=== PATIENT | male | born 1945 | race Caucasian/White ===

== ENCOUNTER → 2019-03-26 09:19 | Outpatient (BNVA) | payer OTHER, SELFPAY | PROVIDERS: Family Provider Emergency Medicine Emergency Medical Services; PCP Emergency Medicine Emergency Medical Services; Visit Provider Internal Medicine Cardiovascular Disease | DX: I48.91 Unspecified atrial fibrillation (principal) | CPT/HCPCS: 85610 ==

== ENCOUNTER → 2019-04-23 08:06 | Outpatient (BNVA) | payer OTHER, SELFPAY | PROVIDERS: Family Provider Emergency Medicine Emergency Medical Services; PCP Emergency Medicine Emergency Medical Services; Visit Provider Internal Medicine Cardiovascular Disease | DX: I48.91 Unspecified atrial fibrillation (principal) | CPT/HCPCS: 85610 ==

== ENCOUNTER → 2019-05-07 14:13 | Outpatient (BNVA) | payer OTHER, SELFPAY | PROVIDERS: Family Provider Emergency Medicine Emergency Medical Services; PCP Emergency Medicine Emergency Medical Services; Visit Provider Internal Medicine Cardiovascular Disease | DX: I48.91 Unspecified atrial fibrillation (principal); I50.9 Heart failure, unspecified; T46.2X1A Poisoning by other antidysrhythmic drugs, accidental (unintentional), initial encounter; I25.5 Ischemic cardiomyopathy; Z72.0 Tobacco use; I47.1 Supraventricular tachycardia; Z86.711 Personal history of pulmonary embolism; Z86.718 Personal history of other venous thrombosis and embolism; N18.9 Chronic kidney disease, unspecified; Z79.01 Long term (current) use of anticoagulants; I25.10 Atherosclerotic heart disease of native coronary artery without angina pectoris; J44.9 Chronic obstructive pulmonary disease, unspecified; E11.9 Type 2 diabetes mellitus without complications; I10 Essential (primary) hypertension; I73.9 Peripheral vascular disease, unspecified; Z98.890 Other specified postprocedural states; Z95.1 Presence of aortocoronary bypass graft | CPT/HCPCS: 85610 ==

== ENCOUNTER 2019-09-26 13:36 | Outpatient (CLI) | payer OTHER, SELFPAY ==
--- NOTE | 2019-09-26 13:51 | MR_ITS ---
WS: [id number] MRI CERVICAL SPINE NONCONTRAST TECHNIQUE: Sagittal T1, T2 and STIR imaging. Axial T2, gradient, and fiesta imaging. CLINICAL INFORMATION: PAIN COMPARISON: None. FINDINGS: Straightening of the normal cervical lordosis. Mild spondylitic changes. Slight retrolisthesis C3 on C4. Cord signal is normal. C2-C3: Normal. C3-C4: Slight retrolisthesis. Disc osteophyte complex eccentric to the left with mild to moderate rishabh tral canal stenosis. Severe left and mild right bony foraminal narrowing. Mild facet arthropathy. C4-C5: Disc osteophyte complex eccentric to the left with severe left foraminal narrowing. Mild to mo derate central canal stenosis. Mild right foraminal narrowing. Mild facet arthropathy. C5-C6: Disc osteophyte complex with endplate ridging. Mild central canal stenosis. Mild bilateral bon y foraminal narrowing. Moderate facet arthropathy. C6-C7: Mild disc osteophytic ridging. Moderate left and mild right bony foraminal narrowing. Moderate facet arthropathy. Mild central canal stenosis. Small shallow right disc osteophyte protrusion. C7-T1: Osteophytic ridging with Mild bilateral bony foraminal narrowing. Spinal canal is patent. T1-T2: Normal. Visualized brain stem structures: Normal. Prevertebral soft tissues: Normal. MR/MR cervical spin wo con* [id number] IMPRESSION: 1. Straightening of the normal cervical lordosis with mild spondylitic changes . Slight retrolisthesis C3 on C4. Cord signal is normal. 2. Mild to moderate central canal stenosis C3-C4 and C4-C5 due to disc osteoph yte complexes with slight indentation on cervical cord. 3. Mild central canal stenosis C6-C7 with a shallow right pericentral disc ost eophyte complex. 4. Multilevel moderate to severe bony foraminal narrowing mainly due to facet arthropathy with uncovertebral joint hypertrophy worse at left C3-C4, left C4-C 5, left C6-C7. 5. Mild edema in the left C2-3 articulating facets likely due to degenerative change.
== END 2019-09-26 13:37 | disposition home or self-care (01) ==
LOC: RADWPI 13:39
PROVIDERS: Family Provider Emergency Medicine Emergency Medical Services; PCP Emergency Medicine Emergency Medical Services; Visit Provider Family Medicine
DX: M54.2 Cervicalgia (principal)
CPT/HCPCS: 72141

== ENCOUNTER → 2019-10-11 09:11 | Outpatient (BNVA) | payer OTHER, SELFPAY | PROVIDERS: Family Provider Emergency Medicine Emergency Medical Services; PCP Emergency Medicine Emergency Medical Services; Visit Provider Internal Medicine Cardiovascular Disease | DX: I48.91 Unspecified atrial fibrillation (principal); Z79.01 Long term (current) use of anticoagulants | CPT/HCPCS: 85610 ==

== ENCOUNTER → 2019-10-29 08:25 | Outpatient (BNVA) | payer OTHER, SELFPAY | PROVIDERS: Family Provider Emergency Medicine Emergency Medical Services; PCP Emergency Medicine Emergency Medical Services; Referring Provider Emergency Medicine Emergency Medical Services; Visit Provider Anesthesiology Pain Medicine | DX: M54.12 Radiculopathy, cervical region (principal); M47.812 Spondylosis without myelopathy or radiculopathy, cervical region; M48.02 Spinal stenosis, cervical region; F17.210 Nicotine dependence, cigarettes, uncomplicated; Z79.891 Long term (current) use of opiate analgesic | CPT/HCPCS: 99205 ==

== ENCOUNTER → 2019-11-07 09:25 | Outpatient (BNVA) | payer OTHER, SELFPAY | PROVIDERS: Family Provider Emergency Medicine Emergency Medical Services; PCP Emergency Medicine Emergency Medical Services; Visit Provider Internal Medicine | DX: I48.91 Unspecified atrial fibrillation (principal) | CPT/HCPCS: 85610 ==

== ENCOUNTER → 2019-11-15 08:59 | Outpatient (BNVA) | payer OTHER, SELFPAY | PROVIDERS: Family Provider Emergency Medicine Emergency Medical Services; PCP Emergency Medicine Emergency Medical Services; Visit Provider Internal Medicine | DX: I48.91 Unspecified atrial fibrillation (principal); Z79.01 Long term (current) use of anticoagulants | CPT/HCPCS: 85610 ==

== ENCOUNTER → 2019-11-26 09:52 | Outpatient (BNVA) | payer OTHER, SELFPAY | PROVIDERS: Family Provider Emergency Medicine Emergency Medical Services; PCP Emergency Medicine Emergency Medical Services; Visit Provider Anesthesiology Pain Medicine | DX: M54.12 Radiculopathy, cervical region (principal); M47.812 Spondylosis without myelopathy or radiculopathy, cervical region; M48.02 Spinal stenosis, cervical region; F17.210 Nicotine dependence, cigarettes, uncomplicated; Z79.891 Long term (current) use of opiate analgesic | CPT/HCPCS: 99213 ==

== ENCOUNTER → 2020-01-24 10:37 | Outpatient (BNVA) | payer OTHER, SELFPAY | PROVIDERS: Family Provider Emergency Medicine Emergency Medical Services; PCP Emergency Medicine Emergency Medical Services; Visit Provider Anesthesiology Pain Medicine | DX: M54.12 Radiculopathy, cervical region (principal); M47.812 Spondylosis without myelopathy or radiculopathy, cervical region; M48.02 Spinal stenosis, cervical region; M16.0 Bilateral primary osteoarthritis of hip; M19.90 Unspecified osteoarthritis, unspecified site; F17.210 Nicotine dependence, cigarettes, uncomplicated; Z79.891 Long term (current) use of opiate analgesic | CPT/HCPCS: 99213 ==

== ENCOUNTER → 2020-02-21 09:42 | Outpatient (BNVA) | payer OTHER, SELFPAY | PROVIDERS: Family Provider Emergency Medicine Emergency Medical Services; PCP Emergency Medicine Emergency Medical Services; Visit Provider Anesthesiology Pain Medicine | DX: M54.2 Cervicalgia (principal); M47.812 Spondylosis without myelopathy or radiculopathy, cervical region; M48.02 Spinal stenosis, cervical region; M54.12 Radiculopathy, cervical region; M16.0 Bilateral primary osteoarthritis of hip; M19.90 Unspecified osteoarthritis, unspecified site; F17.210 Nicotine dependence, cigarettes, uncomplicated | CPT/HCPCS: 99213 ==

== ENCOUNTER → 2020-06-12 08:49 | Outpatient (BNVA) | payer OTHER, SELFPAY | PROVIDERS: Family Provider Emergency Medicine Emergency Medical Services; PCP Emergency Medicine Emergency Medical Services; Visit Provider Anesthesiology Pain Medicine | DX: M48.02 Spinal stenosis, cervical region (principal); M54.12 Radiculopathy, cervical region; M47.812 Spondylosis without myelopathy or radiculopathy, cervical region; M16.0 Bilateral primary osteoarthritis of hip; M19.90 Unspecified osteoarthritis, unspecified site; F17.210 Nicotine dependence, cigarettes, uncomplicated; Z79.891 Long term (current) use of opiate analgesic | CPT/HCPCS: 99214 ==

== ENCOUNTER → 2020-06-27 12:34 | Outpatient (BNVA) | payer OTHER, SELFPAY | PROVIDERS: Family Provider Emergency Medicine Emergency Medical Services; PCP Emergency Medicine Emergency Medical Services; Visit Provider Anesthesiology Pain Medicine | DX: M17.0 Bilateral primary osteoarthritis of knee (principal); F17.210 Nicotine dependence, cigarettes, uncomplicated; Z79.891 Long term (current) use of opiate analgesic | CPT/HCPCS: 20610; 77002; J7325 ==

== ENCOUNTER → 2020-10-02 08:29 | Outpatient (BNVA) | payer OTHER, SELFPAY | PROVIDERS: Family Provider Emergency Medicine Emergency Medical Services; PCP Emergency Medicine Emergency Medical Services; Visit Provider Anesthesiology Pain Medicine | DX: G89.29 Other chronic pain (principal); M54.12 Radiculopathy, cervical region; M48.02 Spinal stenosis, cervical region; M47.812 Spondylosis without myelopathy or radiculopathy, cervical region; M16.0 Bilateral primary osteoarthritis of hip; M79.601 Pain in right arm; M79.602 Pain in left arm; F17.210 Nicotine dependence, cigarettes, uncomplicated; Z79.891 Long term (current) use of opiate analgesic | CPT/HCPCS: 99214 ==

== ENCOUNTER → 2020-12-04 08:28 | Outpatient (BNVA) | payer OTHER, SELFPAY | PROVIDERS: Family Provider Emergency Medicine Emergency Medical Services; PCP Emergency Medicine Emergency Medical Services; Visit Provider Anesthesiology Pain Medicine | DX: G89.29 Other chronic pain (principal); M48.02 Spinal stenosis, cervical region; M54.12 Radiculopathy, cervical region; M47.812 Spondylosis without myelopathy or radiculopathy, cervical region; M79.601 Pain in right arm; M79.602 Pain in left arm; M16.0 Bilateral primary osteoarthritis of hip; M19.90 Unspecified osteoarthritis, unspecified site; Z79.891 Long term (current) use of opiate analgesic | CPT/HCPCS: 99214 ==

== ENCOUNTER → 2021-02-26 09:42 | Outpatient (BNVA) | payer OTHER, SELFPAY | PROVIDERS: Family Provider Emergency Medicine Emergency Medical Services; PCP Emergency Medicine Emergency Medical Services; Visit Provider Anesthesiology Pain Medicine | DX: M54.12 Radiculopathy, cervical region (principal); M47.812 Spondylosis without myelopathy or radiculopathy, cervical region; M48.02 Spinal stenosis, cervical region; M19.90 Unspecified osteoarthritis, unspecified site; M25.562 Pain in left knee; M79.601 Pain in right arm; M79.602 Pain in left arm; Z79.891 Long term (current) use of opiate analgesic | CPT/HCPCS: 99214 ==

== ENCOUNTER → 2021-04-23 10:11 | Outpatient (BNVA) | payer OTHER, SELFPAY | PROVIDERS: Family Provider Emergency Medicine Emergency Medical Services; PCP Emergency Medicine Emergency Medical Services; Visit Provider Anesthesiology Pain Medicine | DX: M54.12 Radiculopathy, cervical region (principal); M47.812 Spondylosis without myelopathy or radiculopathy, cervical region; M48.02 Spinal stenosis, cervical region; M16.0 Bilateral primary osteoarthritis of hip; M19.90 Unspecified osteoarthritis, unspecified site; F17.210 Nicotine dependence, cigarettes, uncomplicated; Z79.891 Long term (current) use of opiate analgesic | CPT/HCPCS: 99214 ==

== ENCOUNTER → 2021-07-30 14:16 | Outpatient (BNVA) | payer OTHER, SELFPAY | PROVIDERS: Family Provider Emergency Medicine Emergency Medical Services; PCP Emergency Medicine Emergency Medical Services; Visit Provider Anesthesiology Pain Medicine | DX: M54.12 Radiculopathy, cervical region (principal); M48.02 Spinal stenosis, cervical region; M47.812 Spondylosis without myelopathy or radiculopathy, cervical region; M16.0 Bilateral primary osteoarthritis of hip; M79.601 Pain in right arm; M79.602 Pain in left arm; M19.90 Unspecified osteoarthritis, unspecified site; F17.210 Nicotine dependence, cigarettes, uncomplicated; Z79.891 Long term (current) use of opiate analgesic | CPT/HCPCS: 99214 ==

== ENCOUNTER → 2021-09-24 10:43 | Outpatient (BNVA) | payer OTHER, SELFPAY | PROVIDERS: Family Provider Emergency Medicine Emergency Medical Services; PCP Emergency Medicine Emergency Medical Services; Visit Provider Anesthesiology Pain Medicine | DX: M54.12 Radiculopathy, cervical region (principal); M47.812 Spondylosis without myelopathy or radiculopathy, cervical region; M48.02 Spinal stenosis, cervical region; M79.601 Pain in right arm; M79.602 Pain in left arm; M16.0 Bilateral primary osteoarthritis of hip; M17.0 Bilateral primary osteoarthritis of knee; K59.03 Drug induced constipation; T40.2X5A Adverse effect of other opioids, initial encounter; F17.210 Nicotine dependence, cigarettes, uncomplicated; Z79.891 Long term (current) use of opiate analgesic | CPT/HCPCS: 99214 ==

== ENCOUNTER → 2021-11-26 09:59 | Outpatient (BNVA) | payer OTHER, SELFPAY | PROVIDERS: Family Provider Emergency Medicine Emergency Medical Services; PCP Emergency Medicine Emergency Medical Services; Visit Provider Anesthesiology Pain Medicine | DX: M54.12 Radiculopathy, cervical region (principal); M47.812 Spondylosis without myelopathy or radiculopathy, cervical region; M16.0 Bilateral primary osteoarthritis of hip; M25.562 Pain in left knee; F17.210 Nicotine dependence, cigarettes, uncomplicated; M48.02 Spinal stenosis, cervical region | CPT/HCPCS: 99214 ==

== ENCOUNTER → 2022-01-14 11:36 | Outpatient (BNVA) | payer OTHER, SELFPAY | PROVIDERS: Family Provider Emergency Medicine Emergency Medical Services; PCP Emergency Medicine Emergency Medical Services; Visit Provider Internal Medicine Cardiovascular Disease | DX: I25.10 Atherosclerotic heart disease of native coronary artery without angina pectoris (principal); Z95.1 Presence of aortocoronary bypass graft; I13.0 Hypertensive heart and chronic kidney disease with heart failure and stage 1 through stage 4 chronic kidney disease, or unspecified chronic kidney disease; E11.22 Type 2 diabetes mellitus with diabetic chronic kidney disease; F17.210 Nicotine dependence, cigarettes, uncomplicated; N18.9 Chronic kidney disease, unspecified; I50.9 Heart failure, unspecified; Z79.84 Long term (current) use of oral hypoglycemic drugs; Z86.718 Personal history of other venous thrombosis and embolism; Z79.01 Long term (current) use of anticoagulants; I48.91 Unspecified atrial fibrillation; I42.9 Cardiomyopathy, unspecified; Z86.711 Personal history of pulmonary embolism | CPT/HCPCS: 99213; 99214 ==

== ENCOUNTER → 2022-01-19 09:29 | Outpatient (BNVA) | payer OTHER, SELFPAY | PROVIDERS: Family Provider Emergency Medicine Emergency Medical Services; PCP Emergency Medicine Emergency Medical Services; Visit Provider Anesthesiology Pain Medicine | DX: M54.12 Radiculopathy, cervical region (principal); M48.02 Spinal stenosis, cervical region; M47.812 Spondylosis without myelopathy or radiculopathy, cervical region; M16.0 Bilateral primary osteoarthritis of hip; M19.90 Unspecified osteoarthritis, unspecified site; M25.562 Pain in left knee; F17.210 Nicotine dependence, cigarettes, uncomplicated | CPT/HCPCS: 99214 ==

== ENCOUNTER → 2022-01-25 08:58 | Outpatient (BNVA) | payer OTHER, SELFPAY | PROVIDERS: Family Provider Emergency Medicine Emergency Medical Services; PCP Emergency Medicine Emergency Medical Services; Visit Provider Anesthesiology Pain Medicine | DX: M17.12 Unilateral primary osteoarthritis, left knee (principal); M47.812 Spondylosis without myelopathy or radiculopathy, cervical region; M54.12 Radiculopathy, cervical region; M48.02 Spinal stenosis, cervical region; M16.0 Bilateral primary osteoarthritis of hip; M79.601 Pain in right arm; M79.602 Pain in left arm; F17.210 Nicotine dependence, cigarettes, uncomplicated | CPT/HCPCS: 20610; 99212 ==

== ENCOUNTER → 2022-03-23 10:38 | Outpatient (BNVA) | payer OTHER, SELFPAY | PROVIDERS: Family Provider Emergency Medicine Emergency Medical Services; PCP Emergency Medicine Emergency Medical Services; Visit Provider Anesthesiology Pain Medicine | DX: M48.02 Spinal stenosis, cervical region (principal); M54.12 Radiculopathy, cervical region; M47.812 Spondylosis without myelopathy or radiculopathy, cervical region; M25.562 Pain in left knee; M16.0 Bilateral primary osteoarthritis of hip; M19.90 Unspecified osteoarthritis, unspecified site; M79.601 Pain in right arm; M79.602 Pain in left arm | CPT/HCPCS: 99214 ==

== ENCOUNTER → 2022-04-27 10:34 | Outpatient (BNVA) | payer OTHER, SELFPAY | PROVIDERS: Family Provider Emergency Medicine Emergency Medical Services; PCP Emergency Medicine Emergency Medical Services; Visit Provider Anesthesiology Pain Medicine | DX: G89.29 Other chronic pain (principal); M47.812 Spondylosis without myelopathy or radiculopathy, cervical region; M54.12 Radiculopathy, cervical region; M16.0 Bilateral primary osteoarthritis of hip; M48.02 Spinal stenosis, cervical region; M19.90 Unspecified osteoarthritis, unspecified site; M25.562 Pain in left knee | CPT/HCPCS: 20610; 99214 ==

== ENCOUNTER → 2022-06-22 10:46 | Outpatient (BNVA) | payer OTHER, SELFPAY | PROVIDERS: Family Provider Emergency Medicine Emergency Medical Services; PCP Emergency Medicine Emergency Medical Services; Visit Provider Anesthesiology Pain Medicine | DX: M25.562 Pain in left knee (principal); M54.12 Radiculopathy, cervical region; M47.812 Spondylosis without myelopathy or radiculopathy, cervical region; M48.02 Spinal stenosis, cervical region; M16.0 Bilateral primary osteoarthritis of hip; M19.90 Unspecified osteoarthritis, unspecified site | CPT/HCPCS: 99214 ==

== ENCOUNTER → 2022-07-02 10:46 | Outpatient (BNVA) | payer OTHER, SELFPAY | PROVIDERS: Family Provider Emergency Medicine Emergency Medical Services; PCP Emergency Medicine Emergency Medical Services; Visit Provider Internal Medicine Cardiovascular Disease | DX: I48.91 Unspecified atrial fibrillation (principal); G47.30 Sleep apnea, unspecified | CPT/HCPCS: 99215 ==

== ENCOUNTER 2022-07-29 10:09 | Outpatient (CLI) | payer OTHER, SELFPAY ==
--- NOTE | 2022-07-29 10:39 | CT_ITS ---
WS: [id number] CT NECK TECHNIQUE: Contrast-enhanced CT of the neck with coronal and sagittal reformatted images. CLINICAL INFORMATION: OTHER DZ OF SALIVARY GLANDS/LESIONS OF ORAL MUCOSA COMPARISON: None. DLP: 248.[address] scans at [facility] use at least one of these dose optimization techniques: automated e xposure control; mA and/or kV adjustment per patient size (includes targeted exams where dose is matc hed to clinical indication); or iterative reconstruction. FINDINGS:No evidence of supraglottic or glottic mass. Normal subglottic airway. Multiple bilateral pa rotid nodules largest in the LEFT measures 2.1 x 1.5 CM. Largest in the RIGHT measures 1.6 x 1.3 CM. Some of these demonstrate central low attenuation likely central necrosis. Correlation with history o f malignancy. No lymphadenopathy along the cervical chains. Recommend correlation with history of War thin tumor. A few of the nodules may represent intraparotid lymph nodes. Normal posterior nasopharynx. Normal parapharyngeal fat. Mastoid air cells well aerated. Paranasal si nuses are well aerated. Vascular calcification. Submandibular glands are normal. Parotid glands are n ormal. Advanced emphysematous changes in the lung apices. Noncalcified nodule RIGHT upper lobe posteriorly m easuring 10.1 mm. This was present in 2017 and appears slightly larger. This could be followed up wit h chest CT. Moderate to advanced spondylitic changes cervical spine. Prior postoperative changes cervical spine. CT/CT neck w con* [id number] IMPRESSION: 1. Bilateral solid parotid nodules with some central necrosis. Largest on the LEFT measures 2.1 x 1.5 CM and largest in the RIGHT measures 1.6 x 1.3 cm. 2. Correlation for history of Warthin tumor. Lymphoma and metastatic disease less likely considering lack of cervical chain lymphadenopathy 3. No evidence of supraglottic or glottic mass. 4. 10 mm nodule RIGHT upper lobe. Recommend follow-up chest CT.
[2022-07-29] MEDS: iohexol 350 mg/mL 500 mL Btl (per mL) IV (10:59)
[2022-07-29 11:44] LABS: Blood Urea Nitrogen 26 mg/dL (8-23)
== END 2022-07-29 10:10 | disposition home or self-care (01) ==
PROVIDERS: PCP Emergency Medicine Emergency Medical Services; Visit Provider Specialist
DX: K11.9 Disease of salivary gland, unspecified (principal); K13.70 Unspecified lesions of oral mucosa; R91.1 Solitary pulmonary nodule; Z86.018 Personal history of other benign neoplasm
CPT/HCPCS: 70491; 82565; 84520; Q9967

== ENCOUNTER → 2022-08-19 09:44 | Outpatient (BNVA) | payer OTHER, SELFPAY | PROVIDERS: PCP Emergency Medicine Emergency Medical Services; Visit Provider Anesthesiology Pain Medicine | DX: M48.02 Spinal stenosis, cervical region (principal); M47.812 Spondylosis without myelopathy or radiculopathy, cervical region; M54.12 Radiculopathy, cervical region; M16.0 Bilateral primary osteoarthritis of hip; M54.50 Low back pain, unspecified | CPT/HCPCS: 99214 ==

== ENCOUNTER → 2022-09-28 09:05 | Outpatient (BNVA) | payer OTHER, SELFPAY | PROVIDERS: PCP Emergency Medicine Emergency Medical Services; Visit Provider Nurse Practitioner Family | DX: L81.4 Other melanin hyperpigmentation (principal); D22.5 Melanocytic nevi of trunk; L85.3 Xerosis cutis; L57.8 Other skin changes due to chronic exposure to nonionizing radiation; I87.2 Venous insufficiency (chronic) (peripheral); L97.829 Non-pressure chronic ulcer of other part of left lower leg with unspecified severity; L57.0 Actinic keratosis; D69.2 Other nonthrombocytopenic purpura; Z85.828 Personal history of other malignant neoplasm of skin; Z72.0 Tobacco use | CPT/HCPCS: 17000; 17003; 99214 ==

== ENCOUNTER → 2022-10-21 10:36 | Outpatient (BNVA) | payer OTHER, SELFPAY | PROVIDERS: PCP Emergency Medicine Emergency Medical Services; Visit Provider Internal Medicine Cardiovascular Disease | DX: Z85.828 Personal history of other malignant neoplasm of skin (principal); M16.0 Bilateral primary osteoarthritis of hip; G47.30 Sleep apnea, unspecified; I25.5 Ischemic cardiomyopathy; Z72.0 Tobacco use; I47.1 Supraventricular tachycardia; Z86.711 Personal history of pulmonary embolism; I13.0 Hypertensive heart and chronic kidney disease with heart failure and stage 1 through stage 4 chronic kidney disease, or unspecified chronic kidney disease; E11.22 Type 2 diabetes mellitus with diabetic chronic kidney disease; N18.9 Chronic kidney disease, unspecified; I50.9 Heart failure, unspecified; Z86.718 Personal history of other venous thrombosis and embolism; I73.9 Peripheral vascular disease, unspecified; Z95.1 Presence of aortocoronary bypass graft; J44.9 Chronic obstructive pulmonary disease, unspecified; I25.10 Atherosclerotic heart disease of native coronary artery without angina pectoris; Z79.01 Long term (current) use of anticoagulants; Z98.890 Other specified postprocedural states; I48.91 Unspecified atrial fibrillation; Z87.898 Personal history of other specified conditions; Z79.4 Long term (current) use of insulin | CPT/HCPCS: 99214 ==

== ENCOUNTER → 2022-10-26 08:58 | Outpatient (BNVA) | payer OTHER, SELFPAY | PROVIDERS: PCP Emergency Medicine Emergency Medical Services; Visit Provider Nurse Practitioner Family | DX: L85.3 Xerosis cutis (principal); L57.8 Other skin changes due to chronic exposure to nonionizing radiation; Z85.828 Personal history of other malignant neoplasm of skin; I87.2 Venous insufficiency (chronic) (peripheral); D69.2 Other nonthrombocytopenic purpura; L57.0 Actinic keratosis; L97.829 Non-pressure chronic ulcer of other part of left lower leg with unspecified severity | CPT/HCPCS: 99214 ==

== ENCOUNTER → 2022-11-24 14:06 | Outpatient (BNVA) | payer OTHER, SELFPAY | PROVIDERS: PCP Emergency Medicine Emergency Medical Services; Referring Provider Emergency Medicine Emergency Medical Services; Visit Provider Internal Medicine | DX: E03.9 Hypothyroidism, unspecified; E78.2 Mixed hyperlipidemia; E11.40 Type 2 diabetes mellitus with diabetic neuropathy, unspecified; E11.59 Type 2 diabetes mellitus with other circulatory complications; Z95.1 Presence of aortocoronary bypass graft; I25.2 Old myocardial infarction; I50.9 Heart failure, unspecified; I73.9 Peripheral vascular disease, unspecified; Z79.84 Long term (current) use of oral hypoglycemic drugs; Z79.890 Hormone replacement therapy | CPT/HCPCS: 99204 ==

== ENCOUNTER → 2023-01-11 09:05 | Outpatient (BNVA) | payer OTHER, SELFPAY | PROVIDERS: PCP Emergency Medicine Emergency Medical Services; Visit Provider Podiatrist Foot & Ankle Surgery | DX: B35.1 Tinea unguium (principal); I73.9 Peripheral vascular disease, unspecified; G62.9 Polyneuropathy, unspecified; E11.42 Type 2 diabetes mellitus with diabetic polyneuropathy; Z79.4 Long term (current) use of insulin | CPT/HCPCS: 11721; 99203 ==

== ENCOUNTER → 2023-01-20 09:43 | Outpatient (BNVA) | payer OTHER, SELFPAY | PROVIDERS: PCP Emergency Medicine Emergency Medical Services; Visit Provider Internal Medicine | DX: E78.2 Mixed hyperlipidemia (principal); E11.9 Type 2 diabetes mellitus without complications; Z79.4 Long term (current) use of insulin; Z79.84 Long term (current) use of oral hypoglycemic drugs | CPT/HCPCS: 99214 ==

== ENCOUNTER → 2023-01-25 08:00 | Outpatient (BNVA) | payer OTHER, SELFPAY | PROVIDERS: PCP Emergency Medicine Emergency Medical Services; Visit Provider Podiatrist Foot & Ankle Surgery | DX: E11.621 Type 2 diabetes mellitus with foot ulcer (principal); I73.9 Peripheral vascular disease, unspecified; G62.9 Polyneuropathy, unspecified; L97.529 Non-pressure chronic ulcer of other part of left foot with unspecified severity; L97.519 Non-pressure chronic ulcer of other part of right foot with unspecified severity; E11.42 Type 2 diabetes mellitus with diabetic polyneuropathy | CPT/HCPCS: 99213 ==

== ENCOUNTER → 2023-01-31 12:58 | Outpatient (BNVA) | payer OTHER, SELFPAY | PROVIDERS: PCP Emergency Medicine Emergency Medical Services; Visit Provider Nurse Practitioner Family | DX: I25.5 Ischemic cardiomyopathy (principal); F17.210 Nicotine dependence, cigarettes, uncomplicated; I13.0 Hypertensive heart and chronic kidney disease with heart failure and stage 1 through stage 4 chronic kidney disease, or unspecified chronic kidney disease; N18.9 Chronic kidney disease, unspecified; I50.9 Heart failure, unspecified | CPT/HCPCS: 99213 ==

== ENCOUNTER → 2023-02-01 08:28 | Outpatient (BNVA) | payer OTHER, SELFPAY | PROVIDERS: PCP Emergency Medicine Emergency Medical Services; Visit Provider Podiatrist Foot & Ankle Surgery | DX: I73.9 Peripheral vascular disease, unspecified; E11.621 Type 2 diabetes mellitus with foot ulcer; L97.511 Non-pressure chronic ulcer of other part of right foot limited to breakdown of skin; G62.9 Polyneuropathy, unspecified; D48.5 Neoplasm of uncertain behavior of skin; L57.0 Actinic keratosis; L57.8 Other skin changes due to chronic exposure to nonionizing radiation; E11.42 Type 2 diabetes mellitus with diabetic polyneuropathy; L81.4 Other melanin hyperpigmentation; D18.01 Hemangioma of skin and subcutaneous tissue; L82.1 Other seborrheic keratosis; Z79.4 Long term (current) use of insulin; Z08 Encounter for follow-up examination after completed treatment for malignant neoplasm; Z85.828 Personal history of other malignant neoplasm of skin | CPT/HCPCS: 17000; 69100; 99213; 99214 ==

== ENCOUNTER → 2023-02-17 09:20 | Outpatient (BNVA) | payer OTHER, SELFPAY | PROVIDERS: PCP Emergency Medicine Emergency Medical Services; Visit Provider Anesthesiology Pain Medicine | DX: M25.569 Pain in unspecified knee; M47.812 Spondylosis without myelopathy or radiculopathy, cervical region; M54.12 Radiculopathy, cervical region; M16.0 Bilateral primary osteoarthritis of hip; M48.02 Spinal stenosis, cervical region; M17.12 Unilateral primary osteoarthritis, left knee; M54.9 Dorsalgia, unspecified; E11.52 Type 2 diabetes mellitus with diabetic peripheral angiopathy with gangrene; E11.621 Type 2 diabetes mellitus with foot ulcer; L97.511 Non-pressure chronic ulcer of other part of right foot limited to breakdown of skin | CPT/HCPCS: 97597; 99213; 99214 ==

== ENCOUNTER → 2023-03-02 14:15 | Outpatient (BNVA) | payer OTHER, SELFPAY | PROVIDERS: PCP Emergency Medicine Emergency Medical Services; Visit Provider Podiatrist Foot & Ankle Surgery | DX: Z51.89 Encounter for other specified aftercare (principal); I73.9 Peripheral vascular disease, unspecified; G62.9 Polyneuropathy, unspecified; E11.42 Type 2 diabetes mellitus with diabetic polyneuropathy; Z79.4 Long term (current) use of insulin | CPT/HCPCS: 99213 ==

== ENCOUNTER → 2023-03-10 14:00 | Outpatient (BNVA) | payer OTHER, SELFPAY | PROVIDERS: PCP Emergency Medicine Emergency Medical Services; Visit Provider Podiatrist Foot & Ankle Surgery | DX: Z51.89 Encounter for other specified aftercare (principal); I73.9 Peripheral vascular disease, unspecified; G62.9 Polyneuropathy, unspecified; E11.42 Type 2 diabetes mellitus with diabetic polyneuropathy; Z79.4 Long term (current) use of insulin | CPT/HCPCS: 99213 ==

== ENCOUNTER → 2023-03-24 10:42 | Outpatient (BNVA) | payer OTHER, SELFPAY | PROVIDERS: PCP Emergency Medicine Emergency Medical Services; Visit Provider Podiatrist Foot & Ankle Surgery | DX: Z51.89 Encounter for other specified aftercare (principal); I73.9 Peripheral vascular disease, unspecified; G62.9 Polyneuropathy, unspecified; E11.69 Type 2 diabetes mellitus with other specified complication; E11.42 Type 2 diabetes mellitus with diabetic polyneuropathy; Z79.4 Long term (current) use of insulin | CPT/HCPCS: 99213 ==

== ENCOUNTER → 2023-04-07 08:37 | Outpatient (BNVA) | payer OTHER, SELFPAY | PROVIDERS: PCP Emergency Medicine Emergency Medical Services; Visit Provider Anesthesiology Pain Medicine | DX: M54.9 Dorsalgia, unspecified; M47.812 Spondylosis without myelopathy or radiculopathy, cervical region; M54.12 Radiculopathy, cervical region; M16.0 Bilateral primary osteoarthritis of hip; M48.02 Spinal stenosis, cervical region; I73.9 Peripheral vascular disease, unspecified; E11.42 Type 2 diabetes mellitus with diabetic polyneuropathy; G62.9 Polyneuropathy, unspecified; R23.8 Other skin changes; Z79.4 Long term (current) use of insulin | CPT/HCPCS: 99213; 99214 ==

== ENCOUNTER → 2023-04-14 08:24 | Outpatient (BNVA) | payer OTHER, SELFPAY | PROVIDERS: PCP Emergency Medicine Emergency Medical Services; Visit Provider Podiatrist Foot & Ankle Surgery | DX: Z51.89 Encounter for other specified aftercare (principal); I73.9 Peripheral vascular disease, unspecified; G62.9 Polyneuropathy, unspecified; R23.8 Other skin changes; E11.42 Type 2 diabetes mellitus with diabetic polyneuropathy; Z79.4 Long term (current) use of insulin | CPT/HCPCS: 99213 ==

== ENCOUNTER → 2023-04-19 09:31 | Outpatient (BNVA) | payer OTHER, SELFPAY | PROVIDERS: PCP Emergency Medicine Emergency Medical Services; Visit Provider Anesthesiology Pain Medicine | DX: M54.9 Dorsalgia, unspecified; M47.812 Spondylosis without myelopathy or radiculopathy, cervical region; M54.12 Radiculopathy, cervical region; M48.02 Spinal stenosis, cervical region; M16.0 Bilateral primary osteoarthritis of hip | CPT/HCPCS: 20610; 99214; J1030; J3490 ==

== ENCOUNTER → 2023-04-28 10:32 | Outpatient (BNVA) | payer OTHER, SELFPAY | PROVIDERS: PCP Emergency Medicine Emergency Medical Services; Visit Provider Internal Medicine Cardiovascular Disease | DX: I48.91 Unspecified atrial fibrillation (principal); I13.0 Hypertensive heart and chronic kidney disease with heart failure and stage 1 through stage 4 chronic kidney disease, or unspecified chronic kidney disease; E11.22 Type 2 diabetes mellitus with diabetic chronic kidney disease; I50.9 Heart failure, unspecified; Z79.4 Long term (current) use of insulin; Z98.890 Other specified postprocedural states; Z79.01 Long term (current) use of anticoagulants; I25.10 Atherosclerotic heart disease of native coronary artery without angina pectoris; Z95.1 Presence of aortocoronary bypass graft; Z86.718 Personal history of other venous thrombosis and embolism; Z86.711 Personal history of pulmonary embolism; Z72.0 Tobacco use; I25.5 Ischemic cardiomyopathy; E78.2 Mixed hyperlipidemia; N18.9 Chronic kidney disease, unspecified; J44.9 Chronic obstructive pulmonary disease, unspecified; G47.30 Sleep apnea, unspecified; E11.51 Type 2 diabetes mellitus with diabetic peripheral angiopathy without gangrene | CPT/HCPCS: 99214 ==

== ENCOUNTER → 2023-05-05 08:32 | Outpatient (BNVA) | payer OTHER, SELFPAY | PROVIDERS: PCP Emergency Medicine Emergency Medical Services; Visit Provider Podiatrist Foot & Ankle Surgery | DX: Z51.89 Encounter for other specified aftercare (principal); E11.621 Type 2 diabetes mellitus with foot ulcer; I73.9 Peripheral vascular disease, unspecified; G62.9 Polyneuropathy, unspecified; R23.8 Other skin changes; L60.2 Onychogryphosis; L97.411 Non-pressure chronic ulcer of right heel and midfoot limited to breakdown of skin; E11.42 Type 2 diabetes mellitus with diabetic polyneuropathy; Z79.4 Long term (current) use of insulin | CPT/HCPCS: 11721 ==

== ENCOUNTER → 2023-07-07 08:16 | Outpatient (BNVA) | payer OTHER, SELFPAY | PROVIDERS: PCP Emergency Medicine Emergency Medical Services; Visit Provider Podiatrist Foot & Ankle Surgery | DX: M72.2 Plantar fascial fibromatosis (principal); B35.1 Tinea unguium; I73.9 Peripheral vascular disease, unspecified; G62.9 Polyneuropathy, unspecified; E11.42 Type 2 diabetes mellitus with diabetic polyneuropathy; Z79.4 Long term (current) use of insulin | CPT/HCPCS: 11721; 99213 ==

== ENCOUNTER → 2023-07-21 08:29 | Outpatient (BNVA) | payer OTHER, SELFPAY | PROVIDERS: PCP Emergency Medicine Emergency Medical Services; Visit Provider Internal Medicine | DX: E11.9 Type 2 diabetes mellitus without complications (principal); E78.2 Mixed hyperlipidemia; E03.9 Hypothyroidism, unspecified; Z79.4 Long term (current) use of insulin; Z79.890 Hormone replacement therapy | CPT/HCPCS: 99214 ==

== ENCOUNTER → 2023-09-08 08:41 | Outpatient (BNVA) | payer OTHER, SELFPAY | PROVIDERS: PCP Emergency Medicine Emergency Medical Services; Visit Provider Podiatrist Foot & Ankle Surgery | DX: B35.1 Tinea unguium (principal); I73.9 Peripheral vascular disease, unspecified; G62.9 Polyneuropathy, unspecified; E11.42 Type 2 diabetes mellitus with diabetic polyneuropathy; Z79.4 Long term (current) use of insulin | CPT/HCPCS: 11721 ==

== ENCOUNTER → 2023-10-20 11:40 | Outpatient (BNVA) | payer OTHER, SELFPAY | PROVIDERS: PCP Emergency Medicine Emergency Medical Services; Visit Provider Internal Medicine Cardiovascular Disease | DX: I48.91 Unspecified atrial fibrillation (principal); I13.0 Hypertensive heart and chronic kidney disease with heart failure and stage 1 through stage 4 chronic kidney disease, or unspecified chronic kidney disease; I50.9 Heart failure, unspecified; E11.22 Type 2 diabetes mellitus with diabetic chronic kidney disease; N18.9 Chronic kidney disease, unspecified; Z98.890 Other specified postprocedural states; Z79.4 Long term (current) use of insulin; Z79.01 Long term (current) use of anticoagulants; I25.10 Atherosclerotic heart disease of native coronary artery without angina pectoris; Z95.1 Presence of aortocoronary bypass graft; I73.9 Peripheral vascular disease, unspecified; Z86.718 Personal history of other venous thrombosis and embolism; Z86.711 Personal history of pulmonary embolism; Z72.0 Tobacco use; I25.5 Ischemic cardiomyopathy; E78.2 Mixed hyperlipidemia; J44.9 Chronic obstructive pulmonary disease, unspecified | CPT/HCPCS: 99214 ==

== ENCOUNTER → 2023-11-07 13:12 | Outpatient (BNVA) | payer OTHER, SELFPAY | PROVIDERS: PCP Emergency Medicine Emergency Medical Services; Visit Provider Specialist | DX: M17.12 Unilateral primary osteoarthritis, left knee (principal) | CPT/HCPCS: 20610; 73560; 73565; 99204 ==

== ENCOUNTER → 2023-11-08 14:50 | Outpatient (BNVA) | payer OTHER, SELFPAY | PROVIDERS: PCP Emergency Medicine Emergency Medical Services; Visit Provider Orthopaedic Surgery | DX: Z01.818 Encounter for other preprocedural examination (principal); M54.12 Radiculopathy, cervical region; M54.2 Cervicalgia; E11.9 Type 2 diabetes mellitus without complications | CPT/HCPCS: 72050; 80053; 81003; 81015; 83036; 85025; 99204 ==

== ENCOUNTER → 2023-11-17 08:29 | Outpatient (BNVA) | payer MEDICARE, SELFPAY | PROVIDERS: PCP Dermatology; Visit Provider Podiatrist Foot & Ankle Surgery | DX: B35.1 Tinea unguium (principal); I73.9 Peripheral vascular disease, unspecified; G62.9 Polyneuropathy, unspecified; E11.42 Type 2 diabetes mellitus with diabetic polyneuropathy; Z79.4 Long term (current) use of insulin | CPT/HCPCS: 11721 ==

== ENCOUNTER → 2023-11-18 09:29 | Outpatient (BNVA) | payer MEDICARE, SELFPAY | PROVIDERS: PCP Dermatology; Visit Provider Family Medicine | DX: Z01.818 Encounter for other preprocedural examination (principal) | CPT/HCPCS: 93005 ==

== ENCOUNTER 2023-11-28 05:39 | Day surgery (SDC) | payer OTHER, SELFPAY ==
--- NOTE | 2023-11-26 08:05 | ANES.PREANE2 ---
Pre-Anesthetic Assessment Height/Weight: Height 5 ft 11 in Operation Date: 11/28/23 07:00 Proposed Procedures p Anterior Cervical Discectomy & Fusion ACDF w/ Anterior Interbody Fusion w/ Cage w/ Instrumentation w/ Allograft w/ Navigation(Not Applicable) - Kaveh Santacruz, DO Was Beta Marilyn taken within 24 hours: Yes Was Clonidine taken within 24 hours: N/A Social Tobacco and No tobacco Exam alert, oriented x 3, clear to auscultation bilaterally and regular rate & rhythm Airway Submandibular: within normal limits Cervical ROM: within normal limits Mallampati: Class III Dentition: other (Multiple missing teeth) Anesthetic Plan ASA status: 3 Anesthesia: General Other: No prior issues with anesthesia in the past N.p.o. since midnight History of SUSANNE Prior DVTs with history of PE, on chronic apixaban. Patient currently has an IVC filter in place Hypertension on carvedilol and metoprolol Takes chronic Lasix S/p CABG with CHF Follows with suggestion clerk Dr. Callaway, most recent appointment 10/20/2023 Follows with hospital corpsman in [place], no recent changes Labs 11/07 reviewed and acceptable for surgery EKG with sinus bradycardia, old inferior MA RCRI is 15% placing this patient at a higher risk of a cardiac event during general anesthesia Risks/benefits explained to patient Plan for GETA Medications/Allergies Home Medications Medication Instructions Recorded Confirmed Last Taken Type allopurinol 300 mg tablet 300 mg PO DAILY 05/07/19 11/25/23 11/27/23 History aspirin 81 mg tablet,delayed 81 mg PO DAILY 05/07/19 11/28/23 Unknown History release (Aspir-) atorvastatin 20 mg tablet 10 mg PO DAILY 05/07/19 11/28/23 11/27/23 History colchicine 0.6 mg tablet (Colcrys) 0.6 mg PO DAILY 05/07/19 11/28/23 Unknown History gemfibrozil 600 mg tablet 600 mg PO BID 05/07/19 11/28/23 11/27/23 History glyburide 5 mg tablet 5 mg PO BID 05/07/19 11/28/23 11/27/23 History insulin lispro 100 unit/mL See Rx Instructions SUBCUT TID 05/07/19 11/28/23 11/27/23 History subcutaneous pen (Humalog KwikPen (U-100) Insulin) levothyroxine 150 mcg capsule 150 mcg PO DAILY 05/07/19 11/28/23 11/27/23 History lisinopril 20 mg tablet 20 mg PO DAILY 05/07/19 11/28/23 11/27/23 History melatonin 10 mg capsule 10 mg PO DAILY 05/07/19 11/28/23 Unknown History metoprolol tartrate 50 mg tablet 50 mg PO BID 05/07/19 11/28/23 11/28/23 History terazosin 1 mg capsule 1 mg PO BID 05/07/19 11/28/23 11/27/23 History nitroglycerin 0.4 mg sublingual 0.4 mg sublingual Q5M PRN chest 08/27/19 11/28/23 Unknown Rx tablet (Nitrostat) pain #25 tabs acetaminophen 650 mg 650 mg PO Q12H 02/21/20 11/25/23 11/27/23 History tablet,extended release baclofen 10 mg tablet 10 mg PO .1/2 -1 TID PRN spasm 02/18/21 11/28/23 Unknown Rx #60 tabs naloxegol 25 mg tablet 25 mg PO QAM constipation #30 tabs 09/24/21 11/28/23 11/27/23 Rx cholecalciferol (vitamin D3) 50 50 mcg PO DAILY 01/14/22 11/28/23 11/27/23 History mcg (2,000 unit) capsule diphenhydramine HCl 25 mg capsule 25 mg PO .hs PRN Allergy Symptoms 01/14/22 11/28/23 Unknown History (Allergy Relief (diphenhydramine)) mometasone 200 mcg/actuation HFA 2 puff inhalation BID 01/14/22 11/28/23 Unknown History aerosol inhaler (Asmanex HFA) olodaterol 2.5 mcg/actuation mist 2 inh inhalation DAILY 01/14/22 11/28/23 Unknown History for inhalation (Striverdi Respimat) cyclobenzaprine 5 mg tablet 5 mg PO TID PRN muscle spasm #90 03/23/22 11/28/23 Unknown Rx tabs mupirocin 2 % topical ointment 1 applic topical BID #22 grams 04/29/22 11/28/23 Unknown Rx imiquimod 5 % topical cream packet 1 applic topical ONCE 07/02/22 11/28/23 Unknown History CBD Gummies PO 10/21/22 11/17/23 Unknown History furosemide 80 mg tablet 80 mg PO DAILY 10/21/22 11/28/23 11/28/23 History empagliflozin 25 mg tablet 25 mg PO DAILY 11/24/22 11/28/23 11/27/23 History (Jardiance) insulin glargine 100 unit/mL (3 60 unit (0.6 mL) SUBCUT DAILY 30 11/24/22 11/28/23 11/27/23 Rx mL) subcutaneous pen (Lantus days #30 mL Solostar U-100 Insulin) blood-glucose meter,continuous #1 ea 12/09/22 11/17/23 Unknown Rx (Dexcom G7 [employer]pper Marketing Manager) diabetic shoes with 3 inserts #1 ea 01/11/23 11/17/23 Unknown Rx diabetic shoes with 3 inserts #1 ea 02/01/23 11/17/23 Unknown Rx carvedilol 12.5 mg tablet 12.5 mg PO BID #180 tabs 06/14/23 11/28/23 11/28/23 Rx apixaban 2.5 mg tablet (Eliquis) 2.5 mg PO BID #180 tabs 08/11/23 11/25/23 11/25/23 Rx blood-glucose sensor (Dexcom G7 #36 ea 08/29/23 11/17/23 Unknown Rx Sensor device) [id number] 3.5 2 drp ophthalmic (eye) Q4H 7 days 11/14/23 11/28/23 Unknown Rx mg/mL-10,000 unit/mL-0.1% eye #5 mL drops (Maxitrol) Allergies Allergy/AdvReac Type Severity Reaction Status Date / Time amiodarone Allergy Severe ALGY-Difficulty Verified 11/28/23 06:20 Breathing adhesive tape Allergy rips skin Verified 11/28/23 06:20 Sulfa (Sulfonamide Allergy Unknown Verified 11/28/23 06:20 Antibiotics) gabapentin AdvReac Mild INCREASED Verified 11/28/23 06:20 BURNING IN FEET PFSH Anesthesia Medical History History of nonmelanoma skin cancer Spinal stenosis of cervical region Cervical radiculitis Amiodarone toxicity Sleep apnea Ischemic cardiomyopathy Tobacco abuse SVT (supraventricular tachycardia) History of pulmonary embolism History of DVT (deep vein thrombosis) Chronic kidney disease (CKD) PAD (peripheral artery disease) Diabetes HTN (hypertension) COPD (chronic obstructive pulmonary disease) ASHD (arteriosclerotic heart disease) CHF (congestive heart failure) Hypothyroidism Anticoagulant long-term use Atrial fibrillation Surgical History Hx of neck surgery 12/13/19 Neftali-removed 2 discs and placed 2 plastic discs S/P CABG (coronary artery bypass graft) H/O cardiac radiofrequency ablation Family History Grandmother Cancer Father Diabetes Mother Diabetes Brother Diabetes Hypertension Sister Diabetes Denies family history of Anesthesia complication Bleeding disorder Social History Smoking and tobacco/nicotine status: current every day tobacco/nicotine user cigarettes Packs smoked per day: 1 Alcohol intake: former Substance/Drug Use: never Caregiver/support person: Yes Household members: spouse Marital status: service: Yes branch: [employer] Data Anesthesia Cardiac Studies: No Data to Display
[2023-11-28] VITALS (15 sets, daily range): BP systolic 83–137; BP diastolic 40–77; PULSE 63–72; RESP 14–19; TEMP 36.4–36.6; O2SAT 87–94; BMI 29.4
--- NOTE | 2023-11-28 06:21 | W.PM.OPSUD ---
Surgery/Procedure H&P Update DATE OF PROCEDURE: November 28, 2023 DATE H&P PERFORMED: 11/18/23 H&P UPDATE INFORMATION: I have reviewed H&P completed within last 30 days, I have examined patient prior to procedure and No changes to prior documentation PREOP DIAGNOSIS: Cervical radiculopathy PLANNED PROCEDURE: Operation Date: 11/28/23 07:00 Proposed Procedures p Anterior Cervical Discectomy & Fusion ACDF w/ Anterior Interbody Fusion w/ Cage w/ Instrumentation w/ Allograft w/ Navigation(Not Applicable) - Kaveh Santacruz DO
[2023-11-28] MEDS: sodium chloride 0.9% 1,000 ML 30 ML IV (06:43)
[2023-11-28] MEDS: ceFAZolin 2,000 mg SDV 2000 MG IVP (07:09)
[2023-11-28] MEDS: lidocaine-epi 1% 20 mL INJ INJECTION (07:48)
--- NOTE | 2023-11-28 09:01 | XR_ITS ---
WS: [id number] C-ARM RADIOGRAPHS CERVICAL SPINE; 3 IMAGES HISTORY: OR PICS COMPARISON: None available. Intraoperative imaging during cervical fusion. Patient is intubated. Disc prosthesis now present at C 3-4 and C4-5. Anterior fusion hardware from C4-C6. XR/XR cervical spine 3V* [id number] IMPRESSION: Intraoperative imaging during anterior cervical fusion from C4-C6. Prior disc p rostheses are reidentified at C3-4 and C4-5.
--- NOTE | 2023-11-28 09:14 | PM.OP ---
Operative Report Date of procedure: November 28, 2023 Pre-op diagnosis: Cervical spondylosis with myelopathy Post-op diagnosis: same Procedure done: 1. Anterior diskectomy C5/6 2. Anterior discectomy C6/7 3. Insertion of cage C5/6 4. Insertion of Cage C6/7 5. Instrumentation with anterior plate from C5-C7 6. Use of allograft Surgeon: Kaveh Santacruz DO Estimated blood loss (mL): 10 Procedure: 1. Anterior diskectomy C5/6 2. Anterior discectomy C6/7 3. Insertion of cage C5/6 4. Insertion of Cage C6/7 5. Instrumentation with anterior plate from C5-C7 6. Use of allograft The patient was taken to the operating room, where he underwent general endotracheal anesthesia without complications. He was then positioned supine on the operating table, and all areas of impingement were well padded. The arms were carefully padded and tucked at his sides. A roll was placed between the shoulder blades.. An x-ray was done to determine the appropriate level for the skin incision. The entire neck was then sterilely prepped and draped in the usual fashion. Neuromonitoring was attached prior to prepping. A transverse skin incision was made and carried down to the platysma muscle. This was then split in line with its fibers. Blunt dissection was carried down medial to the carotid sheath and lateral to the trachea and esophagus until the anterior cervical spine was visualized. A needle was placed into a disc and an x-ray was done to determine its location. The longus colli muscles were then elevated bilaterally with the electrocautery unit. Self-retaining retractors were placed deep to the longus colli muscle. Attention was brought to the C5/6 level that was confirmed on x-ray. A caspar pin was placed into the C5 vertebrae and the C6 vertebrae. The disk space was then distracted. The microscope was then brought in. A radical anterior discectomies were performed at C5/6. This included complete removal of the anterior annulus, nucleus, and posterior annulus. The posterior longitudinal ligament was removed as were the posterior osteophytes. Foraminotomies were then accomplished bilaterally. This was done using a high speed sarmad, kerrison rongeurs and curretes Once all of this was accomplished, the curved currette was used to check for any residual compression. The central canal was wide open as were the foramen. A high-speed bur was used to remove the cartilaginous endplates above and below the interspace. Bleeding cancellous bone was exposed. The disc space were measured and appropriate size cage were placed sterilely onto the field. Allograft graft was packed into the cages. The cage was then placed and there was good juxtaposition against the bleeding decorticated surfaces and good distraction of each interspace. Attention was brought to the next interspace. The Callao pins were removed. Bone wax was used to prevent any bleeding from occurring at the pin sites. Attention was brought to the C6/7 level that was confirmed on x-ray. A caspar pin was placed into the C6 vertebrae and the C7 vertebrae. The disk space was then distracted. The microscope was then brought in. A radical anterior discectomies were performed at C6/7. This included complete removal of the anterior annulus, nucleus, and posterior annulus. The posterior longitudinal ligament was removed as were the posterior osteophytes. Foraminotomies were then accomplished bilaterally. This was done using a high speed sarmad, kerrison rongeurs and curretes Once all of this was accomplished, the curved currette was used to check for any residual compression. The central canal was wide open as were the foramen. A high-speed bur was used to remove the cartilaginous endplates above and below the interspace. Bleeding cancellous bone was exposed. The disc space were measured and appropriate size cage were placed sterilely onto the field. Allograft graft was packed into the cages. The cage was then placed and there was good juxtaposition against the bleeding decorticated surfaces and good distraction of each interspace. The Callao pins were removed. Bone wax was used to prevent any bleeding from occurring at the pin sites. The appropriate size anterior cervical locking plate was chosen and bent into gentle lordosis. Two screws were then placed into each of the vertebral bodies at C5, C6 and C7. There was excellent purchase. A final x-ray was done confirming good position of the hardware and Cages. The locking screws were then applied, also with excellent purchase. Following a final copious irrigation, there was good hemostasis and no dural leaks. The carotid pulse was strong. The wounds were then closed in layers using 2-0 Vicryl suture for the platysma muscle, 2-0 Vicryl suture for the subcutaneous tissue, and 4-0 monocryl suture in a subcuticular skin closure. Glue was placed followed by application of a sterile dressing. The drain was hooked to bulb suction. A soft collar was applied. The patient was then carefully returned to the supine position on his hospital bed where he was reversed and extubated and taken to the recovery room having tolerated the procedure well.
--- NOTE | 2023-11-28 11:29 | SUR.PHASEII ---
11:00 ROM AND SENSATION IN ALL 4 EXTREMITIES. ABLE TO SWALLOW LIQUIDS WITHOUT DIFFICULTY.
--- NOTE | 2023-11-28 12:35 | ANE.PACU2 ---
Inpatient post-anesthesia follow up: Airway intact: Yes Vital signs: Temperature 97.7 F Pulse Rate 67 Respiratory Rate 16 Blood Pressure 107/65 Pulse Oximetry 92 Oxygen Delivery Me thod Room Air Oxygen Flow Rate 4 Fraction of Inspir ed Oxygen Hydration adequate: Yes Nausea and vomiting: No Pain level: 1 Mental status: Baseline
[2023-11-28 16:04] LABS: Glucose Point of Care 218 mg/dL (70-110)
== END 2023-11-28 12:35 | disposition home or self-care (01) ==
PROVIDERS: PCP Dermatology; Visit Provider Orthopaedic Surgery
PROC: 0RB30ZZ Excision of Cervical Vertebral Disc, Open Approach (ICD-10-PCS; CPT 22551; principal; 2023-11-28 07:00)
DX: M47.12 Other spondylosis with myelopathy, cervical region (principal); G47.33 Obstructive sleep apnea (adult) (pediatric); Z86.718 Personal history of other venous thrombosis and embolism; Z86.711 Personal history of pulmonary embolism; Z95.1 Presence of aortocoronary bypass graft; I11.0 Hypertensive heart disease with heart failure; I50.9 Heart failure, unspecified; Z79.82 Long term (current) use of aspirin; I25.10 Atherosclerotic heart disease of native coronary artery without angina pectoris; E03.9 Hypothyroidism, unspecified; Z79.01 Long term (current) use of anticoagulants; I48.91 Unspecified atrial fibrillation
CPT/HCPCS: 20930; 22551; 22552; 22845; 22853 ×2; 36416; 72040; 76000; 82962; C1713; C1763; C9359; J0131; J0330; J0690; J1100; J2250; J2405; J2704; J2710; J3010; J3490; J7030; P9045

== ENCOUNTER 2023-11-28 20:06 | Emergency (ER) | payer OTHER, MEDICARE, SELFPAY ==
[2023-11-28 20:18] VITALS: BP 182/98; PULSE 97; RESP 20; TEMP 36.3; O2SAT 97
[2023-11-28 21:16] LABS: Add Urine Culture? No; Add Urine Microscopic? YES; Bilirubin Urine Neg (Negative); Blood Urine Neg (Negative); Glucose Urine UA 2+ (Normal); Ketones Urine Negative (Negative); Leukocyte Esterase Urine Negative (Negative); Nitrate Urine Negative (Negative); Protein Urine Trace (Negative); Specific Gravity, Urine 1.015 (1.005-1.030); Squamous Epithelial Cell Urine 0-4 /hpf (0-5); Urine Appearance Clear (CLEAR); Urine Color Yellow (Yellow); Urobilinogen Urine Neg (Negative); pH Urine 5 (5-7)
== END 2023-11-28 21:43 | disposition left against medical advice (07) ==
PROVIDERS: Emergency Medicine; Emergency Provider Family Medicine; PCP Dermatology
DX: Z53.21 Procedure and treatment not carried out due to patient leaving prior to being seen by health care provider (principal)
CPT/HCPCS: 81001

== ENCOUNTER → 2023-12-01 13:32 | Outpatient (BNVA) | payer OTHER, MEDICARE, SELFPAY | PROVIDERS: PCP Dermatology; Visit Provider Orthopaedic Surgery | DX: M54.2 Cervicalgia (principal); Z98.1 Arthrodesis status | CPT/HCPCS: 72040; 99024 ==

== ENCOUNTER → 2023-12-13 08:33 | Outpatient (BNVA) | payer OTHER, MEDICARE, SELFPAY | PROVIDERS: PCP Dermatology; Visit Provider Orthopaedic Surgery | DX: Z98.1 Arthrodesis status (principal) | CPT/HCPCS: 99024 ==

== ENCOUNTER 2024-02-13 13:55 | Outpatient (CLI) | payer OTHER, SELFPAY ==
[2024-02-13 14:14] LABS: Bilirubin Urine Negative (Negative); Blood Urine 3+ (Negative); Glucose Urine UA Negative (Normal); Ketones Urine Negative (Negative); Leukocyte Esterase Urine 3+ (Negative); Nitrate Urine Positive (Negative); Protein Urine Trace (Negative); Specific Gravity, Urine 1.011 (1.005-1.030); Urine Appearance Cloudy (CLEAR); Urine Color Yellow (Yellow); pH Urine 5.5 (5-7)
[2024-02-13 14:19] LABS: Add Urine Microscopic? YES; Bacteria Urine 4+ /hpf; Hyaline Casts Urine 2.46 /lpf; RBC Urine >100 /hpf (0-2); Squamous Epithelial Cell Urine 0-5 /hpf (0-5); WBC Urine >100 /hpf (0-5)
[2024-02-13 14:23] LABS: Add Urine Culture? Yes
== END 2024-02-13 13:56 | disposition home or self-care (01) ==
LOC: LAB 14:00
PROVIDERS: PCP Nurse Practitioner Family; Visit Provider Nurse Practitioner Family
DX: E11.8 Type 2 diabetes mellitus with unspecified complications (principal)
CPT/HCPCS: 81001

== ENCOUNTER → 2024-04-19 08:57 | Outpatient (BNVA) | payer OTHER, SELFPAY | PROVIDERS: PCP Nurse Practitioner Family; Visit Provider Nurse Practitioner Family | DX: I48.91 Unspecified atrial fibrillation (principal); I11.0 Hypertensive heart disease with heart failure; I50.9 Heart failure, unspecified; Z98.890 Other specified postprocedural states; Z79.01 Long term (current) use of anticoagulants; I25.10 Atherosclerotic heart disease of native coronary artery without angina pectoris; Z86.711 Personal history of pulmonary embolism; E78.2 Mixed hyperlipidemia | CPT/HCPCS: 99214 ==

== ENCOUNTER → 2024-05-07 12:28 | Outpatient (BNVA) | payer OTHER, SELFPAY | PROVIDERS: PCP Nurse Practitioner Family; Visit Provider Anesthesiology Pain Medicine | DX: M47.812 Spondylosis without myelopathy or radiculopathy, cervical region (principal); M54.12 Radiculopathy, cervical region; M48.02 Spinal stenosis, cervical region; M16.0 Bilateral primary osteoarthritis of hip; M54.9 Dorsalgia, unspecified | CPT/HCPCS: 99214 ==

== ENCOUNTER 2024-05-09 12:58 | Outpatient (CLI) | payer OTHER, SELFPAY ==
--- NOTE | 2024-05-09 13:05 | CTR_ITS ---
PROCEDURE INFORMATION: Exam: CT Abdomen And Pelvis Without And With Contrast Exam date and time: 05/09/2024 1:41 PM Age: 78 years old Clinical indication: Prior surgery; Surgery date: 6+ months; Surgery type: Cabg; New onset of hematuria, ; additional info: New onset gross hematuria TECHNIQUE: Imaging protocol: Computed tomography of the abdomen and pelvis without and with contrast. Radiation optimization: All CT scans at this facility use at least one of these dose optimization techniques: automated exposure control; mA and/or kV adjustment per patient size (includes targeted exams where dose is matched to clinical indication); or iterative reconstruction. Contrast material: OMNI 350; Contrast volume: 100 ml; Contrast route: INTRAVENOUS (IV); COMPARISON: CT pelvis w con* [id number] 05/09/2024 1:41 PM RADIATION DOSE METRICS: Total DLP (mGy-cm): 966.05 FINDINGS: Coronary arteries: Coronary artery calcifications. Liver: Borderline 19 cm hepatomegaly. Gallbladder and biliary ducts: Cholelithiasis. Pancreas: Normal. No ductal dilation. Spleen: Normal. No splenomegaly. Adrenal glands: Lobular left adrenal mass measuring 4.7 x 2.3 cm in size. 1.7 cm right intrarenal mass. It is of low attenuation. Adrenal protocol CT or MRI of the adrenals is recommended for further evaluation. Kidneys and ureters: Nonobstructing right renal calculi. Stomach and bowel: Unremarkable. No obstruction. No mucosal thickening. Appendix: No evidence of appendicitis. Intraperitoneal space: Unremarkable. No free air. No significant fluid collection. Vasculature: IVC filter. Lymph nodes: Unremarkable. No enlarged lymph nodes. Urinary bladder: Unremarkable as visualized. Reproductive: Unremarkable as visualized. Bones/joints: Unremarkable. No acute fracture. Soft tissues: Unremarkable. CT/CT abdomen wo/w con [id number] IMPRESSION: 1. Bilateral adrenal masses, left greater than right. Adrenal protocol CT or MR recommended for further evaluation. 2. Cholelithiasis. COMMENTS: 1. For patients with an IVC filter, recommend assessment for a management plan for the patient's IVC filter. If there is no established management plan, recommend referral to an interventional clinician on a nonemergent basis for evaluation. 2. Consistent with the [employer]'s Incidental Findings Committee white paper (J Am Eduardo Radiol 2018): Any incidental renal lesion less than 1 cm or classified as too small to characterize, or any incidental cystic renal lesion characterized as simple-appearing, is likely benign. No follow-up imaging is recommended for these lesions per consensus recommendations based on imaging criteria.
--- NOTE | 2024-05-09 13:05 | CT_ITS ---
WS: [id number] CT SINUSES TECHNIQUE: Noncontrast CT of the paranasal sinuses with coronal and sagittal reformatted images. CLINICAL INFORMATION: ATROPHIC RHINITIS COMPARISON: None. DLP: 341.[address] scans at [facility] use at least one of these dose optimization techniques: automated exposure control; mA and/or kV adjustment per patient size (includes targeted exams where dose is matched to clinical indication); or iterative reconstruction. FINDINGS: Prior presumed postoperative changes extensive RIGHT maxillary antrostomy with turbinectomies. Wide maxillary antrostomy defect. Nasal septum appears intact. Mild LEFT RIGHT nasal septal deviation. Soft tissue thickening and mucosal thickening in the RIGHT maxillary sinus. Mucosal thickening in the RIGHT ethmoid air cells and RIGHT frontal sinus. Dehiscence of the calvarium overlying the RIGHT frontal air cells. LEFT ostiomeatal unit is patent. Mild mucosal thickening in the LEFT maxillary sinus. Complete opacification of the RIGHT sphenoid sinus and sphenoid ostia. LEFT sphenoid sinus is well aerated. Mastoid air cells are well aerated. Normal posterior nasopharynx. CT/CT sinus wo con* [id number] IMPRESSION: 1. Wide presumed RIGHT maxillary antrostomy with resection of the RIGHT nasal turbinates. Mucosal thickening involving the RIGHT maxillary sinus with secreti ons. Opacification of the RIGHT sphenoid sinus with partial opacification of th e RIGHT ethmoid air cells and RIGHT frontal sinus. 2. Bony dehiscence overlying the RIGHT frontal sinus. 3. Mucosal thickening LEFT maxillary sinus. 4. No other acute findings.
--- NOTE | 2024-05-09 13:05 | CTR_ITS ---
PROCEDURE INFORMATION: Exam: CT Pelvis With Contrast Exam date and time: 05/09/2024 1:41 PM Age: 78 years old Clinical indication: Other: Hematuria; Prior surgery; Surgery date: 6+ months; Surgery type: Cabg; Additional info: New onset gross hematuria TECHNIQUE: Imaging protocol: Computed tomography of the pelvis with contrast. Radiation optimization: All CT scans at this facility use at least one of these dose optimization techniques: automated exposure control; mA and/or kV adjustment per patient size (includes targeted exams where dose is matched to clinical indication); or iterative reconstruction. Contrast material: OMNI 350; Contrast volume: 100 ml; Contrast route: INTRAVENOUS (IV); COMPARISON: CT abdomen wo/w con [id number] 05/09/2024 1:41 PM RADIATION DOSE METRICS: Total DLP (mGy-cm): 966.05 FINDINGS: Intestine: Justin constipation a large amount of colonic fecal material particularly in rectum. Appendix: No evidence of appendicitis. Intraperitoneal space: Unremarkable. No free air. No significant fluid collection. Lymph nodes: Unremarkable. No enlarged lymph nodes. Reproductive: Normal as visualized. Urinary bladder: The urinary bladder is collapsed around a Bingham catheter. Because of this it is impossible to evaluate for a small mural mass. Thickening of the wall of the urinary bladder may be present, this difficult to evaluate as it is collapsed. Bones/joints: Left hip replacement. Degenerative changes of the right hip. Soft tissues: Unremarkable. CT/CT pelvis w con* [id number] IMPRESSION: Possibly thickened urinary bladder wall. The urinary bladder is collapsed around a Bingham catheter I can not evaluate for a small mass.
[2024-05-09] MEDS: iohexol 350 mg/mL 500 mL Btl (per mL) IV (14:04)
== END 2024-05-09 12:59 | disposition home or self-care (01) ==
LOC: RAD 12:59
PROVIDERS: PCP Nurse Practitioner Family; Visit Provider Nurse Practitioner Family
DX: Z01.89 Encounter for other specified special examinations (principal); R93.89 Abnormal findings on diagnostic imaging of other specified body structures; Z98.890 Other specified postprocedural states; J34.2 Deviated nasal septum; R93.5 Abnormal findings on diagnostic imaging of other abdominal regions, including retroperitoneum; K80.20 Calculus of gallbladder without cholecystitis without obstruction; R93.2 Abnormal findings on diagnostic imaging of liver and biliary tract; N28.1 Cyst of kidney, acquired
CPT/HCPCS: 70486; 72193; 74170

== ENCOUNTER → 2024-05-11 11:17 | Outpatient (BNVA) | payer OTHER, SELFPAY | PROVIDERS: PCP Nurse Practitioner Family; Visit Provider Specialist | DX: M17.12 Unilateral primary osteoarthritis, left knee (principal); Z71.89 Other specified counseling | CPT/HCPCS: 20610; J7327 ==

== ENCOUNTER 2024-05-30 00:30 | Observation (INO) | payer OTHER, MEDICARE, SELFPAY ==
[2024-05-30] VITALS (10 sets, daily range): BP systolic 96–148; BP diastolic 50–92; PULSE 69–97; RESP 14–20; TEMP 36.4–36.8; O2SAT 90–93; BMI 27.8
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
--- NOTE | 2024-05-30 00:43 | PC.NURSE ---
Pts daughter Elvie called shortly after pt arrival. She states pt is not allowed to come back home. Pt lives with his daughter. States we need to send him to a residential.
[2024-05-30] MEDS: nicotine 21 mg Patch 1 PATCH TRANSDERMA (03:35)
--- NOTE | 2024-05-30 03:40 | PM.HP ---
Providers/Chief Complaint Primary Care Provider: Sulema Barraza APRN Chief Complaint: fall History of Present Illness Ghassan Kline is a 78 year old male with history of diabetes, DVT, anticoagulation, hypertension, COPD, uses oxygen concentrator, active smoker, moved with his daughter January 2024, not been able to walk now secondary to significant muscle weakness and diabetes presented for not been able to take care of himself requesting intermediate at [place]. Patient is stating that he moved out of his place in January last year because he was not able to use his legs anymore he has lost significant amount of weight, experiencing muscle mass loss, attributing to diabetes, smokes cigarettes on daily basis, does not drink alcohol stating that he quit drinking alcohol 15 years ago, has been financially supporting his grandson and daughter, recently got electric scooter from [place] and a walker with a platform however he is not able to take care of himself independently and relies on his daughter for daily activities, stating that daughter drinks heavily on daily basis and he cannot rely on her anymore and she is going out of town to spend the weekend to see a friend in [place]. Patient is stating that he would like to work through [place] to go to [facility] and take his electric scooter and the walker with him I was asked to admit the patient to help him with the placement, I do not see any initial screening workup in the ER, will request D-dimer, procalcitonin hemoglobin A1c BNP TSH B12 lock CBC BMP magnesium and phosphorus Bingham catheter has been placed Goals of care discussed with the patient: He is stating DNR/DNI He was requesting nicotine patch Review of Systems Const: Reports: change in weight; Denies: fever(s) Eyes: Denies: change in vision ENMT: Denies: throat pain Card: Denies: chest pain Resp: Reports: dyspnea GI: Denies: abdominal pain : Denies: flank pain Musc: Reports: limited range of motion, muscle weakness and decrease in muscle mass Medications/Allergies Home Medications ?Medication ?Instructions ?Recorded ?Confirmed ?Last Taken ?Type aspirin 81 mg tablet,delayed 81 mg PO DAILY 05/07/19 05/11/24 Unknown History release (Aspir-) atorvastatin 20 mg tablet 10 mg PO DAILY 05/07/19 05/11/24 11/27/23 History levothyroxine 150 mcg capsule 150 mcg PO DAILY 05/07/19 05/11/24 11/27/23 History melatonin 10 mg capsule 10 mg PO DAILY 05/07/19 05/11/24 Unknown History terazosin 1 mg capsule 1 mg PO BID 05/07/19 05/11/24 11/27/23 History nitroglycerin 0.4 mg sublingual 0.4 mg sublingual Q5M PRN chest 08/27/19 05/11/24 Unknown Rx tablet (Nitrostat) pain #25 tabs acetaminophen 650 mg 650 mg PO Q12H 02/21/20 05/11/24 11/27/23 History tablet,extended release cholecalciferol (vitamin D3) 50 50 mcg PO DAILY 01/14/22 05/11/24 11/27/23 History mcg (2,000 unit) capsule diphenhydramine HCl 25 mg capsule 25 mg PO .hs PRN Allergy Symptoms 01/14/22 05/11/24 Unknown History (Allergy Relief (diphenhydramine)) mupirocin 2 % topical ointment 1 applic topical BID #22 grams 04/29/22 05/11/24 Unknown Rx imiquimod 5 % topical cream packet 1 applic topical ONCE 07/02/22 05/11/24 Unknown History CBD Gummies PO 10/21/22 05/11/24 Unknown History blood-glucose meter,continuous #1 ea 12/09/22 05/11/24 Unknown Rx (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) diabetic shoes with 3 inserts #1 ea 01/11/23 05/11/24 Unknown Rx diabetic shoes with 3 inserts #1 ea 02/01/23 05/11/24 Unknown Rx blood-glucose sensor (Dexcom G7 #9 ea 12/05/23 05/11/24 Unknown Rx Sensor device) hydrocodone 5 mg-acetaminophen 325 1 - 2 tab PO .Q4-6H PRN pain 7 02/13/24 05/11/24 Unknown Rx mg tablet days #40 tabs apixaban 5 mg tablet (Eliquis) 5 mg PO BID 04/19/24 05/11/24 Unknown History carvedilol 6.25 mg tablet 6.25 mg PO BID #180 tabs 04/19/24 05/11/24 Unknown Rx duloxetine 20 mg capsule,delayed 20 mg PO BID 04/19/24 05/11/24 Unknown History release famotidine 20 mg tablet 20 mg PO BID 04/19/24 05/11/24 Unknown History furosemide 80 mg tablet 40 mg PO BID 04/19/24 05/11/24 Unknown History gabapentin 300 mg capsule 300 mg PO DAILY 04/19/24 05/11/24 Unknown History lisinopril 2.5 mg tablet 2.5 mg PO DAILY 04/19/24 05/11/24 Unknown History peg 400-propylene glycol (PF) 0.4 1 drp ophthalmic (eye) DAILY PRN 04/19/24 05/11/24 Unknown History %-0.3 % eye drops in a dropperette (Systane (PF)) Allergies Allergy/AdvReac Type Severity Reaction Status Date / Time amiodarone Allergy Severe ALGY-Difficulty Verified 05/30/24 00:38 Breathing adhesive tape Allergy rips skin Verified 05/30/24 00:38 Sulfa (Sulfonamide Allergy Unknown Verified 05/30/24 00:38 Antibiotics) gabapentin AdvReac Mild INCREASED Verified 05/30/24 00:38 BURNING IN FEET PFSH Acute PFSH: Medical History (Updated 05/30/24 @ 03:50 by Juan J Kaplan MD) Facet arthropathy, cervical Encounter for long-term opiate analgesic use History of nonmelanoma skin cancer Spinal stenosis of cervical region Cervical radiculitis Amiodarone toxicity Sleep apnea Ischemic cardiomyopathy Tobacco abuse SVT (supraventricular tachycardia) History of pulmonary embolism History of DVT (deep vein thrombosis) Chronic kidney disease (CKD) PAD (peripheral artery disease) Diabetes HTN (hypertension) COPD (chronic obstructive pulmonary disease) ASHD (arteriosclerotic heart disease) CHF (congestive heart failure) Hypothyroidism Anticoagulant long-term use Atrial fibrillation Surgical History Hx of neck surgery 12/13/19 Neftali-removed 2 discs and placed 2 plastic discs S/P CABG (coronary artery bypass graft) H/O cardiac radiofrequency ablation Family History Grandmother Cancer Father Diabetes Mother Diabetes Brother Diabetes Hypertension Sister Diabetes Denies family history of Anesthesia complication Bleeding disorder Social History Smoking and tobacco/nicotine status: current every day tobacco/nicotine user cigarettes Packs smoked per day: 1 Alcohol intake: former Substance/Drug Use: never Caregiver/support person: Yes Household members: spouse Marital status: service: Yes branch: [employer] Vitals/I&O/Wt Last Vital Signs Temp 97.8 F 05/30/24 00:32 Pulse 88 05/30/24 01:37 Resp 18 05/30/24 00:32 BP 148/82 05/30/24 01:37 Pulse Ox 91 05/30/24 01:37 O2 Del Method Room Air 05/30/24 00:32 05/29/24 05/29/24 05/30/24 14:59 22:59 06:59 Intake Total 0 / 0 Balance 0 / 0 Weight last 48 hrs Weight 90.718 kg Physical Exam Narrative: Extremity significant weakness He is able to wiggle his toes Lower extremity edema noted Bruises and laceration noted of extremities Awake and alert AOx4 Able to follow commands Currently on 2 L Hypertensive Emaciated, malnourished sarcopenia Severe protein calorie malnourishment signs present Hand muscles atrophy noted Weak cough S1, S2 variable No audible stridor or wheezing A&P Assessment and plan (1) HTN (hypertension): (2) Ischemic cardiomyopathy: (3) Atrial fibrillation: (4) PAD (peripheral artery disease): (5) Anticoagulant long-term use: (6) History of DVT (deep vein thrombosis): (7) Diabetes: (8) Chronic kidney disease (CKD): (9) History of nonmelanoma skin cancer: (10) Osteoarthritis, hip, bilateral: (11) Peripheral neuropathy: (12) COPD (chronic obstructive pulmonary disease): (13) Sleep apnea: (14) Failure to thrive: Plan Mr. Klien has coronary disease and has had bypass surgery.? He has stage IV chronic kidney disease, diabetes, neuropathy, history of pulmonary emboli and DVTs, anticoagulated with warfarin, atrial fibrillation, SVT, tobacco abuse, COPD, easy bruisability of his skin, ischemic cardiomyopathy, congestive heart failure.? 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 Not requesting intermediate placement because daughter is not able to help him much Generalized weakness, fatigue Severe protein calorie malnourishment Weight loss 50 pounds over 3 to 4 months Emaciated with significant sarcopenia Diabetes related mild prophy Significant neuropathy causing inability to walk on his own Hip arthritis and chronic back issues contributing towards his inability to walk Will request physical therapy Patient recently received electric scooter and a walker with a platform Will request screening workup in the ER Will consult case management for intermediate placement Continue Eliquis Continue antihypertensive regimen and levothyroxine DNR/DNI Consistent carb diet PDMP PDMP Reviewed: Not Reviewed Attestations Medical Necessity Statement*: Patient requesting intermediate placement, hopefully will get intermediate placement in next 24 to 48 hours Diagnoses HTN (hypertension) I10 Ischemic cardiomyopathy I25.5 Atrial fibrillation I48.91 PAD (peripheral artery disease) I73.9 Anticoagulant long-term use Z79.01 History of DVT (deep vein thrombosis) Z86.718 Diabetes E11.9 Chronic kidney disease (CKD) N18.9 History of nonmelanoma skin cancer Z85.828 Osteoarthritis, hip, bilateral M16.0 Peripheral neuropathy G62.9 COPD (chronic obstructive pulmonary disease) J44.9 Sleep apnea G47.30 Failure to thrive
--- NOTE | 2024-05-30 04:12 | PC.NURSE ---
A report was faxed to [facility] at [phone].
[2024-05-30 04:45] LABS: Amphetamines Screen Urine Negative (Negative); Barbiturates Screen Urine Negative (Negative); Benzodiazepines Screen Urine Negative (Negative); Cocaine Screen Urine Negative (Negative); Opiate Screen Urine Negative (Negative); PCP Screen Urine Negative (Negative); THC Screen Urine Negative (Negative)
[2024-05-30 04:50] LABS: Basophils # 0.1 10^3/uL (0.0-0.1); Basophils % 0.7 %; Eosinophils # 0.9 10^3/uL (0.0-0.8); Hematocrit 38.4 % (37-53); Lymphocytes # 1.6 10^3/uL (0.8-4.8); Lymphocytes % 15.5 %; Mean Corpuscular HGB Conc 31.3 g/dL (30-55); Mean Corpuscular Hemoglobin 26.7 pg (27-33); Mean Corpuscular Volume 85.3 fl (82-101); Mean Platelet Volume 9.5 fL (7.4-10.4); Monocytes % 9.4 %; Neutrophils # 6.83 10^3/uL (1.8-7.7); Neutrophils % 65.1 %; Nucleated Red Blood Cells % 0 %; Platelet Count 241 10^3/cmm (157-399); White Blood Count 10.48 10^3/uL (3.29-11.43)
[2024-05-30 05:07] LABS: D Dimer 2.55 ug/mLFEU (0-0.59); Estmated Average Glucose 186; Hemoglobin A1C 8.1 % (4.0-6.0)
[2024-05-30 05:13] LABS: Anion Gap 17.3 (5-19); Blood Urea Nitrogen 49 mg/dL (8-23); Calcium 9.5 mg/dL (8.5-10.5); Carbon Dioxide 24 mmol/L (22-29); Chloride 103 mmol/L (98-107); Creatinine Clr Calc Pharmacy 42.5972; Glucose 168 mg/dL (65-115); Osmolality Calculated 309 mOsm/kg (285-295); Phosphorus 3.7 mg/dL (2.5-4.5); Potassium 3.3 mmol/L (3.5-5.1); Sodium 141 mmol/L (136-145)
[2024-05-30 05:35] LABS: NT Pro B Type Natriuretic Pept 271 pg/mL (0-450); Procalcitonin 0.11 ng/mL (0-0.5); Thyroid Stimulating Hormone 0.29 uIU/mL (0.27-4.20); Vitamin B12 648 pg/mL (232-1245)
[2024-05-30 05:48] LABS: Alcohol Level < 10 mg/dL (0-10)
--- NOTE | 2024-05-30 05:48 | PC.NURSE ---
pt has a partial pack of cigarettes and wealth management manager, refused to part with both but nurse informed pt that he cannot have a wealth management manager and his wealth management manager will be locked up and given back to pt upon discharge. pt also has $100 bill and refused to have it locked up, cell phone and glasses present on admission along with necklace pt is wearing.
[2024-05-30] MEDS: levothyroxine 150 mcg Tablet PO (06:19)
[2024-05-30 06:28] LABS: Glucose Point of Care 190 mg/dL (70-110)
[2024-05-30] MEDS: apixaban 5 mg Tablet PO ×2 (08:13→17:04)
[2024-05-30] MEDS: insulin lispro 100 unit/1 mL SUBCUT ×4 (08:13→21:16)
[2024-05-30] MEDS: carvedilol 6.25 mg Tablet PO ×2 (08:13→17:04)
[2024-05-30] MEDS: HYDROcodone-acetaminophen 5-325 mg Tablet 1 TAB PO (08:44)
[2024-05-30] MEDS: FUROsemide 20 mg Tablet PO (10:41)
[2024-05-30 12:25] LABS: Glucose Point of Care 212 mg/dL (70-110)
--- NOTE | 2024-05-30 12:59 | PC.PHAR ---
[facility] .
[2024-05-30 16:49] LABS: Glucose Point of Care 163 mg/dL (70-110)
--- NOTE | 2024-05-30 17:24 | PM.MISC ---
Miscellaneous Note Purpose of Documentation: Overnight labs and H&P reviewed. Patient reports chronic longstanding lower extremity edema likely related to venous insufficiency and a history of DVTs and PEs for which she is currently on Eliquis. He states he has been unable to walk for at least the past 1 to 2 years. This was attributed to issues with his hip and knee previously. His left leg is significantly weaker compared to the right side. He has also been suffering from urinary retention and has a chronic Bingham in place for the last 6 months. More recently he has started having issues with bowel incontinence as well. He denies having had any stroke. Denies any history of lumbar surgeries or prior history of lumbar nerve compression. [facility]. He needs safe discharge planning. Patient's HbA1c is noted to be at 8.1, will need initiation of antidiabetic regimen at discharge. Currently do not see any oral hypoglycemics on his medication list.
[2024-05-30] MEDS: potassium chloride oral liq 20 mEq/15 mL UDC PO (18:02)
[2024-05-30 19:17] LABS: SARS Covid-2 Antigen Negative (Negative)
[2024-05-30 20:26] LABS: Glucose Point of Care 152 mg/dL (70-110)
[2024-05-31 03:00] VITALS: BP 127/80; PULSE 78; RESP 18; TEMP 36.3; O2SAT 92
[2024-05-31] MEDS: HYDROcodone-acetaminophen 5-325 mg Tablet 1 TAB PO (03:44)
[2024-05-31] MEDS: levothyroxine 150 mcg Tablet PO (06:08)
[2024-05-31 06:35] LABS: Alanine Aminotransferase < 5 U/L (0-41); Albumin Level 3.3 g/dL (3.5-5.2); Alkaline Phosphatase 111 U/L (40-130); Anion Gap 16.4 (5-19); Aspartate Amino Transferase 10 U/L (0-40); Blood Urea Nitrogen 50 mg/dL (8-23); Calcium 9.5 mg/dL (8.5-10.5); Carbon Dioxide 24 mmol/L (22-29); Chloride 107 mmol/L (98-107); Creatinine Clr Calc Pharmacy 45.2596; Globulin 3.6 g/dL (1.3-4.6); Glucose 170 mg/dL (65-115); Osmolality Calculated 315 mOsm/kg (285-295); Potassium 3.4 mmol/L (3.5-5.1); Sodium 144 mmol/L (136-145); Total Bilirubin 0.3 mg/dL (0.15-1.2); Total Protein 6.9 g/dL (6.6-8.7)
[2024-05-31 06:56] LABS: Glucose Point of Care 155 mg/dL (70-110)
[2024-05-31 07:00] VITALS: BP 100/62; PULSE 71; RESP 16; TEMP 36.6; O2SAT 93
[2024-05-31] MEDS: carvedilol 6.25 mg Tablet PO (08:22)
[2024-05-31] MEDS: FUROsemide 20 mg Tablet PO (08:22)
[2024-05-31] MEDS: apixaban 5 mg Tablet PO (08:22)
[2024-05-31] MEDS: insulin lispro 100 unit/1 mL SUBCUT (08:23)
[2024-05-31 09:42] VITALS: PULSE 76; RESP 17; O2SAT 92
[2024-05-31 10:37] LABS: Glucose Point of Care 129 mg/dL (70-110)
[2024-05-31 11:00] VITALS: BP 122/67; PULSE 84; RESP 18; TEMP 36.3; O2SAT 92
--- NOTE | 2024-05-31 11:03 | P.DS_ITS ---
Discharge Providers Date of Admission: 05/30/24 03:40 Date of Discharge: May 31, 2024 Attending Provider at Admission: Juan J Kaplan MD Attending Provider at Discharge: Paty Bauer MD Primary Care Provider: Sulema Barraza APRN Diagnoses at Discharge Discharge Diagnosis (1) HTN (hypertension): Status: Acute (2) Ischemic cardiomyopathy: Status: Acute (3) Atrial fibrillation: Status: Acute (4) PAD (peripheral artery disease): Status: Acute (5) Anticoagulant long-term use: Status: Acute (6) History of DVT (deep vein thrombosis): Status: Acute (7) Diabetes: Status: Acute (8) Chronic kidney disease (CKD): Status: Acute (9) History of nonmelanoma skin cancer: Status: Acute (10) Osteoarthritis, hip, bilateral: Status: Acute (11) Peripheral neuropathy: Status: Acute (12) COPD (chronic obstructive pulmonary disease): Status: Acute (13) Sleep apnea: Status: Acute (14) Failure to thrive: Status: Acute Reason for Visit Reason for Visit: fall Hospital Course Hospital Course Edvika Kline is a 78 year old male with history of diabetes, DVT, chronic LE edema, suspected venous insufficiency, anticoagulation, hypertension, COPD, uses oxygen concentrator, active smoker, moved with his daughter January 2024, not been able to walk for over a year, has a chronic indwelling wade catheter reportedly for the past 6 months, followed with [place] [facility], Now more recently with bowel incontinence secondary to significant muscle weakness and diabetes presented for not been able to take care of himself. He states he recently got electric scooter from [place] and a walker with a platform however he is not able to take care of himself independently and relies on his daughter for daily activities. His family is unable to care for him. States that his daughter has refused to care for him and he is unable to live by himself due to dependence for all ADLs. He was admitted to the hospital for appropriate disposition planning. He has longstanding B/l LE weakenss, without any new concerns per the patient. He has a new diagnosis of diabetes mellitus based on A1c of 8.1 on current admission, will start Jardiance at discharge. f/up recommended with PCP in the next 7-10 days. Physical Exam Narrative: General: No acute distress, AO x3 HEENT: PERRLA, pupils bilaterally equal and reactive, pallors not present Chest: Normal vesicular breath sounds, no added sounds, equal good air entry bilaterally CVS: S1-S2 regular, no murmurs, no tachycardia, no gallops, no rubs Abdomen: Soft, nontender, no organomegaly, bowel sounds present Neuro: B/L LE weakness, left worse than right, long standing. B/L feet and ankle edema, patient states at baseline likely related to venous insufficiency. Urinary Catheter Management: Wade: Cath Placed During This Visit: yes Reason for Continuing Indwelling Catheter: Chronic Indwelling Urinary Catheter on Admission Urinary Catheter Date of Insertion: 05/23/24 Discharge Data Studies Completed and Pending Laboratory Results WBC 10.48 10^3/uL (3.29-11.43) 05/30/24 04:45 RBC 4.50 10^6/uL (3.85-5.65) 05/30/24 04:45 Hgb 12.00 g/dL (11.27-16.99) 05/30/24 04:45 Hct 38.4 % (37-53) 05/30/24 04:45 MCV 85.3 fl (82-101) 05/30/24 04:45 MCH 26.7 pg (27-33) L 05/30/24 04:45 MCHC 31.3 g/dL (30-55) 05/30/24 04:45 RDW 17.0 % (12.1-15.1) H 05/30/24 04:45 Plt Count 241 10^3/cmm (157-399) 05/30/24 04:45 MPV 9.5 fL (7.4-10.4) 05/30/24 04:45 Neut % (Auto) 65.1 % 05/30/24 04:45 Lymph % (Auto) 15.5 % 05/30/24 04:45 [place] % (Auto) 9.4 % 05/30/24 04:45 Eos % (Auto) 9.0 % 05/30/24 04:45 Baso % (Auto) 0.7 % 05/30/24 04:45 Neut # (Auto) 6.83 10^3/uL (1.8-7.7) 05/30/24 04:45 Lymph # (Auto) 1.6 10^3/uL (0.8-4.8) 05/30/24 04:45 [place] # (Auto) 1.0 10^3/uL (0.2-0.9) H 05/30/24 04:45 Eos # (Auto) 0.9 10^3/uL (0.0-0.8) H 05/30/24 04:45 Baso # (Auto) 0.1 10^3/uL (0.0-0.1) 05/30/24 04:45 Nucleated RBC % (auto) 0 % 05/30/24 04:45 Nucleated RBCs # 0.0 /100WBC 05/30/24 04:45 D-Dimer 2.55 ug/mLFEU (0-0.59) H 05/30/24 04:45 Sodium 144 mmol/L (136-145) 05/31/24 04:45 Potassium 3.4 mmol/L (3.5-5.1) L 05/31/24 04:45 Chloride 107 mmol/L (98-107) 05/31/24 04:45 Carbon Dioxide 24 mmol/L (22-29) 05/31/24 04:45 Anion Gap 16.4 (5-19) 05/31/24 04:45 BUN 50 mg/dL (8-23) H 05/31/24 04:45 Creatinine 1.6 mg/dL (0.7-1.2) H 05/31/24 04:45 GFR Calculation Not Reportable 05/31/24 04:45 Glucose 170 mg/dL (65-115) H 05/31/24 04:45 POC Glucose 129 mg/dL (70-110) H 05/31/24 10:31 Estimat Average Glucose 186 05/30/24 04:45 Hemoglobin A1c 8.1 % (4.0-6.0) H 05/30/24 04:45 Calculated Osmolality 315 mOsm/kg (285-295) H 05/31/24 04:45 Calcium 9.5 mg/dL (8.5-10.5) 05/31/24 04:45 Phosphorus 3.7 mg/dL (2.5-4.5) 05/30/24 04:45 Magnesium 2.0 mg/dL (1.7-2.3) 05/30/24 04:45 Total Bilirubin 0.3 mg/dL (0.15-1.2) 05/31/24 04:45 AST 10 U/L (0-40) 05/31/24 04:45 ALT < 5 U/L (0-41) 05/31/24 04:45 Alkaline Phosphatase 111 U/L (40-130) 05/31/24 04:45 NT-Pro-B Natriuret Pep 271 pg/mL (0-450) 05/30/24 04:45 Total Protein 6.9 g/dL (6.6-8.7) 05/31/24 04:45 Albumin 3.3 g/dL (3.5-5.2) L 05/31/24 04:45 Globulin 3.6 g/dL (1.3-4.6) 05/31/24 04:45 Vitamin B12 648 pg/mL (232-1245) 05/30/24 04:45 Procalcitonin 0.11 ng/mL (0-0.5) 05/30/24 04:45 TSH 0.29 uIU/mL (0.27-4.20) 05/30/24 04:45 Urine Opiates Screen Negative ng/mL (Negative) 05/30/24 04:00 Ur Barbiturates Screen Negative ng/mL (Negative) 05/30/24 04:00 Ur Phencyclidine Scrn Negative ng/mL (Negative) 05/30/24 04:00 Ur Amphetamines Screen Negative ng/mL (Negative) 05/30/24 04:00 U Benzodiazepines Scrn Negative ng/mL (Negative) 05/30/24 04:00 Urine Cocaine Screen Negative ng/mL (Negative) 05/30/24 04:00 U Marijuana (THC) Screen Negative ng/mL (Negative) 05/30/24 04:00 Ethyl Alcohol < 10 mg/dL (0-10) 05/30/24 04:45 SARS-CoV-2 Ag (Rapid) Negative (Negative) 05/30/24 18:00 Vitals Last Vital Signs Temp 97.8 F 05/31/24 07:00 Pulse 76 05/31/24 09:42 Resp 17 05/31/24 09:42 BP 100/62 05/31/24 07:00 Pulse Ox 92 05/31/24 09:42 O2 Del Method Room Air 05/31/24 09:42 Discharge Plan Discharge Patient Disposition: Xfer [facility] Condition: Stable Prescriptions: New Jardiance 10 mg tablet 10 mg PO DAILY 30 Days Qty: 30 0RF Continued terazosin 1 mg capsule 1 mg PO BID melatonin 10 mg capsule 10 mg PO DAILY atorvastatin 20 mg tablet 10 mg PO DAILY furosemide 80 mg tablet 40 mg PO BID acetaminophen 650 mg tablet extended release 650 mg PO Q12H gabapentin 300 mg capsule 300 mg PO BEDTIME Eliquis 5 mg tablet 5 mg PO BID carvedilol 6.25 mg tablet 6.25 mg PO BID Qty: 180 3RF Rx Instructions: with food famotidine 20 mg tablet 20 mg PO BID duloxetine 20 mg capsule,delayed release(DR/EC) 20 mg PO BID lisinopril 2.5 mg tablet 2.5 mg PO DAILY nitroglycerin [Nitrostat] 0.4 mg tablet, sublingual 0.4 mg SUBLINGUAL Q5M PRN (Reason: chest pain) Qty: 25 3RF Rx Instructions: Place one tab under the tongue for chest pain. Use 5 mins apart up to 3 tabs total. hydrocodone-acetaminophen 5-325 mg tablet 1 - 2 tab PO .Q4-6H PRN (Reason: pain) 7 Days Qty: 40 0RF aspirin [Niall Low Dose Aspirin] 81 mg Tablet,Delayed Release (Dr/Ec) 81 mg PO DAILY Cbc Gummies 1 gummy PO BEDTIME PRN (Reason: sleep or pain ) cyanocobalamin (vitamin B-12) [Vitamin B-12] 100 mcg Tablet 100 mcg PO DAILY gemfibrozil 600 mg Tablet 600 mg PO BID Rx Instructions: take with meals cholecalciferol (vitamin D3) [Vitamin D3] 25 mcg (1,000 unit) Tablet 25 mcg PO DAILY levothyroxine 125 mcg Tablet 125 mcg PO DAILY naloxone 0.4 mg/mL Solution 0.4 mg SUBCUT Q2M PRN (Reason: overdose) Rx Instructions: NTExceed 10 mg total dose/episode tamsulosin 0.4 mg Capsule 0.4 mg PO DAILY Rx Instructions: 30 minutes afte the same meal daily olopatadine 0.2 % Drops 1 drp OPHTHALMIC (EYE) DAILY Breztri Aerosphere 160-9-4.8 mcg/actuation Hfa Aerosol Inhaler 2 inh INHALATION BID Discharge Orders: Discharge Order (Routine); Ordered 05/31/24 Ordered By: Paty Bauer Referrals: Sulema Barraza APRN [Primary Care Provider] - Patient Instructions: Fall Prevention for Older Adults (ED), Pain Management Activity Restrictions/Additional Instructions: Thank you for choosing [facility] for your healthcare needs today. Please realize this is an emergency room and that we are providing you with a medical screening exam and this may not be complete and all inclusive of all the testing and or work up that you may need to determine your ailment or severity of your illness. You have been screened and evaluated and felt safe for discharge. Health cond itions do change or evolve sometimes and as such it is important that you follow up with your Primary Doctor to be re checked, 3-5 days is a general good time frame for follow up. You are always welcome to return to the ED for re assessment if your symptoms are worsening or you have new concerns Discharge Attestations Time Spent in Discharge Care*: greater than 30 min Quality Metrics Clinical Quality Measures [ No reported AMI, CVA or VTE this stay] Coding Level of Care Code Acute Code for Chg Fwd Diagnoses HTN (hypertension) I10 Ischemic cardiomyopathy I25.5 Atrial fibrillation I48.91 PAD (peripheral artery disease) I73.9 Anticoagulant long-term use Z79.01 History of DVT (deep vein thrombosis) Z86.718 Diabetes E11.9 Chronic kidney disease (CKD) N18.9 History of nonmelanoma skin cancer Z85.828 Osteoarthritis, hip, bilateral M16.0 Peripheral neuropathy G62.9 COPD (chronic obstructive pulmonary disease) J44.9 Sleep apnea G47.30 Failure to thrive
[2024-05-31] MEDS: potassium chloride ER 20 mEq Tablet 40 MEQ PO (12:09)
--- NOTE | 2024-05-31 13:35 | PC.NURSE ---
Spoke to [facility] and they say they do have the medication orders for this patient including the Jardiance.
== END 2024-05-31 13:45 | disposition skilled nursing facility (03) ==
LOC: ER 04:15 → MEDSURG 04:54
PROVIDERS: Admitting Provider Internal Medicine; Emergency Provider Emergency Medicine; PCP Nurse Practitioner Family; Visit Provider Student in an Organized Health Care Education/Training Program
DX: Z75.1 Person awaiting admission to adequate facility elsewhere (principal); R62.7 Adult failure to thrive; I12.9 Hypertensive chronic kidney disease with stage 1 through stage 4 chronic kidney disease, or unspecified chronic kidney disease; E11.22 Type 2 diabetes mellitus with diabetic chronic kidney disease; N18.9 Chronic kidney disease, unspecified; I25.5 Ischemic cardiomyopathy; I48.91 Unspecified atrial fibrillation; I73.9 Peripheral vascular disease, unspecified; Z79.01 Long term (current) use of anticoagulants; Z86.718 Personal history of other venous thrombosis and embolism; Z85.828 Personal history of other malignant neoplasm of skin; M16.0 Bilateral primary osteoarthritis of hip; J44.9 Chronic obstructive pulmonary disease, unspecified; G47.30 Sleep apnea, unspecified; R33.9 Retention of urine, unspecified; I25.10 Atherosclerotic heart disease of native coronary artery without angina pectoris; E03.9 Hypothyroidism, unspecified; Z83.3 Family history of diabetes mellitus; Z84.89 Family history of other specified conditions; Z82.49 Family history of ischemic heart disease and other diseases of the circulatory system; Z68.27 Body mass index [BMI] 27.0-27.9, adult; Z79.82 Long term (current) use of aspirin; Z99.81 Dependence on supplemental oxygen; Z86.711 Personal history of pulmonary embolism; F17.210 Nicotine dependence, cigarettes, uncomplicated; Z66 Do not resuscitate
CPT/HCPCS: 36415; 36416; 51702; 80048; 80053; 80306; 80307; 82607; 82962; 83036; 83735; 83880; 84100; 84145; 84443; 85025; 85378; 87426; 96372; 97162; 97530; 99285; G0378; J1815; J9999

== ENCOUNTER 2024-06-03 05:25 | Inpatient (IN) | payer OTHER, MEDICARE, SELFPAY ==
[2024-06-03] VITALS (63 sets, daily range): BP systolic 70–141; BP diastolic 38–88; PULSE 60–136; RESP 11–31; TEMP 36.6–36.8; O2SAT 88–100; BMI 23.0
--- NOTE | 2024-06-03 05:34 | ECG_ITS ---
[facility] Pat Name: Ghassan Kline Department: Room: Gender: Male [employer]: : [id number] Requested By: Jayjay Miranda Order Number: [id number] Nicolette MD: Herbie Lagunas M.D. Measurements Intervals [place] Rate: 123 P: 34 AR: 174 QRS: 106 QRSD: 102 T: 93 QT: 410 QTc: 588 Interpretive Statements SINUS TACHYCARDIA PATTERN CONSISTENT WITH PULMONARY DISEASE POSSIBLE RIGHT VENTRICULAR HYPERTROPHY [SOME/ALL OF: PROMINENT R IN V1, LATE TRANSITION, RAD, TEJA, SSS] NONSPECIFIC ST & T-WAVE ABNORMALITY Compared to ECG 11/18/2023 09:39:59 Sinus bradycardia no longer present Myocardial infarct finding no longer present Possible ischemia no longer present T-wave abnormality still present Electronically Signed On 06-03-2024 22:42:00 CDT by Herbie Lagunas M.D. [email or web address]
--- NOTE | 2024-06-03 05:34 | XRR_ITS ---
PROCEDURE INFORMATION: Exam: XR Chest Exam date and time: 06/03/2024 6:14 AM Age: 78 years old Clinical indication: Shortness of breath; Additional info: SOB TECHNIQUE: Imaging protocol: Radiologic exam of the chest. Views: 1 view. COMPARISON: CR XR chest 1V [id number] 05/05/2018 3:55 PM FINDINGS: Lungs: Left lower lobe infiltrate. Lungs are hyperinflated Pleural spaces: Unremarkable. No pleural effusion. No pneumothorax. Heart/Mediastinum: Cardiomegaly. Bones/joints: Unremarkable. XR/XR chest 1V portable [id number] IMPRESSION: Cardiomegaly with left lower lobe infiltrate suggestive of pneumonia
--- NOTE | 2024-06-03 05:42 | CTR_ITS ---
PROCEDURE INFORMATION: Exam: CTA Chest With Contrast Exam date and time: 06/03/2024 6:38 AM Age: 78 years old Clinical indication: Other: Gross hematurai output from wade; Abdominal pain; Localized; Lower; Shortness of breath and other: Tachycardia/hypoxia; Other: N/a; Prior surgery; Surgery date: 6+ months; Surgery type: Cervical fusion. Cabg. Tc; [facility]. Patient found to be very SOB and hypoxic. C/O suprapubic pain. History of chf. ; Additional info: Sob/hematuria TECHNIQUE: Imaging protocol: Computed tomographic angiography of the chest with contrast. Exam focused on the arteries. 3D rendering (Not supervised by radiologist): MIP and/or 3D reconstructed images were created by the technologist. Radiation optimization: All CT scans at this facility use at least one of these dose optimization techniques: automated exposure control; mA and/or kV adjustment per patient size (includes targeted exams where dose is matched to clinical indication); or iterative reconstruction. Contrast material: OMNI 350; Contrast volume: 100 ml; Contrast route: INTRAVENOUS (IV); COMPARISON: CR (CHEST, ) 06/03/2024 6:14 AM RADIATION DOSE METRICS: Total DLP (mGy-cm): 2225.28 FINDINGS: Pulmonary arteries: Normal. No pulmonary emboli. Aorta: Unremarkable. No aortic aneurysm. No aortic dissection. Lungs: Severe underlying emphysema. Left lower lobe infiltrate. Pleural spaces: Partially calcified pleural plaques. Scattered calcified granulomas. Heart: Unremarkable. No cardiomegaly. No pericardial effusion. Coronary arteries: Coronary artery calcification. Lymph nodes: Unremarkable. No enlarged lymph nodes. Bones/joints: Healed rib fracture deformities. Soft tissues: Unremarkable. COMMENTS: The presence of pulmonary emphysema on CT is an independent risk factor for lung cancer. In the absence of a history or active diagnosis of lung cancer, it is recommended that this patient with emphysema be evaluated for enrollment in a low dose CT lung cancer screening program. PROCEDURE INFORMATION: Exam: CT Abdomen And Pelvis With Contrast Exam date and time: 06/03/2024 6:38 AM Age: 78 years old Clinical indication: Other: Gross hematurai output from wade; Abdominal pain; Localized; Lower; Shortness of breath and other: Tachycardia/hypoxia; Other: N/a; Prior surgery; Surgery date: 6+ months; Surgery type: Cervical fusion. Cabg. Tc; EMS arrival from [facility] ([place], [place]) home for gross hematuria. Patient found to be very SOB and hypoxic. C/O suprapubic pain. History of chf. ; Additional info: Sob/hematuria TECHNIQUE: Imaging protocol: Computed tomography of the abdomen and pelvis with contrast. Radiation optimization: All CT scans at this facility use at least one of these dose optimization techniques: automated exposure control; mA and/or kV adjustment per patient size (includes targeted exams where dose is matched to clinical indication); or iterative reconstruction. Contrast material: OMNI 350; Contrast volume: 100 ml; Contrast route: INTRAVENOUS (IV); COMPARISON: CT abdomen wo/w con [id number] 05/09/2024 1:41 PM RADIATION DOSE METRICS: Total DLP (mGy-cm): 2225.28 FINDINGS: Tubes, catheters and devices: Betina filter in place. Liver: Normal. No mass. Gallbladder and biliary ducts: Cholelithiasis Pancreas: Normal. No ductal dilation. Spleen: Normal. No splenomegaly. Adrenal glands: 4.4 cm left adrenal mass. 19 mm right adrenal nodule. Kidneys and ureters: Nonobstructing calculus in the inferior pole right kidney. 10 mm exophytic cysts in the right and left kidney. Stomach and bowel: Severe sigmoid colon diverticulosis with a short segment of wall thickening/inflammatory change. Large amount of stool within the distal sigmoid colon and rectum. Appendix: No evidence of appendicitis. Intraperitoneal space: Unremarkable. No free air. No significant fluid collection. Vasculature: Unremarkable. No abdominal aortic aneurysm. Lymph nodes: Unremarkable. No enlarged lymph nodes. Urinary bladder: Wade catheter within the urinary bladder. Hemorrhage and/or soft tissue density in the urinary bladder. Lack of contrast limits evaluation. Reproductive: Unremarkable as visualized. Bones/joints: Postop surgical change in the left hip joint. Soft tissues: Unremarkable. CT/CT angio chest w abd pel w con IMPRESSION: 1. Left lower lobe infiltrate. Severe underlying emphysema. Partially calcified pleural plaques. Coronary artery calcification. 2. Findings suggestive of healed granulomatous disease. IMPRESSION: 1. No hydronephrosis. Hemorrhage and/or soft tissue density within urinary bladder. Lack of contrast limits evaluation. 2. Large amount of stool in the rectum. Severe sigmoid colon diverticulosis with a short segment of wall thickening and mild inflammatory change. Colitis not excluded. 3. Cholelithiasis without ductal dilatation. 4. 4.4 cm left adrenal mass. 1.8 cm right adrenal nodule. These should be further evaluated with multiphasic MR imaging to exclude neoplasm. COMMENTS: Consistent with the [employer]'s Incidental Findings Committee white paper (J Am Eduardo Radiol 2018): Any incidental renal lesion less than 1 cm or classified as too small to characterize, or any incidental cystic renal lesion characterized as simple-appearing, is likely benign. No follow-up imaging is recommended for these lesions per consensus recommendations based on imaging criteria.
--- NOTE | 2024-06-03 05:42 | CTR_ITS ---
PROCEDURE INFORMATION: Exam: CT Head Without Contrast Exam date and time: 06/03/2024 6:35 AM Age: 78 years old Clinical indication: Stroke-like symptoms; Altered mental status/memory loss; Additional info: AMS TECHNIQUE: Imaging protocol: Computed tomography of the head without contrast. Radiation optimization: All CT scans at this facility use at least one of these dose optimization techniques: automated exposure control; mA and/or kV adjustment per patient size (includes targeted exams where dose is matched to clinical indication); or iterative reconstruction. Other technique: STROKE PROTOCOL was implemented. COMPARISON: CT sinus wo con* [id number] 05/09/2024 1:38 PM RADIATION DOSE METRICS: Total DLP (mGy-cm): 841.58 FINDINGS: Brain: Normal. No hemorrhage. Unremarkable white matter. No mass effect. Cerebral ventricles: No ventriculomegaly. Paranasal sinuses: Right sphenoid sinus disease Mastoid air cells: Visualized mastoid air cells are well aerated. Bones: Unremarkable. No acute fracture. Soft tissues: Unremarkable. CT/CT head wo con* [id number] IMPRESSION: 1. No acute intracranial abnormality is appreciated 2. Right sphenoid sinus disease ASSESSMENT: ASPECTS ([place] Stroke Program Early CT Score) is 10.
--- NOTE | 2024-06-03 05:45 | W.ED.MALEGU ---
HPI - Male Genitourinary General: Chief complaint: Urogenital-Male Stated complaint: BLOODY URINE Time Seen by Provider: 06/03/24 05:28 Source: EMS Mode of arrival: EMS Limitations: altered mental status History of Present Illness: 78-year-old male is here from care home. Sent here as he is having hematuria in his catheter. Patient here is quite confused he is not able to answer any questions his baseline is supposedly awake and alert and able to answer questions appropriately. Patient does not wear oxygen at the care home per the care home he is requiring 4 L here he is also in A-fib with RVR. Related Data Home Medications ?Medication ?Instructions ?Recorded ?Confirmed atorvastatin 20 mg tablet 10 mg PO DAILY 05/07/19 06/03/24 melatonin 10 mg capsule 10 mg PO DAILY 05/07/19 06/03/24 terazosin 1 mg capsule 1 mg PO BID 05/07/19 06/03/24 acetaminophen 650 mg 650 mg PO Q12H 02/21/20 06/03/24 tablet,extended release apixaban 5 mg tablet (Eliquis) 5 mg PO BID 04/19/24 06/03/24 duloxetine 20 mg capsule,delayed 20 mg PO BID 04/19/24 06/03/24 release famotidine 20 mg tablet 20 mg PO BID 04/19/24 06/03/24 furosemide 80 mg tablet 40 mg PO BID 04/19/24 06/03/24 gabapentin 300 mg capsule 300 mg PO BEDTIME 04/19/24 06/03/24 lisinopril 2.5 mg tablet 2.5 mg PO DAILY 04/19/24 06/03/24 Cbc Gummies 1 gummy PO BEDTIME PRN sleep or 05/30/24 06/03/24 pain aspirin 81 mg tablet,delayed 81 mg PO DAILY 05/30/24 06/03/24 release (Niall Low Dose Aspirin) budesonide 160 mcg-glycopyr 9 2 inh inhalation BID 05/30/24 06/03/24 mcg-formot 4.8 mcg/actuation HFA inhaler (Breztri Aerosphere) cholecalciferol (vitamin D3) 25 25 mcg PO DAILY 05/30/24 06/03/24 mcg (1,000 unit) tablet (Vitamin D3) cyanocobalamin (vitamin B-12) 100 100 mcg PO DAILY 05/30/24 06/03/24 mcg tablet (Vitamin B-12) gemfibrozil 600 mg tablet 600 mg PO BID high triglycerides 05/30/24 06/03/24 levothyroxine 125 mcg tablet 125 mcg PO DAILY 05/30/24 06/03/24 naloxone 0.4 mg/mL injection 0.4 mg SUBCUT Q2M PRN overdose 05/30/24 06/03/24 solution olopatadine 0.2 % eye drops 1 drp ophthalmic (eye) DAILY 05/30/24 06/03/24 tamsulosin 0.4 mg capsule 0.4 mg PO DAILY 05/30/24 06/03/24 Previous Rx's ?Medication ?Instructions ?Recorded nitroglycerin 0.4 mg sublingual 0.4 mg sublingual Q5M PRN chest 08/27/19 tablet (Nitrostat) pain #25 tabs hydrocodone 5 mg-acetaminophen 325 1 - 2 tab PO .Q4-6H PRN pain 7 02/13/24 mg tablet days #40 tabs carvedilol 6.25 mg tablet 6.25 mg PO BID #180 tabs 04/19/24 empagliflozin 10 mg tablet 10 mg PO DAILY 30 days #30 tabs 05/31/24 (Jardiance) Allergies Allergy/AdvReac Type Severity Reaction Status Date / Time amiodarone Allergy Severe ALGY-Difficulty Verified 05/30/24 00:38 Breathing adhesive tape Allergy rips skin Verified 05/30/24 00:38 Sulfa (Sulfonamide Allergy Unknown Verified 05/30/24 00:38 Antibiotics) gabapentin AdvReac Mild INCREASED Verified 05/30/24 00:38 BURNING IN FEET Review of Systems General: Reports: ROS unobtainable due to mental status [facility] ED PFSH: Medical History Facet arthropathy, cervical Encounter for long-term opiate analgesic use History of nonmelanoma skin cancer Spinal stenosis of cervical region Cervical radiculitis Amiodarone toxicity Sleep apnea Ischemic cardiomyopathy Tobacco abuse SVT (supraventricular tachycardia) History of pulmonary embolism History of DVT (deep vein thrombosis) Chronic kidney disease (CKD) PAD (peripheral artery disease) Diabetes HTN (hypertension) COPD (chronic obstructive pulmonary disease) ASHD (arteriosclerotic heart disease) CHF (congestive heart failure) Hypothyroidism Anticoagulant long-term use Atrial fibrillation Surgical History Hx of neck surgery 12/13/19 Neftali-removed 2 discs and placed 2 plastic discs S/P CABG (coronary artery bypass graft) H/O cardiac radiofrequency ablation Family History Grandmother Cancer Father Diabetes Mother Diabetes Brother Diabetes Hypertension Sister Diabetes Denies family history of Anesthesia complication Bleeding disorder Social History Smoking and tobacco/nicotine status: current every day tobacco/nicotine user cigarettes Packs smoked per day: 1 Alcohol intake: former Substance/Drug Use: never Caregiver/support person: Yes Household members: spouse Marital status: service: Yes branch: [employer] Physical Exam Const: COMMON NORMALS: negative for patient oriented x3 EXAM LIMITATIONS: altered mental status GENERAL APPEARANCE: ill appearing HENMT: COMMON NORMALS: normocephalic and atraumatic HEAD & SCALP: normocephalic and atraumatic Eye: COMMON NORMALS: conjunctivae normal CONJUNCTIVA: Yes conjunctivae normal Neck/C-Spine: COMMON NORMALS: full ROM and supple Chest: COMMONS NORMALS: normal inspection of the chest Resp: COMMON NORMALS: No retractions EFFORT & INSPECTION: Yes respiratory distress Cardio: COMMON NORMALS: No murmurs present (Cardio) RATE: tachycardic RHYTHM: abnormal rhythm irregularly irregular GI: COMMON NORMALS: Soft to palpation, non-tender and no masses PALPATION: Yes Soft to palpation OTHER: Bladder is distended Bingham in place with alice red blood in the catheter bag Extremity: COMMON NORMALS: normal to inspection and full ROM Neuro: COMMON NORMALS: moves all extremities and no focal motor deficits; negative for patient oriented x3 Psych: COMMON NORMALS: cooperative; negative for mental status grossly normal Skin: COMMON NORMALS: no rashes or lesions noted and no wounds GENERAL SKIN EXAM: no rashes or lesions noted Procedures Central Line Placement Right IJ: Time Out Performed: Yes Patient Placed on Monitor/Pulse Ox: Yes MD Prep: mask, gown and gloves Central Line Prep: Chlorhexidine scrub Local Anesthetic: lidocaine 1% Amount of anesthesia used (mL): 3 Ultrasound Used for Placement: Yes Central Line Lumen Inserted: triple Post Procedure: sutured in place, good blood return and sterile dressing applied Post Procedure X-Ray: tip of catheter in good position and no pneumothorax seen Patient Tolerated Procedure: well Complications: none Course Vital Signs: Vital signs: Vital Signs Temperature 98.2 F 06/03/24 05:30 Pulse Rate 100 06/03/24 08:16 Respiratory Rate 18 06/03/24 06:28 Blood Pressure 132/68 06/03/24 06:28 Pulse Oximetry 99 06/03/24 08:16 Oxygen Delivery Me thod Oxymask 06/03/24 06:28 Oxygen Flow Rate 10 06/03/24 06:28 Fraction of Inspir ed Oxygen 70 06/03/24 08:16 MDM - Male Medical Decision Making Patient presents with altered mental status and with hematuria and hypoxia. He is requiring BiPAP at this time does have a pneumonia is in septic shock did give him sepsis bolus along with antibiotics and did start him on Levophed with a central line. Blood pressure here is improved did flush his Bingham with a larger Bingham is now having clear output. CT abdomen showed no acute findings talk to hospitalist will admit Medical Records I reviewed the patient's medical records. Lab Data I reviewed the patient's lab results. 06/03/24 05:50 06/03/24 05:50 Radiology Impressions Chest/Abdomen/Pelvis CT 06/03/24 05:42 IMPRESSION: 1. Left lower lobe infiltrate. Severe underlying emphysema. Partially calcified pleural plaques. Coronary artery calcification. 2. Findings suggestive of healed granulomatous disease. IMPRESSION: 1. No hydronephrosis. Hemorrhage and/or soft tissue density within urinary bladder. Lack of contrast limits evaluation. 2. Large amount of stool in the rectum. Severe sigmoid colon diverticulosis with a short segment of wall thickening and mild inflammatory change. Colitis not excluded. 3. Cholelithiasis without ductal dilatation. 4. 4.4 cm left adrenal mass. 1.8 cm right adrenal nodule. These should be further evaluated with multiphasic MR imaging to exclude neoplasm. COMMENTS: Consistent with the [employer]'s Incidental Findings Committee white paper (J Am Eduardo Radiol 2018): Any incidental renal lesion less than 1 cm or classified as too small to characterize, or any incidental cystic renal lesion characterized as simple-appearing, is likely benign. No follow-up imaging is recommended for these lesions per consensus recommendations based on imaging criteria. Head CT 06/03/24 05:42 IMPRESSION: 1. No acute intracranial abnormality is appreciated 2. Right sphenoid sinus disease ASSESSMENT: ASPECTS ([place] Stroke Program Early CT Score) is 10. ADDENDUM: 06/03/24 0659 THIS REPORT CONTAINS FINDINGS THAT MAY BE CRITICAL TO PATIENT CARE. The findings were verbally communicated via telephone conference with STACY SERNA at 6:57 AM CDT on 06/03/2024. The findings were acknowledged and understood. Chest X-Ray 06/03/24 07:43 IMPRESSION: 1. Right IJ central venous catheter tip in the superior vena cava. 2. Left lower lobe infiltrate Laboratory Results WBC 1.27 10^3/uL (3.29-11.43) L 06/03/24 05:50 RBC 4.83 10^6/uL (3.85-5.65) 06/03/24 05:50 Hgb 12.90 g/dL (11.27-16.99) 06/03/24 05:50 Hct 41.6 % (37-53) 06/03/24 05:50 MCV 86.1 fl (82-101) 06/03/24 05:50 MCH 26.7 pg (27-33) L 06/03/24 05:50 MCHC 31.0 g/dL (30-55) 06/03/24 05:50 RDW 17.0 % (12.1-15.1) H 06/03/24 05:50 Plt Count 179 10^3/cmm (157-399) 06/03/24 05:50 MPV 9.4 fL (7.4-10.4) 06/03/24 05:50 Neut % (Auto) 88.1 % 06/03/24 05:50 Lymph % (Auto) 7.1 % 06/03/24 05:50 [place] % (Auto) 1.6 % 06/03/24 05:50 Eos % (Auto) 1.6 % 06/03/24 05:50 Baso % (Auto) 0.8 % 06/03/24 05:50 Neut # (Auto) 1.12 10^3/uL (1.8-7.7) L 06/03/24 05:50 Lymph # (Auto) 0.1 10^3/uL (0.8-4.8) L 06/03/24 05:50 [place] # (Auto) 0.0 10^3/uL (0.2-0.9) L 06/03/24 05:50 Eos # (Auto) 0.0 10^3/uL (0.0-0.8) 06/03/24 05:50 Baso # (Auto) 0.0 10^3/uL (0.0-0.1) 06/03/24 05:50 Nucleated RBC % (auto) 0 % 06/03/24 05:50 Nucleated RBCs # 0.0 /100WBC 06/03/24 05:50 PT 15.50 SECONDS (12.1-14.9) H 06/03/24 05:50 INR 1.15 (0.8-1.2) 06/03/24 05:50 Specimen Type Arterial 06/03/24 06:21 Sample Site Brachial, left 06/03/24 06:21 ABG pH 7.43 (7.35-7.45) 06/03/24 06:21 ABG pCO2 33.3 mmHg (35-45) L 06/03/24 06:21 ABG pO2 59.9 mmHg (80.0-100.0) L 06/03/24 06:21 ABG HCO3 22.0 mmol/L (22-26) 06/03/24 06:21 ABG Base Excess -1.7 mmol/L (-2.0-2.0) 06/03/24 06:21 Rory Test N/a 06/03/24 06:21 Hematocrit 38.0 % (42-52) L 06/03/24 06:21 O2 Delivery Device Oxy mask 06/03/24 06:21 O2 Liters/Min 10.0 % 06/03/24 06:21 Airborne Sensor Specialist ID [id number] 06/03/24 06:21 Sodium 141 mmol/L (136-145) 06/03/24 05:50 Potassium 3.5 mmol/L (3.5-5.1) 06/03/24 05:50 Chloride 100 mmol/L (98-107) 06/03/24 05:50 Carbon Dioxide 22 mmol/L (22-29) 06/03/24 05:50 Anion Gap 22.5 (5-19) H 06/03/24 05:50 BUN 43 mg/dL (8-23) H 06/03/24 05:50 Creatinine 1.2 mg/dL (0.7-1.2) 06/03/24 05:50 GFR Calculation Not Reportable 06/03/24 05:50 Glucose 171 mg/dL (65-115) H 06/03/24 05:50 Calculated Osmolality 307 mOsm/kg (285-295) H 06/03/24 05:50 Lactic Acid 5.0 mmol/L (0.5-2.2) H* 06/03/24 05:50 Calcium 9.4 mg/dL (8.5-10.5) 06/03/24 05:50 Total Bilirubin 1.0 mg/dL (0.15-1.2) 06/03/24 05:50 AST 16 U/L (0-40) 06/03/24 05:50 ALT 6 U/L (0-41) 06/03/24 05:50 Alkaline Phosphatase 123 U/L (40-130) 06/03/24 05:50 Total Protein 8.0 g/dL (6.6-8.7) 06/03/24 05:50 Albumin 3.9 g/dL (3.5-5.2) 06/03/24 05:50 Globulin 4.1 g/dL (1.3-4.6) 06/03/24 05:50 Influenza A (PCR) Negative (Negative) 06/03/24 06:13 Influenza Type B (PCR) Negative (Negative) 06/03/24 06:13 RSV (PCR) Negative (Negative) 06/03/24 06:13 SARS-CoV-2 (PCR) Negative (Negative) 06/03/24 06:13 All radiology interpretation(s) finalized by discharge Critical Care Time Critical Care Time: Critical Care Time: Yes Total Critical Care Time: 50 Attestation: The high probability of a clinically significant, sudden or life threatening deterioration of the patient's resp system(s) required my full and direct attention, intervention and personal management. The critical care time is as shown. 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
[2024-06-03] MEDS: dilTIAZem 5 mg/mL SDV 5 mL 10 MG IVP (05:56)
[2024-06-03 05:57] LABS: Basophils % 0.8 %; Eosinophils % 1.6 %; Hematocrit 41.6 % (37-53); Lymphocytes # 0.1 10^3/uL (0.8-4.8); Lymphocytes % 7.1 %; Mean Corpuscular Hemoglobin 26.7 pg (27-33); Mean Corpuscular Volume 86.1 fl (82-101); Mean Platelet Volume 9.4 fL (7.4-10.4); Monocytes % 1.6 %; Neutrophils # 1.12 10^3/uL (1.8-7.7); Neutrophils % 88.1 %; Nucleated Red Blood Cells % 0 %; Platelet Count 179 10^3/cmm (157-399); Red Blood Count 4.83 10^6/uL (3.85-5.65); White Blood Count 1.27 10^3/uL (3.29-11.43)
[2024-06-03] MEDS: iohexol 350 mg/mL 500 mL Btl (per mL) IV (06:08)
[2024-06-03 06:14] LABS: INR 1.15 (0.8-1.2)
[2024-06-03 06:23] LABS: Alanine Aminotransferase 6 U/L (0-41); Albumin Level 3.9 g/dL (3.5-5.2); Alkaline Phosphatase 123 U/L (40-130); Anion Gap 22.5 (5-19); Aspartate Amino Transferase 16 U/L (0-40); Blood Urea Nitrogen 43 mg/dL (8-23); Calcium 9.4 mg/dL (8.5-10.5); Carbon Dioxide 22 mmol/L (22-29); Chloride 100 mmol/L (98-107); Globulin 4.1 g/dL (1.3-4.6); Glucose 171 mg/dL (65-115); Osmolality Calculated 307 mOsm/kg (285-295); Potassium 3.5 mmol/L (3.5-5.1); Sodium 141 mmol/L (136-145)
[2024-06-03 06:32] LABS: ABG PCO2 33.3 mmHg (35-45); ABG PH Result 7.43 (7.35-7.45); Base Excess ABG -1.7 mmol/L (-2.0-2.0); Blood Gas Operator Identificat AMH; Blood Gas Sample Site Brachial, left; Blood Gas Sample Type Arterial; Oxygen Device OXY MASK; PO2 ABG 59.9 mmHg (80.0-100.0)
[2024-06-03 06:53] LABS: Influenza A NEGATIVE (Negative); Influenza B NEGATIVE (Negative); Respiratory Syncytial Virus Ce NEGATIVE (Negative); SARS-CoV-2 PCR NEGATIVE (Negative)
--- NOTE | 2024-06-03 07:26 | PC.PHAR ---
patient was just discharged from the floor 3 days ago, discharge list is updated by doctor. compared that to med list
--- NOTE | 2024-06-03 07:43 | XRR_ITS ---
PROCEDURE INFORMATION: Exam: XR Chest Exam date and time: 06/03/2024 7:45 AM Age: 78 years old Clinical indication: Device placement; Other: Central line TECHNIQUE: Imaging protocol: Radiologic exam of the chest. Views: 1 view. COMPARISON: CT angio chest w abd pel w con 06/03/2024 6:38 AM FINDINGS: Tubes, catheters and devices: Right IJ central venous catheter tip in the superior vena cava. Lungs: Left lower lobe infiltrate. Pleural spaces: Unremarkable. No pleural effusion. No pneumothorax. Heart/Mediastinum: Unremarkable. No cardiomegaly. Bones/joints: Unremarkable. Soft tissues: There appears to be skin folds in the upper thorax XR/XR chest 1V portable [id number] IMPRESSION: 1. Right IJ central venous catheter tip in the superior vena cava. 2. Left lower lobe infiltrate
[2024-06-03] MEDS: sodium chloride 0.9% 1,000 ML 999 ML IV ×2 (07:45)
[2024-06-03] MEDS: sodium chloride 0.9% 500 ML 999 ML IV (07:45)
[2024-06-03] MEDS: piperacillin-tazobactam 3.375 GM in sodium chloride 0.9% (plus) 50 ML IV ×3 (07:50→22:01)
[2024-06-03] MEDS: VANCOMYCIN ADD-Vantage 1,000 MG in 0.9% NaCl ADD-Vantage 250 ML 250 MG IV (08:00)
[2024-06-03 08:12] LABS: Reflex Lactate Order REFLEX LACTIC ORDERD
--- NOTE | 2024-06-03 08:16 | PC.NURSE ---
this RN emptied 1900ml from pts CBI.
[2024-06-03] MEDS: norepinephrine 4 MG/250 ML BAG 30 MG IV (08:24)
--- NOTE | 2024-06-03 09:00 | USCV_ITS ---
Ghassan Kline Age: 78 Gender: M : 1945 Exam Date: 06/03/2024 13:21 Ordering Phys: Kevin Garcia MD Technologist: Eliud Davenport Exam Location: [facility] [place] Indication: shock BP: 126 / 76 HR: 76 Rhythm: Sinus Technical Quality: Adequate MEASUREMENTS (Male / Female) Normal Values 2D ECHO LV Diastolic Diameter PLAX 4.2 cm 4.2 - 5.9 / 3.9 - 5.3 cm IVS Diastolic Thickness 1.0 cm 0.6 - 1.0 / 0.6 - 0.9 cm IVS Systolic Thickness 1.6 cm LVPW Diastolic Thickness 1.4 cm 0.6 - 1.0 / 0.6 - 0.9 cm LVPW Systolic Thickness 1.5 cm LVOT Diameter 2.1 cm LV Ejection Fraction 2D Teich 67.4 % LV Ejection Fraction MOD 4C 65.8 % LV Ejection Fraction MOD 2C 65.1 % LV Ejection Fraction 2C AL 65.7 % LA Diameter 4.3 cm RA Systolic Volume 4C AL 74.8 ml RA Systolic Volume 4C MOD 70.9 ml LA Sys Volume AL 89.4 cm cubed LA Sys Volume Index AL 45.9 cm cubed/m squared Aorta at Sinotubular Diameter 3.1 cm M-MODE LA Ao Ratio MM 1.6 AV Cusp Separation MM 2.3 cm DOPPLER AV Peak Velocity 127.3 cm/s LVOT Peak Velocity 98.0 cm/s AV Area Cont Eq vti 3.0 cm squared AV Area Cont Eq pk 2.6 cm squared MV Peak Velocity 91.0 cm/s MV Area PHT 7.2 cm squared TV Peak Velocity 295.8 cm/s TR Peak Velocity 380.0 cm/s TR Peak Gradient 57.8 mmHg TR Mean Velocity 279.0 cm/s TR Mean Gradient 35.5 mmHg TR Velocity Time Integral 86.6 cm PV Peak Velocity 102.3 cm/s RV Ejection Time 0.2 s FINDINGS Left Ventricle Normal left ventricular size and systolic function, EF 65%.. No regional wall motion abnormalities. Right Ventricle Normal right ventricular size and systolic function. Right Atrium Normal right atrial size. Left Atrium Moderately increased left atrial size. Mitral Valve No gross abnormalities no Aortic Valve Thickened aortic valve. Tricuspid Valve Mild tricuspid valve regurgitation. Pulmonic Valve Trace to mild pulmonary valve regurgitation. Pericardium No thickening/calcification of the pericardium. Aorta Normal aortic annulus size. IVC Inferior vena cava not visualized. CONCLUSIONS Normal left ventricular size and systolic function, EF 65%.. No regional wall motion abnormalities. Moderately increased left atrial size. Thickened aortic valve. Mild tricuspid valve regurgitation. Estimated pulmonary artery peak systolic pressure 39 mm ofHg There is no pericardial effusion. Technically somewhat difficult study because of the poor ultrasonic window Dr Herbie Lagunas MD [facility] (Electronically Signed) Final Date: 03 June 2024 22:38 S
[2024-06-03 09:21] LABS: Iron 29 ug/dL (59-158); Percent Saturation 10.8 % (20-50); Total Iron Binding Capacity 268 mcg/dl; Unsaturated Iron Binding 239 ug/dL (112-347)
[2024-06-03 09:27] LABS: Lactic Acid level (Lactate) 3.9 mmol/L (0.5-2.2)
[2024-06-03 09:29] LABS: Procalcitonin 22.12 ng/mL (0-0.5)
[2024-06-03] MEDS: vasopressin 40 UNIT/100 ML PREMIX 4.5 UNIT IV ×2 (09:44→16:46)
[2024-06-03] MEDS: budesonide 0.5 mg/2 mL Neb INHALATION ×2 (10:09→19:43)
--- NOTE | 2024-06-03 10:24 | PC.NURSE ---
Dr. Garcia gave this nurse a verbal order to increase vasopressin to 0.04 unit/min. Dr. Garcia stated he would change the drip order vasopressin to titratable drip order.
--- NOTE | 2024-06-03 10:28 | PM.HP ---
Providers/Chief Complaint Admitting Physician: Kevin Garcia MD Primary Care Provider: Sulema Barraza APRN Chief Complaint: BLOODY URINE History of Present Illness Ghassan Kline is a 78 year old male with past medical history of CAD post CABG, hypertension, COPD, CKD, DVT, A-fib, SVT, post ablation, chronic indwelling Bingham catheter, failure to thrive who was recently discharged to SNF was sent into the ER today with concerns for hematuria which as per the nursing staff from the SNF developed overnight. As they needed to flush the catheter multiple times due to blood clots he was sent into the ER. In the ER he was found to be hypoxic and was placed on BiPAP. His heart rate was seen to be in 136. He was given IV Cardizem after which his rate improved though he developed hypotension. On examination patient is on 20 of Levophed, blood pressures maintained around MAP of high 50s to low 60, heart rate of 80 bpm, patient on BiPAP ventilation, awake and alert. Vasopressin was started, repeat H&H showed hemoglobin down to 9.6 given concerns for shock 1 unit of blood transfusion was ordered patient was given 1 more liter of fluid bolus and continued on NS at 75 cc/h, IV albumin was administered. When seen again in the ICU patient was on 20 of Levophed, 0.3 of vaso. Was transition over to heated high flow. Review of Systems General: Reports: 10 or more systems reviewed and unremarkable except in HPI and below Const: Denies: fever(s), chills, body aches, change in appetite, change in weight, malaise, night sweats, diaphoresis, change in sleep pattern, daytime sleepiness or snoring Eyes: Denies: change in vision, blurry vision, photophobia, eye discomfort or eye discharge ENMT: Denies: throat pain, enlarged tonsils, hoarseness, mouth pain, oral sores, dry mouth, tinnitus, nasal congestion or post nasal drip Card: Denies: chest pain, palpitations, irregular heart rhythm, edema, swelling of feet/ankles, lightheadedness, syncope, pre-syncope, dyspnea on exertion, orthopnea, leg pain with exertion or acrocyanosis Resp: Denies: dyspnea, productive cough, non-productive cough, wheezing, stridor, pain on inspiration, change in phlegm color, hemoptysis or chest congestion GI: Denies: abdominal pain, nausea, vomiting, hematemesis, coffee ground emesis, dysphagia, heartburn, diarrhea, constipation, bloating, GI cramping, change in bowel habits, pain on defecation, hematochezia or melena : Denies: flank pain, difficulty urinating, dysuria, urinary frequency, urinary urgency, urinary hesitancy, urinary dribbling, difficulty starting urination, change in urine stream, nocturia or hematuria Musc: Denies: neck pain, back pain, extremity pain, joint pain, joint swelling, joint redness, joint stiffness or limited range of motion Neuro: Denies: headache(s), numbness in extremities, weakness in extremities, sensory changes, lack of coordination, difficulty walking, frequent falls, dizziness, vertigo, confusion, Slurred speech present, difficulty communicating thoughts or seizure-like activity Psych: Denies: anxiety, depression, mood swings, panic attacks, hopelessness or irritability Endo: Denies: polyuria, polydipsia, tired all the time, cold intolerance, excessive sweating, flushing or heat intolerance Elfego/Lymph: Denies: easy bruising or easy bleeding All/Imm: Denies: tongue swelling, facial swelling or acute wheezing Medications/Allergies Home Medications ?Medication ?Instructions ?Recorded ?Confirmed ?Last Taken ?Type atorvastatin 20 mg tablet 10 mg PO DAILY 05/07/19 06/03/24 05/29/24 History melatonin 10 mg capsule 10 mg PO DAILY 05/07/19 06/03/24 Unknown History terazosin 1 mg capsule 1 mg PO BID 05/07/19 06/03/24 05/29/24 08:00 History nitroglycerin 0.4 mg sublingual 0.4 mg sublingual Q5M PRN chest 08/27/19 06/03/24 Unknown Rx tablet (Nitrostat) pain #25 tabs acetaminophen 650 mg 650 mg PO Q12H 02/21/20 06/03/24 11/27/23 History tablet,extended release hydrocodone 5 mg-acetaminophen 325 1 - 2 tab PO .Q4-6H PRN pain 7 02/13/24 06/03/24 Unknown Rx mg tablet days #40 tabs apixaban 5 mg tablet (Eliquis) 5 mg PO BID 04/19/24 06/03/24 05/29/24 08:00 History carvedilol 6.25 mg tablet 6.25 mg PO BID #180 tabs 04/19/24 06/03/24 05/29/24 08:00 Rx duloxetine 20 mg capsule,delayed 20 mg PO BID 04/19/24 06/03/24 05/30/24 07:56 History release famotidine 20 mg tablet 20 mg PO BID 04/19/24 06/03/24 05/29/24 07:00 History furosemide 80 mg tablet 40 mg PO BID 04/19/24 06/03/24 05/29/24 08:00 History gabapentin 300 mg capsule 300 mg PO BEDTIME 04/19/24 06/03/24 05/29/24 History lisinopril 2.5 mg tablet 2.5 mg PO DAILY 04/19/24 06/03/24 05/29/24 History Cbc Gummies 1 gummy PO BEDTIME PRN sleep or 05/30/24 06/03/24 Unknown History pain aspirin 81 mg tablet,delayed 81 mg PO DAILY 05/30/24 06/03/24 05/29/24 History release (Niall Low Dose Aspirin) budesonide 160 mcg-glycopyr 9 2 inh inhalation BID 05/30/24 06/03/24 Unknown History mcg-formot 4.8 mcg/actuation HFA inhaler (Breztri Aerosphere) cholecalciferol (vitamin D3) 25 25 mcg PO DAILY 05/30/24 06/03/24 05/29/24 History mcg (1,000 unit) tablet (Vitamin D3) cyanocobalamin (vitamin B-12) 100 100 mcg PO DAILY 05/30/24 06/03/24 05/29/24 History mcg tablet (Vitamin B-12) gemfibrozil 600 mg tablet 600 mg PO BID high triglycerides 05/30/24 06/03/24 05/29/24 07:00 History levothyroxine 125 mcg tablet 125 mcg PO DAILY 05/30/24 06/03/24 05/29/24 History naloxone 0.4 mg/mL injection 0.4 mg SUBCUT Q2M PRN overdose 05/30/24 06/03/24 Unknown History solution olopatadine 0.2 % eye drops 1 drp ophthalmic (eye) DAILY 05/30/24 06/03/24 05/28/24 History tamsulosin 0.4 mg capsule 0.4 mg PO DAILY 05/30/24 06/03/24 05/29/24 History empagliflozin 10 mg tablet 10 mg PO DAILY 30 days #30 tabs 05/31/24 06/03/24 Unknown Rx (Jardiance) Allergies Allergy/AdvReac Type Severity Reaction Status Date / Time amiodarone Allergy Severe ALGY-Difficulty Verified 05/30/24 00:38 Breathing adhesive tape Allergy rips skin Verified 05/30/24 00:38 Sulfa (Sulfonamide Allergy Unknown Verified 05/30/24 00:38 Antibiotics) gabapentin AdvReac Mild INCREASED Verified 05/30/24 00:38 BURNING IN FEET PFSH Acute PFSH: Medical History (Updated 06/03/24 @ 14:34 by Kevin Garcia MD) Chronic indwelling Bingham catheter Facet arthropathy, cervical Encounter for long-term opiate analgesic use History of nonmelanoma skin cancer Spinal stenosis of cervical region Cervical radiculitis Amiodarone toxicity Sleep apnea Ischemic cardiomyopathy Tobacco abuse SVT (supraventricular tachycardia) History of pulmonary embolism History of DVT (deep vein thrombosis) Chronic kidney disease (CKD) PAD (peripheral artery disease) Diabetes HTN (hypertension) COPD (chronic obstructive pulmonary disease) ASHD (arteriosclerotic heart disease) CHF (congestive heart failure) Hypothyroidism Anticoagulant long-term use Atrial fibrillation Surgical History Hx of neck surgery 12/13/19 Neftali-removed 2 discs and placed 2 plastic discs S/P CABG (coronary artery bypass graft) H/O cardiac radiofrequency ablation Family History Grandmother Cancer Father Diabetes Mother Diabetes Brother Diabetes Hypertension Sister Diabetes Denies family history of Anesthesia complication Bleeding disorder Social History Smoking and tobacco/nicotine status: current every day tobacco/nicotine user cigarettes Packs smoked per day: 1 Alcohol intake: former Substance/Drug Use: never Caregiver/support person: Yes Household members: spouse Marital status: service: Yes branch: [employer] Vitals/I&O/Wt Last Vital Signs Temp 98.2 F 06/03/24 05:30 Pulse 88 06/03/24 10:21 Resp 24 H 06/03/24 10:10 BP 102/53 06/03/24 08:30 Pulse Ox 97 06/03/24 10:10 O2 Del Method BiPAP 06/03/24 10:10 O2 Flow Rate 10 06/03/24 06:28 FiO2 50 06/03/24 10:10 06/02/24 06/03/24 06/03/24 22:59 06:59 14:59 Intake Total 0 / 0 2844.650 / 2844.650 Balance 0 / 0 2844.650 / 2844.650 Weight last 48 hrs Weight 77.111 kg Physical Exam Narrative: General: No acute distress, AO x3, frail appearing, chronically sick appearing, emotional HEENT: PERRLA, pupils bilaterally equal and reactive Chest: Normal vesicular breath sounds, no added sounds, coarse crackles present and rhonchi in the left lower zone CVS: S1-S2 regular, no murmurs, no tachycardia, no gallops, no rubs Abdomen: Soft, nontender, no organomegaly, bowel sounds present Neuro: No focal deficits, no facial deformity, AO x3, power 5/5 in all limbs Urinary Catheter Management: 3-way Urethral CBI: Cath Placed During This Visit: yes Urinary Catheter Date of Insertion: 06/03/24 Urinary Catheter Time of Insertion: 06:00 Data 06/03/24 10:28 06/03/24 05:50 Micro: Microbiology 06/03/24 05:50 Blood Culture - Preliminary Blood SPECIMEN COLLECTED 06/03/24 05:47 Blood Culture - Preliminary Blood SPECIMEN COLLECTED A&P Assessment and plan (1) Septic shock: Maintain mean arterial pressure around 65. Currently on Levophed and vasopressin. Wean accordingly. NICOM fluid assessment. Patient received fluid sepsis bolus in the ER. Transfuse 1 more liter of IV fluids. IV albumin 5% one-time. NS at 75 cc/h. Watch for fluid overload. Concern for adrenal insufficiency most likely in setting of septic shock. Check cortisol level. IV hydrocortisone 100 mg one-time. Patient will be on steroids for COPD exacerbation as well. (2) Acute hypoxemic respiratory failure: Oxygen supplementation keeping saturation over 88%. Wean accordingly. Switch from to heated high flow. Most likely in setting of pneumonia and COPD exacerbation. With history of ischemic cardiomyopathy with no known known EF in the chart. Pulmicort twice daily, ipratropium, Xopenex every 6 hours. Solu-Medrol 40 mg every 6 hour Check sputum culture, respiratory viral panel, blood culture, urine bacterial antigen, urinalysis, D-dimer, MRSA swab. Empirically start patient on IV Zosyn and vancomycin. Appreciate CT chest with contrast done in the ER. No concern for PE. Concern for left lower lobe pneumonia. Check echocardiogram. Strict input output charting, daily weights. Watch for fluid overload. (3) Pneumonia: (4) UTI (urinary tract infection): Complicated UTI. History of chronic [place] recurrent UTIs. Currently having significant hematuria. Check urine culture. Antibiotic as above. (5) Anemia: Most likely in setting of significant hematuria. Hemoglobin on presentation 12. Down to 9.6. Given patient being in shock for now will transfuse 1 unit of PRBC. Monitor hemoglobin every 12 hours. Check iron panel, appreciate recent vitamin B12, reticulocyte count, LDH folate level. Start on IV iron supplementation. (6) Hematuria: Significant hematuria. Hold off on Eliquis. Continue with CBI for now. If continues to have significant hematuria for next 24 to 48 hours we will plan to transfer patient to tertiary center where urology is available for possible cystoscopy. Given significant hematuria, septic shock, leukopenia with history of DVT and PE in the past for now we will rule out DIC with checking D-dimer, FDP and fibrinogen levels. Txa one time. (7) Ischemic cardiomyopathy: History of ischemic cardiomyopathy, post CABG as per cardiology notation as an outpatient. No echocardiogram available. Check echocardiogram. Watch for fluid overload. (8) Leukopenia: Acute in nature. Associated with neutropenia. Continue to monitor daily. Placed on neutropenic precautions. Could be in setting of severe sepsis or viral prodrome. (9) Chronic indwelling Bingham catheter: (10) COPD (chronic obstructive pulmonary disease): (11) S/P CABG (coronary artery bypass graft): (12) SVT (supraventricular tachycardia): (13) H/O cardiac radiofrequency ablation: (14) History of DVT (deep vein thrombosis): (15) Failure to thrive: Elderly patient. Recently discharged to SNF for rehabitation. Once patient improves we will plan for physical therapy. Protein shakes. Plan Constipation: Disks in the CT abdomen pelvis. Aggressive oral bowel regimen. Abdominal improved will plan for enema. Lines: Chronic indwelling Bingham. Central right jugular placed in the ER. Analgesia: Tylenol, morphine as needed, Marshall Q6h prn Glycemic control: Not needed. Check A1c. Nutrition: Mechanical soft diet CODE STATUS: DNR/DNI PUD prophylaxis: Protonix DVT prophylaxis: SCD. Hold off on medical prophylaxis given acute anemia and hematuria Discharge planning: SNF. Will consult case management. Continue with care at ICU This documentation was created by [email or web address] systems planner software. Every effort was made to ensure accuracy of systems planner. Any obvious errors or omissions should be clarified with the author of the document. PDMP PDMP Reviewed: Not Reviewed Attestations Medical Necessity Statement*: Requires admission for more than 2 midnights for management of septic shock, respiratory failure, anemia in setting of hematuria, pneumonia, UTI in a patient with history of ischemic cardiomyopathy Critical Care Time: The high probability of a clinically significant, sudden or life threatening deterioration of the patient's [pulmonary, cardiac, hematological, neurological] system(s) required my full and direct attention, intervention and personal management. The critical care time is as shown. This time is in addition to time spent performing any reported procedures but includes the following: [x] Data and vital sign review and interpretation [x] Patient assessment, examination and intervention [x] Documentation [x] Medication orders and management Critical Care Time (min): 90 Coding Level of Care Code Critical Care >/= 30 minutes Critical care time (in minutes): 90 The high probability of a clinically significant, sudden or life threatening deterioration, as referenced in this documentation, required my full and direct attention, intervention and personal management. The critical care time shown is in addition to time spent performing any reported separately billable procedures and includes the following: [x] Data and vital sign review and interpretation [x] Patient assessment, examination and intervention [x] Medication orders and management [x] Patient/Family updates as able [x] Care Coordination and Documentation. Other Coding Information This patient has a high probability of clinically significant, sudden or life threatening deterioration of the patient's (neurological/pulmonary/cardiac/renal/ID/endocrine) systems required my full, direct attention, the highest level of physician preparedness for urgent intervention and personal management. I managed/supervised life or organ supporting interventions that required frequent physician assessment. I devoted my full attention in the ICU to the direct care of this patient for the period of time indicated above. Time I spent with family or surrogate(s) is included only if the patient was incapable of providing necessary information or participating in decision making. This time includes the following services provided: Telemetry review Nonmechanical ventilation Hemodynamic interpretation, assessment and management Review and interpretation of CXR Review and interpretation of lab values Review and interpretation of microbiologic data and culture results Review of medications and administration Review and interpretation of Nutrition requirements and management Discussion of management with other consultants and services Clinical update to family members Diagnoses Septic shock A41.9; R65.21 Acute hypoxemic respiratory failure J96.01 Pneumonia J18.9 UTI (urinary tract infection) N39.0 Anemia D64.9 Hematuria R31.9 Ischemic cardiomyopathy I25.5 Leukopenia D72.819 Chronic indwelling Bingham catheter Z97.8 COPD (chronic obstructive pulmonary disease) J44.9 S/P CABG (coronary artery bypass graft) Z95.1 SVT (supraventricular tachycardia) I47.1 H/O cardiac radiofrequency ablation Z98.890 History of DVT (deep vein thrombosis) Z86.718 Failure to thrive
[2024-06-03 10:34] LABS: Hematocrit 31.6 % (37-53)
[2024-06-03 10:46] LABS: INR 1.29 (0.8-1.2)
[2024-06-03] MEDS: pantoprazole 40 mg SDV IVP (10:49)
[2024-06-03] MEDS: methylPREDNISolone sod succ 40 mg/mL INJ IVP ×3 (10:52→22:01)
[2024-06-03] MEDS: hydrocortisone 100 mg/2 mL SDV IVP (10:53)
[2024-06-03] MEDS: albumin 12.5 GM/250 ML VIAL IV (10:56)
[2024-06-03] MEDS: vancomycin 500 MG in sodium chloride 0.9% (plus) 100 ML 200 MG IV (11:42)
[2024-06-03] MEDS: norepinephrine 4 MG/250 ML BAG 75 MG IV ×3 (11:45→22:17)
[2024-06-03 12:32] LABS: Add Urine Microscopic? NO; Urine Appearance Turbid (CLEAR); Urine Color Red (Yellow)
[2024-06-03 12:35] LABS: UA Manual Slide Review YES
[2024-06-03 12:50] LABS: Add Urine Culture? Yes; Bacteria Urine 1+ /hpf; RBC Urine >100 /hpf (0-2); Squamous Epithelial Cell Urine 0-4 /hpf (0-5); WBC Urine >100 /hpf (0-5)
--- NOTE | 2024-06-03 13:48 | PHA.VACGOAL ---
Vancomycin Goal - Goal Vancomycin Goal:: 15-20 mg/L Vancomycin Indication:: Pneumonia (SEPSIS) - Therapy Current therapy:: Pip/Tazo Day of therpy:: Day [1]of [] . Actual body weight (kg): 77.111 kg - Data Labs: WBC 1.27 10^3/uL (3.29-11.43) L 06/03/24 05:50 RBC 4.83 10^6/uL (3.85-5.65) 06/03/24 05:50 Hgb 9.60 g/dL (11.27-16.99) L 06/03/24 10:28 Hct 31.6 % (37-53) L 06/03/24 10:28 MCV 86.1 fl (82-101) 06/03/24 05:50 MCH 26.7 pg (27-33) L 06/03/24 05:50 MCHC 31.0 g/dL (30-55) 06/03/24 05:50 RDW 17.0 % (12.1-15.1) H 06/03/24 05:50 Sodium 141 mmol/L (136-145) 06/03/24 05:50 Potassium 3.5 mmol/L (3.5-5.1) 06/03/24 05:50 Chloride 100 mmol/L (98-107) 06/03/24 05:50 Carbon Dioxide 22 mmol/L (22-29) 06/03/24 05:50 Anion Gap 22.5 (5-19) H 06/03/24 05:50 BUN 43 mg/dL (8-23) H 06/03/24 05:50 Creatinine 1.2 mg/dL (0.7-1.2) 06/03/24 05:50 GFR Calculation Not Reportable 06/03/24 05:50 Treatment plan:: new consult Regimen:: New start vancomycin for Sepsis/Pneumonia. No prior history of Vancomycin found. Load dose of 1500 mg given. Started on maintenance dose of 750 mg q12h.
[2024-06-03] MEDS: ipratropium 0.5 mg/2.5 mL Neb INHALATION ×2 (14:15→19:43)
[2024-06-03] MEDS: levalbuterol 0.63 mg/3 mL Neb INHALATION ×2 (14:15→19:43)
[2024-06-03] MEDS: sodium chloride 0.9% 1,000 ML 75 ML IV (14:57)
[2024-06-03] MEDS: tranexamic acid 1,000 mg/10mL SDV 1000 MG IV (14:58)
[2024-06-03 15:00] LABS: Reticulocyte % 1.8 % (0.5-2.0)
[2024-06-03 15:07] LABS: Adenovirus Not Detected (NOT DETECT); Chlamydia Pneumoniae Not Detected (NOT DETECT); Coronavirus 229E,HKU1,NL63,OC4 Not Detected (NOT DETECT); Human Metapneumovirus Not Detected (NOT DETECT); Human Rhinovirus/Enterovirus Not Detected (NOT DETECT); Influenza A Not Detected (NOT DETECT); Influenza A H1 Not Detected (NOT DETECT); Influenza A H1-2009 Not Detected (NOT DETECT); Influenza A H3 Not Detected (NOT DETECT); Influenza B Not Detected (NOT DETECT); Mycoplasma Pneumoniae Not Detected (NOT DETECT); Parainfluenza Virus Type 1 Not Detected (NOT DETECT); Parainfluenza Virus Type 2 Not Detected (NOT DETECT); Parainfluenza Virus Type 3 Not Detected (NOT DETECT); Parainfluenza Virus Type 4 Not Detected (NOT DETECT); Respiratory Syncytial Virus A Not Detected (NOT DETECT); Respiratory Syncytial Virus B Not Detected (NOT DETECT); SARS-COV-2 Not Detected (NOT DETECT)
[2024-06-03 15:10] LABS: Lactate Dehydrogenase 228 U/L (135-225)
[2024-06-03 15:11] LABS: MRSA PCR OZH (swab) MRSA Detected (Negative)
--- NOTE | 2024-06-03 15:16 | ECG_ITS ---
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 Measurements Intervals [place] Rate: 80 P: 19 AR: 182 QRS: 15 QRSD: 106 T: -4 QT: 392 QTc: 453 Interpretive Statements SINUS RHYTHM INFERIOR MYOCARDIAL INFARCTION , PROBABLY OLD [40+ ms Q WAVE AND/OR ST/T ABNORMALITY IN II/aVF] Compared to ECG 06/03/2024 05:52:31 Myocardial infarct finding now present Sinus tachycardia no longer present T-wave abnormality no longer present Electronically Signed On 06-03-2024 22:40:48 CDT by Herbie Lagunas M.D. [email or web address] [id number]
[2024-06-03] MEDS: aspirin 81 mg EC Tablet PO (15:41)
[2024-06-03] MEDS: norepinephrine 4 MG/250 ML BAG 60 MG IV (15:41)
[2024-06-03] MEDS: magnesium hydroxide 30 mL UDC PO (15:41)
--- NOTE | 2024-06-03 16:23 | PC.NURSE ---
pt admitted from er with bloody urine on cbi pt alert and responsive to questions , tearful and upset does want to be DNR but will accecpt care at this time states that he has been sick for long time and is tired of going through this he is ready to , attempt to give blood and pt refused then with here and jose antonioer on facetime after talking with doctor at [facility] did agree to go ahead with blood and treatment for now . levophed and vasopressin remain infusing
--- NOTE | 2024-06-03 16:30 | ECG_ITS ---
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 Measurements Intervals [place] Rate: 78 P: 21 NE: 184 QRS: 7 QRSD: 112 T: 4 QT: 415 QTc: 475 Interpretive Statements SINUS RHYTHM INFERIOR MYOCARDIAL INFARCTION , PROBABLY OLD [40+ ms Q WAVE AND/OR ST/T ABNORMALITY IN II/aVF] MODERATE T-WAVE ABNORMALITY, CONSIDER ANTERIOR ISCHEMIA [-0.1+ mV T-WAVE IN V3/V4] Compared to ECG 06/03/2024 15:16:12 T-wave abnormality now present Possible ischemia now present Myocardial infarct finding still present Electronically Signed On 06-03-2024 22:48:42 CDT by Herbie Lagunas M.D. [email or web address]
[2024-06-03 16:50] LABS: Hematocrit 32.9 % (37-53)
[2024-06-03 16:54] LABS: Troponin(5th) Baseline 48 ng/L (0-15)
[2024-06-03 16:57] LABS: Fibrinogen 523 mg/dL (174-498)
[2024-06-03 17:06] LABS: D Dimer 12.89 ug/mLFEU (0-0.59)
[2024-06-03] MEDS: duloxetine 20 mg Capsule PO (17:23)
[2024-06-03] MEDS: docusate sodium 100 mg Capsule PO (17:23)
[2024-06-03] MEDS: VANCOMYCIN ADD-Vantage 750 MG in 0.9% NaCl ADD-Vantage 250 ML 250 MG IV (20:10)
--- NOTE | 2024-06-03 20:36 | ECG_ITS ---
[facility] Date: 2024-[facility]-03 Pat Name: Ghassan Kline Department: Room: 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 Measurements Intervals [place] Rate: 79 P: 15 UT: 199 QRS: 3 QRSD: 130 T: -2 QT: 410 QTc: 471 Interpretive Statements SINUS RHYTHM INFERIOR MYOCARDIAL INFARCTION , PROBABLY OLD [40+ ms Q WAVE AND/OR ST/T ABNORMALITY IN II/aVF] Compared to ECG 06/03/2024 16:30:18 T-wave abnormality no longer present Possible ischemia no longer present Myocardial infarct finding still present Electronically Signed On 06-03-2024 22:47:25 CDT by Herbie Lagunas M.D. [email or web address] [id number]
--- NOTE | 2024-06-03 21:00 | PC.NURSE ---
Mucomyst Patient requests medication to assist him in coughing up phlegm. Dr. Kaplan contacted and order received for 200 mg mucomyst PRN.
[2024-06-03] MEDS: gabapentin 300 mg Capsule PO (22:01)
[2024-06-03 22:39] LABS: Troponin 5 6HR 43.83 ng/L (0-15)
[2024-06-03 22:50] LABS: Troponin 5 6HR Delta -4.17 ng/L (0-12)
--- NOTE | 2024-06-03 23:44 | PC.NURSE ---
Left sided weakness Patient states left arm and leg are weaker than right side. He states this is normal for him and that it has been this way for a long time. Patient denies history of stroke. Dr. Kaplan notified.
[2024-06-04] VITALS (47 sets, daily range): BP systolic 86–142; BP diastolic 61–115; PULSE 59–93; RESP 9–30; TEMP 35.8–37.1; O2SAT 86–99
[2024-06-04] MEDS: acetaminophen 325 mg Tablet 650 MG PO (00:50)
[2024-06-04] MEDS: norepinephrine 4 MG/250 ML BAG 75 MG IV (00:51)
[2024-06-04] MEDS: acetylcysteine 200 mg/mL MDV 10 mL INHALATION ×2 (02:28→07:41)
[2024-06-04] MEDS: ipratropium 0.5 mg/2.5 mL Neb INHALATION ×2 (02:28→07:41)
[2024-06-04] MEDS: levalbuterol 0.63 mg/3 mL Neb INHALATION ×2 (02:29→07:41)
[2024-06-04] MEDS: methylPREDNISolone sod succ 40 mg/mL INJ IVP ×2 (03:46→08:52)
[2024-06-04] MEDS: norepinephrine 4 MG/250 ML BAG 67.5 MG IV (04:08)
[2024-06-04] MEDS: sodium chloride 0.9% 1,000 ML 75 ML IV (04:10)
[2024-06-04 05:25] LABS: Hematocrit 34.3 % (37-53); Mean Corpuscular HGB Conc 31.2 g/dL (30-55); Mean Corpuscular Hemoglobin 27.4 pg (27-33); Mean Corpuscular Volume 87.9 fl (82-101); Mean Platelet Volume 10.3 fL (7.4-10.4); Platelet Count 156 10^3/cmm (157-399); Red Cell Distribution Width 17.5 % (12.1-15.1)
[2024-06-04] MEDS: piperacillin-tazobactam 3.375 GM in sodium chloride 0.9% (plus) 50 ML IV (05:25)
[2024-06-04 05:40] LABS: Slide Review Slide Review Perform; White Blood Count 35.27 10^3/uL (3.29-11.43)
[2024-06-04 05:42] LABS: Alanine Aminotransferase 7 U/L (0-41); Albumin Level 3.1 g/dL (3.5-5.2); Alkaline Phosphatase 65 U/L (40-130); Anion Gap 18.1 (5-19); Aspartate Amino Transferase 19 U/L (0-40); Blood Urea Nitrogen 45 mg/dL (8-23); Calcium 7.8 mg/dL (8.5-10.5); Carbon Dioxide 19 mmol/L (22-29); Chloride 109 mmol/L (98-107); Chol HDL Ratio 3.35 mg/dL (1.0-5.00); Cholesterol 87 mg/dL (0-200); Globulin 3.9 g/dL (1.3-4.6); Glucose 238 mg/dL (65-115); HDL Cholesterol 26 mg/dL (60-100); LDL Cholesterol Calculated 31 mg/dL (50-129); LDL HDL Ratio 1.19 RATIO (0.00-3.22); Magnesium 1.5 mg/dL (1.7-2.3); Osmolality Calculated 315 mOsm/kg (285-295); Phosphorus 3.7 mg/dL (2.5-4.5); Potassium 3.1 mmol/L (3.5-5.1); Sodium 143 mmol/L (136-145); Total Bilirubin 0.5 mg/dL (0.15-1.2); Triglycerides 148 mg/dL (0-150)
[2024-06-04 05:48] LABS: Procalcitonin 95.96 ng/mL (0-0.5)
[2024-06-04 05:52] LABS: Absolute Neutrophil 28.2 10^3/cmm (1.4-6.5); Absolute Segmented Neutrophil 21.9 10/cmm (1.6-7.1); Band Neutrophils Absolute 6.3 10^3/cmm (0.0-1.2); Eosinophils 0 %; Lymphocytes 4 %; Lymphocytes Absolute 1.4 10^3/cmm (1.2-3.4); Monocytes Absolute 0.7 10^3/cmm (0.1-0.6); Platelet Estimate Normal (Normal); Segmented Neutrophils 62 %; Total Cells Counted 100 (0-100)
[2024-06-04 06:19] LABS: Folate Level 5.6 ng/mL (4.5-32.2)
--- OUTSIDE RECORDS SUMMARY | 2024-06-04 06:23 | XMS_ITS ---
Author Organization [facility] Address [address] [facility] [place] [address] Care Team Providers Care Used Car Renovator Name Role Phone Sintia Luevano Primary Care Provider Unavailab serge PIETRO SANTOS Unavailable [phone] NELSON LINTON Unavailable [phone] Allergies Allergen (clinical drug ingredient) Drug/Non Drug Allergy documented on EMR Reaction Allergy Type Onset Date Status Substance with sulfonamide structure and antibacterial mechanism of action (substance) Sulfa Antibiotics Unknown Drug Allergy Active Results Component Value Reference Range Notes Urinalysis, Routine Reviewed date:04/30/2024 03:39:49 PM Interpretation: Performing Lab: Notes/Report: Urine-Color dark yellow Appearance cloudy Glucose - Bilirubin - Ketones - Specific [place] 1.030 Occult Blood 3+ pH 5.5 Urine Protein 3+ Urobilinogen,Semi-Qn - Nitrite, Urine - WBC Esterase 2+ UBASE - Urinary Tract Infect ion (HTRx) Reviewed date:05/03/2024 10:41:32 AM Interpretation: Performing Lab:, [facility], [address], [place], Phone - [phone], Director - [id number] Notes/Report: Real-Time polymerase chain reaction (TaqMan qPCR) was utilized for detection for all tested organisms and resistance genes. Initiation of antimicrobial therapy prior to testing may affect results and can lead to the detection of non-living microorganisms. Detection of microbes must be correlated with current/recent antibiotic usage and patient signs and symptoms. Microbial sensitivity testing is not performed at this lab. Concrete Vibrator Operator to CFU/mL equivalent thresholds were established based on studies using known CFU/mL urine specimens performed at [facility] in [place], [place]. Testing performed by [facility] (Eric Diaz, [place] [address]; CLIA# [id number]; Manager In Home Selam Avery, PhD, [facility])). This test was developed, and its performance characteristics determined by [facility]. It has not been cleared or approved by the FDA. However, such approval/clearance is not required, as the laboratory is regulated and qualified under CLIA to perform high-complexity testing. This test is used for clinical purposes and should not be regarded as investigational or for research. *Approximate copies of target nucleic acid per &micro;L (Low: <2,500 copies/&micro;L, Moderate: 2,500-50,000 copies/&micro;L, High: >50,000 copies/&micro;L) National Infectious Disease Consensus Data Potentially effective oral antibiotics, based on presence of detected microbes, antimicrobial resistance genes, and national antimicrobial sensitivity data (see Summary Antibiogram). Acinetobacter baumannii 0.000 19.961 - 24.689 p pm Acinetobacter baumannii Not Detected 19.961 - 24.689 p pm Citrobacter freundii 0.000 23.000 - 31.881 ppm Citrobacter freundii Not Detected 23.000 - 31.881 ppm Enterobacter aerogenes, cloacae 0.000 23.000 - 31.535 ppm Enterobacter aerogenes, cloacae Not Detected 23.000 - 31.535 ppm Enterococcus faecalis, faecium 29.596 26.000 - 3 1.575 ppm Enterococcus faecalis, faecium Detected 26.000 - 3 1.575 ppm Escherichia coli 25.822 23.000 - 28.500 ppm Escherichia coli Detected 23.000 - 28.500 ppm Klebsiella pneumoniae, oxytoca 0.000 23.000 - 3 0.500 ppm Klebsiella pneumoniae, oxytoca Not Detected 23.000 - 3 0.500 ppm Morganella morganii 0.000 19.961 - 24.689 ppm Morganella morganii Not Detected 19.961 - 24.689 ppm Proteus mirabilis, vulgaris 0.000 23.000 - 28.5 00 ppm Proteus mirabilis, vulgaris Not Detected 23.000 - 28.5 00 ppm Pseudomonas aeruginosa 0.000 23.000 - 28.500 pp m Pseudomonas aeruginosa Not Detected 23.000 - 28.500 pp m Staphylococcus aureus 0.000 26.000 - 30.902 ppm Staphylococcus aureus Not Detected 26.000 - 30.902 ppm Streptococcus agalactiae (Group B Strep) 0.000 26.000 - 32.222 ppm Streptococcus agalactiae (Group B Strep) Not Detected 26.000 - 32.222 ppm Karla albicans, parapsilosis, tropicalis 27.638 19.961 - 30.770 ppm Karla albicans, parapsilosis, tropicalis Detected 19.961 - 30.770 ppm Karla glabrata (Nakaseomyces glabratus) 0.000 23.000 - 32.138 ppm Karla glabrata (Nakaseomyces glabratus) Not Detected 23.000 - 32.138 ppm Karla krusei (Pichia kudriavzevii) 0.000 23.0 00 - 32.271 ppm Karla krusei (Pichia kudriavzevii) Not Detected 23.0 00 - 32.271 ppm Serratia marcescens 0.000 23.000 - 31.204 ppm Serratia marcescens Not Detected 23.000 - 31.204 ppm Streptococcus pyogenes (Group A strep) 0.000 19 .961 - 24.689 ppm Streptococcus pyogenes (Group A strep) Not Detected 19 .961 - 24.689 ppm Staphylococcus saprophyticus 0.000 19.961 - 24. 689 ppm Staphylococcus saprophyticus Not Detected 19.961 - 24. 689 ppm Staphylococcus epidermidis, haemolyticus, lugdunensis 0.000 19.961 - 24.689 ppm Staphylococcus epidermidis, haemolyticus, lugdunensis Not Detected 19.961 - 24.689 ppm REASON FOR VISIT urinary retention/bph Medications Medication SIG (Take, Route, Fr equency, Duration) Notes Start Date End Date Status Nitrofurantoin Activ e Social History Tobacco Use: Social History Observation Description Date Details (start date - stop date) Current Smoker NA - NA Tobacco Control (Standard) Question Answer Notes Tobacco use: Current smoker How often do you smoke cigarettes? Every day Problems Problem Type SNOMED Code ICD Code Onset Dates Problem Status W/U Status Risk Notes Problem Benign prostatic hyperplasia ([id number]) BPH (benign prostatic hyperplasia) (N40.0) Active confirmed Vital Signs Blood pressure systolic 100 mm Hg 04/30/19 25 Blood pressure diastolic 66 mm Hg 025 Heart Rate 101 /min 04/30/2024 Encounters Encounter Location Date Provider Diagnosis Lillie Oropeza [facility], [place] [address] [facility] [place] [address] 04/30/2024 NELSON LINTON BPH (benign prostati c hyperplasia) N40.0 ; Urinary retention R33.9 and Complicated UTI (urinary tract infection) N39.0 Assessments Encounter Date Diagnosis (ICD Code) Assessment Notes Treatment Notes Treatment Clinical Notes Section Notes 04/30/2024 BPH (benign prostatic hyperplasia) (ICD-10 - N40.0) Difficult initial consultations today as I have no records for patient - incorrect records were sent on a different patient - and a patient who is a poor historian and angry and agitated with his over all health status and not able to provide any helpful history. His does not participate in his history. I know that he has had a wade for months. I do not know if he is on any prostate medications but takes a whole handful of medications. He has failed several voiding trials. He is on abx for UTI, but urine looks grossly infected and he is having bladder pain. Will send for PCR today and change antibiotics as indicated. Will request records from [place] and from his labs he said he had drawn last week. Will add medications if we need to but regardless he needs cystoscopy to r/o prostate obstruction and/or suprapubic tube placement if he is an elective surgical candidate. Either way, he is very upset with catheter management of his retention. 04/30/2024 Urinary retention (ICD-10 - R33.9) Difficult initial consultations today as I have no records for patient - incorrect records were sent on a different patient - and a patient who is a poor historian and angry and agitated with his over all health status and not able to provide any helpful history. His does not participate in his history. I know that he has had a wade for months. I do not know if he is on any prostate medications but takes a whole handful of medications. He has failed several voiding trials. He is on abx for UTI, but urine looks grossly infected and he is having bladder pain. Will send for PCR today and change antibiotics as indicated. [facility] from his labs he said he had drawn last week. Will add medications if we need to but regardless he needs cystoscopy to r/o prostate obstruction and/or suprapubic tube placement if he is an elective surgical candidate. Either way, he is very upset with catheter management of his retention. 04/30/2024 Complicated UTI (urinary tract infection) (ICD-10 - N39.0) This patient has clinical indication for infectious disease testing. Urinalysis performed indicates the need for further sensitive detection by PCR. The patient is at higher risk for UTI complications and is being seen in the urologic setting. The enhanced diagnostic accuracy, identification of possible resistance mutations, and quicker result to better guide antibiotics and prevention infection complications that PCR provides is recommended. Difficult initial consultations today as I have no records for patient - incorrect records were sent on a different patient - and a patient who is a poor historian and angry and agitated with his over all health status and not able to provide any helpful history. His does not participate in his history. I know that he has had a wade for months. I do not know if he is on any prostate medications but takes a whole handful of medications. He has failed several voiding trials. He is on abx for UTI, but urine looks grossly infected and he is having bladder pain. Will send for PCR today and change antibiotics as indicated. Will request records from [place] and from his labs he said he had drawn last week. Will add medications if we need to but regardless he needs cystoscopy to r/o prostate obstruction and/or suprapubic tube placement if he is an elective surgical candidate. Either way, he is very upset with catheter management of his retention. Plan Of Treatment Treatment Notes Assessment Notes Complicated UTI (urinary tract infection ) This patient has clinical indication for infectious disease testing. Urinalysis performed indicates the need for further sensitive detection by PCR. The patient is at higher risk for UTI complications and is being seen in the urologic setting. The enhanced diagnostic accuracy, identification of possible resistance mutations, and quicker result to better guide antibiotics and prevention infection complications that PCR provides is recommended. Next Appt Details Follow Up: cystoscopy, Reaso n: Provider Name:PIETRO Clark, 06/11/2024 11:00:00 AM, [address] [place] [address], [id number], Progress Notes * Ghassan KLINEDOB:[birth year] (78 yo M)Acc No.[id number]:04/30/2024 Progress Notes Patient:?Ghassan KLINE Provider:?Nelson Linton APRN :[id number]???Age:78 Y???Sex:Male Pasha e:04/30/2024 Address:[address] [place], [place] [id number] Pcp:Sintia Luevano Subjective: * Chief Complaints: * ???Urinary retention/bph * HPI: ???:?Pt is a 78yoM who [facility] We have an RFS auth for his visit, but the records attached are the wrong patient. They are a different patient name and . Pt is a poor historian. His is present in the room but cannot assist in his history. He tries to give me his history, but seems very angry at his overall health picture and has a difficult time staying on subject.?He cannot really give me a timeline of symptoms. He cannot tell me his medications. He cannot tell me his surgical history other than all his problems started after his neck surgery. Unsure of date, location. He says that he has had a catheter? months. [facility] he couldn't void after his neck surgery and he has failed several voiding trials. He has home health that is changing his catheter q4w. He does not know if he is taking any prostate medications. He says he is on some kind of antibiotic right now for a UTI associated with his catheter. He does c/o bladder pain and incontinence. He does have hematuria at time. He does tell me that he takes Eliquis, but doesn't know why. He is in a wheelchair. He has SOB frequently during conversation with coughing. He has clubbed fingernails and is a smoker. He didn't and wouldn't fill out his new patient paperwork. He says he is worried he has prostate cancer and that is why he cannot void, but cannot tell me if he has had a PSA in the past or recently. * ROS:?Please refer to patient intake ROS form. It has been reviewed and is accurate. * Medical History:? * Surgical History:?cataract s x 2 neck surgeries collar bone broken heart ablations cardiac stents knee surgeries both hip replacement left neuropathy * Hospitalization/Major Diagno stic Procedure:?see surgeries * Family History:?Father: dece ased, heart attack.?Mother: , diabetes.? * Social History:?Tobacco Use:?Tobacco Control (Standard)?Tobacco use:?Current smoker,?How often do you smoke cigarettes??Every day.? * Medications:?TakingNitrofura ntoin Medication List reviewed and reconciled with the patientTaking Nitrofurantoin Medication List reviewed and reconciled with the patient * Allergies:?Sulfa Antibiotics no[Allergies Verified] Objective: * Vitals:?BP: 100/66 mm Hg, HR : 101 /min. * Examination: ???General Examination: ?General appearance:?elderly, frail, chronically ill-appearing WM who is in a wheelchair and is agitated and upset today. No acute physiologic distress..?Head:?normocephalic, atraumatic.?Eyes:?PERRL, EOMI.?Heart:?HR regular, no LE edema.?Chest:?resp even. labored at times during conversation.?Abdomen:?soft, NT, ND.?Male genitourinary:?urethral catheter with cloudy, dark yellow urine.?Musculoskeletal:?normal strength and movement in bilateral upper and lower extremities.?Neurologic:?nonfocal.?Psych:?anxious appearing, rapid speech, seems angry, somewhat uncooperative with history and exam when he becomes frustrate with trying to recall his history or answer my questions..? Assessment: * Assessment: 1.?BPH (benign prostatic hyp erplasia) - N40.0 (Primary)???2.?Urinary retention - R33.9???3.?Complicated UTI (urinary tract infection) - N39.0??? Difficult initial consultati ons today as I have no records for patient - incorrect records were sent on a different patient - and a patient who is a poor historian and angry and agitated with his over all health status and not able to provide any helpful history. His does not participate in his history. I know that he has had a wade for months. I do not know if he is on any prostate medications but takes a whole handful of medications. He has failed several voiding trials. He is on abx for UTI, but urine looks grossly infected and he is having bladder pain. Will send for PCR today and change antibiotics as indicated.? Will request records from [place] and from his labs he said he had drawn last week. Will add medications if we need to but regardless he needs cystoscopy to r/o prostate obstruction and/or suprapubic tube placement if he is an elective surgical candidate. Either way, he is very upset with catheter management of his retention. Plan: * Treatment: ? Value Reference Range ?Urine-Color dark yellow * ?Appearance cloudy * ?Glucose - * ?Bilirubin - * ?Ketones - * ?Specific [place] 1.030 * ?Occult Blood 3+ * ?pH 5.5 * ?Urine Protein 3+ * ?Urobilinogen,Semi-Qn - * ?Nitrite, Urine - * ?WBC Esterase 2+ 2.?Complicated UTI (urinary tract infection)?LAB: [facility] - Urinary Tract Infection (HTRx) (Collection Date & Time - 04/30/2024)* ? Value Reference Range ?Acinetobacter baumannii Not Detected 19.961 - 24.689 - ppm * ?Citrobacter freundii Not Detected 23 .000 - 31.881 - ppm * ?Enterobacter aerogenes, cloacae Not Detected 23.000 - 31.535 - ppm * ?Enterococcus faecalis, faecium Detected A 26.000 - 31.575 - ppm * ?Escherichia coli Detected A 23.000 - 28.500 - ppm * ?Klebsiella pneumoniae, oxytoca Not Detected 23.000 - 30.500 - ppm * ?Morganella morganii Not Detected 19. 961 - 24.689 - ppm * ?Proteus mirabilis, vulgaris Not Detected 23.000 - 28.500 - ppm * ?Pseudomonas aeruginosa Not Detected 23.000 - 28.500 - ppm * ?Staphylococcus aureus Not Detected 2 6.000 - 30.902 - ppm * ?Streptococcus agalactiae (Group B Strep) Not Dete cted 26.000 - 32.222 - ppm * ?Karla albicans, parapsilosis, tropicalis Detect ed A 19.961 - 30.770 - ppm * ?Karla glabrata (Nakaseomyces glabratus) Not Det ected 23.000 - 32.138 - ppm * ?Karla krusei (Pichia kudriavzevii) Not Detected 23.000 - 32.271 - ppm * ?Serratia marcescens Not Detected 23. 000 - 31.204 - ppm * ?Streptococcus pyogenes (Group A strep) Not Detect ed 19.961 - 24.689 - ppm * ?Staphylococcus saprophyticus Not Detected 19.961 - 24.689 - ppm * ?Staphylococcus epidermi dis, haemolyticus, lugdunensis Not Detected 19.961 - 24.689 - pp m Notes:This patient has clinical indication for infectious disease testing. Urinalysis performed indicatesthe need for further sensitive detection by PCR. The patient is at higher risk for UTI complications and is being seen in the urologic setting. The enhanced diagnostic accuracy, identification of possible resistance mutations, and quicker result to better guide antibiotics and prevention infection complications that PCR provides is recommended.?? * Procedure Codes:?28626 URINA LYSIS, AUTO, W/O SCOPE * Follow Up:?cystoscopy * Billing Information: * Visit Code:? 82982 Office Visit, New Pt., Level 4. * Procedure Codes:? 83784 URINALYSIS, AUTO, W/O SCOPE. * NEERING TECHNOLOGY INSTRUCTOR Sign off status: Completed true * Provider:?Nelson Linton APRN Date:? Generated for Destinee ochoa/Hawk/Samitting on:?06/04/2024 06:23 AM CDT History and Physical Notes * HPI (History of Present Illness) Category Sub-Category Detail Notes Category Not es Pt is a 78yoM w ho has been referred from the [place] for urinary retention. We have an RFS auth for his visit, but the records attached are the wrong patient. They are a different patient name and . Pt is a poor historian. His is present in the room but cannot assist in his history. He tries to give me his history, but seems very angry at his overall health picture and has a difficult time staying on subject. He cannot really give me a timeline of symptoms. He cannot tell me his medications. He cannot tell me his surgical history other than all his problems started after his neck surgery. Unsure of date, location. He says that he has had a catheter months. [facility] he couldn't void after his neck surgery and he has failed several voiding trials. He has home health that is changing his catheter q4w. He does not know if he is taking any prostate medications. He says he is on some kind of antibiotic right now for a UTI associated with his catheter. He does c/o bladder pain and incontinence. He does have hematuria at time. He does tell me that he takes Eliquis, but doesn't know why. He is in a wheelchair. He has SOB frequently during conversation with coughing. He has clubbed fingernails and is a smoker. He didn't and wouldn't fill out his new patient paperwork. He says he is worried he has prostate cancer and that is why he cannot void, but cannot tell me if he has had a PSA in the past or recently. Examination Category Sub-Category Detail Notes Category Not es General Examination General appearance: elderly, frail, chronically ill-appearing WM who is in a wheelchair and is agitated and upset today. No acute physiologic distress. Head: normocephalic, atrau matic Eyes: PERRL, EOMI Heart: HR regular, no LE ed raven Chest: resp even. labored a t times during conversation Abdomen: soft, NT, ND Neurologic: nonfocal Musculoskeletal: normal strength and movement in bilateral upper and lower extremities Male genitourinary: urethral catheter wi th cloudy, dark yellow urine Psych: anxious appearing, r apid speech, seems angry, somewhat uncooperative with history and exam when he becomes frustrate with trying to recall his history or answer my questions.
--- OUTSIDE RECORDS SUMMARY | 2024-06-04 06:23 | XMS_ITS | Encounter Summary ---
Author Organization [facility] Address 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 Gender Identity Not on file Sexual Orientation Not on file documented as of this encounter Plan of Treatment Not on file documented as of this encounter Visit Diagnoses Diagnosis Other pulmonary embolism and infarction (CMS/HCC)- Primary Other pulmonary embolism and infarction documented in this encounter Additional Health Concerns Infection Onset Date Last Indicated Resolved Time R/O COVID-19 05/20/2021 05/20/2021 05/20/2021 9:43 PM MEMBER CERTIFICATION MANAGER documented as of this encounter Care Teams Event Management Consultant Relationship Specialty Start Date End Date Jeff Harding MD [address] [facility] [place] [id number] PCP - General Internal Medicine 05/20/21 documented as of this encounter
--- OUTSIDE RECORDS SUMMARY | 2024-06-04 06:23 | XMS_ITS | Encounter Summary ---
Author Organization [facility] Address [address] [place]: Epic Prelude ADT [place] [address] Care Team Providers Care Pile Driver Name Role Phone Jeff Harding MD Primary Care Provider Encounter Details Date Type Department Care Team (Late st Contact Info) Description 10/12/2001 Outpatient Historical PLE URAL EFFUSION NOS (Primary Dx) Social History Tobacco Use Types Packs/Day Years Used Date Smoking Tobacco: Never Assessed Sex and Gender Information Value Date Recorded Sex Assigned at Not on file Legal Sex Male 4:05 AM WELLNESS RN Gender Identity Not on file Sexual Orientation Not on file documented as of this encounter Plan of Treatment Not on file documented as of this encounter Visit Diagnoses Diagnosis Unspecified pleural effusion- Primary documented in this encounter Additional Health Concerns Infection Onset Date Last Indicated Resolved Time R/O COVID-19 05/20/2021 05/20/2021 05/20/2021 9:43 PM WELLNESS RN documented as of this encounter Care Teams Pile Driver Relationship Specialty Start Date End Date Jeff Harding MD [address] [place] [phone] PCP - General Internal Medicine 05/20/21 documented as of this encounter
--- OUTSIDE RECORDS SUMMARY | 2024-06-04 06:23 | XMS_ITS | Encounter Summary ---
Author Organization [facility] Address [address] [place] [address] Care Team Providers Care Nursing Home Assistant Administrator Name Role Phone Jeff Harding MD Primary Care Provider [phone] Encounter Details Date Type Department Care Team (Late st Contact Info) Description 01/26/1999 Outpatient Historical 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
--- OUTSIDE RECORDS SUMMARY | 2024-06-04 06:23 | XMS_ITS | Encounter Summary ---
Author Organization [facility] Address [address] [place] [address] Care Team Providers Care Credit Reporter Name Role Phone Jeff Harding MD Primary Care Provider [phone] Encounter Details Date Type Department Care Team (Late st Contact Info) Description 01/18/2002 Outpatient Historical [facility] ([facility]) [address] 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
--- OUTSIDE RECORDS SUMMARY | 2024-06-04 06:23 | XMS_ITS | Encounter Summary ---
Author Organization [facility] Address [address] [place] [address] Care Team Providers Care Supervisor Stave Finishing Name Role Phone Jeff Harding MD Primary Care Provider Encounter Details Date Type Department Care Team (Latest Contact Info) Description 12/08/1997 Outpatient Historical [facility] HOU[facility] Wallace Goldsmith MD [address] [place] [address] Pneumonia, organism unspecified(486) (Primary Dx) Social History Tobacco Use Types Packs/Day Years Used Date Smoking Tobacco: Never Assessed Sex and Gender Information Value Date Recorded Sex Assigned at Not on file Legal Sex Male 3:10 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
--- OUTSIDE RECORDS SUMMARY | 2024-06-04 06:23 | XMS_ITS | Encounter Summary ---
Author Organization [facility] Address 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 Gender Identity Not on file Sexual Orientation Not on file documented as of this encounter Plan of Treatment Not on file documented as of this encounter Visit Diagnoses Diagnosis Coronary atherosclerosis of nondalton coronary artery- Primary documented in this encounter Additional Health Concerns Infection Onset Date Last Indicated Resolved Time R/O COVID-19 05/20/2021 05/20/2021 05/20/2021 9:43 PM HEALTH ANALYST documented as of this encounter Care Teams Gridcap Machine Operator Relationship Specialty Start Date End Date Jeff Harding MD [address] [place] [address] PCP - General Internal Medicine 05/20/21 documented as of this encounter
--- OUTSIDE RECORDS SUMMARY | 2024-06-04 06:23 | XMS_ITS | Encounter Summary ---
Author Organization [facility] Address 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 Gender Identity Not on file Sexual Orientation Not on file documented as of this encounter Plan of Treatment Not on file documented as of this encounter Visit Diagnoses Diagnosis Other pulmonary embolism and infarction (CMS/HCC)- Primary Other pulmonary embolism and infarction documented in this encounter Additional Health Concerns Infection Onset Date Last Indicated Resolved Time R/O COVID-19 05/20/2021 05/20/2021 05/20/2021 9:43 PM MODEL MAKER APPRENTICE documented as of this encounter Care Teams Factory Process Workers Relationship Specialty Start Date End Date Jeff Harding MD [address] [facility] [place] [place] [address] PCP - General Internal Medicine 05/20/21 documented as of this encounter
--- OUTSIDE RECORDS SUMMARY | 2024-06-04 06:23 | XMS_ITS | Encounter Summary ---
Author Organization [facility] Address 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 Gender Identity Not on file Sexual Orientation Not on file documented as of this encounter Plan of Treatment Not on file documented as of this encounter Visit Diagnoses Diagnosis Personal history of venous thrombosis and embolism- Primary documented in this encounter Additional Health Concerns Infection Onset Date Last Indicated Resolved Time R/O COVID-19 05/20/2021 05/20/2021 05/20/2021 9:43 PM MANAGER MEMBERSHIP documented as of this encounter Care Teams Yard Specialist Relationship Specialty Start Date End Date Jeff Harding MD [address] [place] [address] PCP - General Internal Medicine 05/20/21 documented as of this encounter
--- OUTSIDE RECORDS SUMMARY | 2024-06-04 06:23 | XMS_ITS | Patient Health Record ---
Author Organization [facility] Address [address] [place] [address] Care Team Providers Care Asp Developer Name Role Phone Sintia Luevano Primary Care Provider Unavailab serge SANTOS PIETRO Unavailable [phone] BOBBY LINTONIE Unavailable [phone] DIEGO PARRISH Unavailable [phone] Allergies Allergen (clinical drug ingredient) Drug/Non Drug Allergy documented on EMR Reaction Allergy Type Onset Date Status Substance with sulfonamide structure and antibacterial mechanism of action (substance) Sulfa Antibiotics Unknown Drug Allergy Active Results Component Value Reference Range Notes Urinalysis, Routine Reviewed date:04/30/2024 03:39:49 PM Interpretation: Performing Lab: Notes/Report: Urine-Color dark yellow Appearance cloudy Glucose - Bilirubin - Ketones - Specific Osgood 1.030 Occult Blood 3+ pH 5.5 Urine Protein 3+ Urobilinogen,Semi-Qn - Nitrite, Urine - WBC Esterase 2+ UBASE - Urinary Tract Infect ion (HTRx) Reviewed date:05/03/2024 10:41:32 AM Interpretation: Performing Lab:, [facility] [place], [address] [facility], Phone - [phone], Director - [id number] Notes/Report: Real-Time polymerase chain reaction (TaqMan qPCR) was utilized for detection for all tested organisms and resistance genes. Initiation of antimicrobial therapy prior to testing may affect results and can lead to the detection of non-living microorganisms. Detection of microbes must be correlated with current/recent antibiotic usage and patient signs and symptoms. Microbial sensitivity testing is not performed at this lab. Undercollar Baster to CFU/mL equivalent thresholds were established based on studies using known CFU/mL urine specimens performed at [facility] in [place], [place]. Testing performed by [facility] ([address], [place] [address]; CLIA# [id number]; Car Dispatcher Selam Avery, PhD, [facility])). This test was developed, and its performance characteristics determined by [facility]. It has not been cleared or approved [...] lugdunensis Not Detected 19.961 - 24.689 ppm Reason For Referral No Information Medications Medication SIG (Take, Route, Fr equency, [...] Status Risk Notes Problem Benign prostatic hyperplasia ([id number]) BPH (benign prostatic hyperplasia) (N40.0) Active confirmed Vital Signs Heart Rate 101 /min 04/30/2024 Blood pressure diastolic 66 mm Hg 04/30/2024 Blood pressure systolic 100 mm Hg 04/30/2024 Encounters Encounter Location Date Provider Diagnosis [employer] [employer] [address] [place] [address] 03/20/2024 [facility], [facility] [address] [place] [address] 05/03/2024 [facility], [facility] [address] [place] [address] 05/16/2024 [facility], [facility] [address] [place] [address] 04/30/2024 [facility] BPH (benign prostati c [...] antibiotics as indicated. Will request records from [place] and from his labs he said he [...] antibiotics as indicated. Will request records from [place] and from his labs he said he [...] antibiotics as indicated. Will request records from [place] and from his labs he said he had drawn last week. Will add medications if we need to but regardless he needs cystoscopy to r/o prostate obstruction and/or suprapubic tube placement if he is an elective surgical candidate. Either way, he is very upset with catheter management of his retention. Plan Of Treatment Next Appt Details Provider Name:PIETRO Clark, 06/11/2024 11:00:00 AM, [address] [place], [address], Insurance Providers Payer Name Payer Address Payer Phone Subscriber Number Group Number Insured Name Patient Relationship to Insured Coverage Start Date Coverage End Date [employer] [address] [place], [place] [id number] Ghassan Kline Self - patient is the insured Medical (General) History Medical History History ICD Code bad eye afib heart issues diabetes Surgical History Surgery Date(Month/Year) cataract sx 2 neck surgeries collar bone broken heart ablations cardiac stents knee surgeries both hip replacement left neuropathy Hospitalization History Reason Date(Month/Year) see surgeries
--- OUTSIDE RECORDS SUMMARY | 2024-06-04 06:23 | XMS_ITS | Clinical Summary ---
Author Organization [facility] [place] Address [address] [place] [address] Care Team Providers Care Dials Supervisor Name Role Phone Jeff Harding MD Primary Care Provider [phone] Allergies Active Allergy Reactions Criticality Noted Date Comments Amiodarone Other (See Comments) 08/31/2018 Scars lungs Sulfa (Sulfonamide Antibiotics) Other (See Comments) 08/23/2012 Acute kidney failure Medications acetaminophen/d iphenhydramine (DIPHENHYDRAMIN E-ACETAMINOPHEN ORAL) Take 1 Tablet by mouth daily at bedtime. Active melatonin 10 mg Capsule daily. 1 Active insulin glargine,hum.re c.anlog (LANTUS U-100 INSULIN SUBCUT) Inject 70 Units by subcutaneous injection daily. Active insulin aspart U-100 (NovoLOG) 100 unit/mL pen syringe daily. 0 Active ASPIRIN LOW DOSE ORAL Take 81 mg by mouth daily. Active METOPROLOL TARTRATE ORAL 100 mg 2 times daily. 2 Active allopurinoL (ZYLOPRIM) 300 mg tablet Take 300 mg by mouth daily. Active allopurinoL (ZYLOPRIM) 100 mg tablet daily. 2 Active atorvastatin (LIPITOR) 20 mg tablet daily. 1 Active baclofen (LIORESAL) 10 mg tablet Take 5-10 mg by mouth daily. 0 Active Blood-Glucose Meter,Continuou s (Dexcom G6 Lump Roller) daily. 0 Active clotrimazole-be tamethasone (LOTRISONE) 1-0.05 % Cream 1 time daily as needed. 9 Active glucose 4 gram Tablet, Chewable 1 time daily as needed. Active diphenhydrAMINE (BENADRYL) 25 mg capsule 1 time daily as needed. 2 Active furosemide (LASIX) 80 mg tablet 2 times daily. 2 Active gemfibroziL (LOPID) 600 mg tablet 2 times daily. 2 Active glipiZIDE (GLUCOTROL) 5 mg tablet 2 times daily. 2 Active acetaminophen (TYLENOL) 500 mg tablet Take 2 Tablets (1,000 mg) by mouth every 8 hours. 2 Active polyethylene glycol (MIRALAX) 17 gram Powder in Packet Take 1 Packet (17 Grams) by mouth 1 time daily as needed for Constipation. 2 Active oxyCODONE (ROXICODONE) 5 mg tabletIndicatio ns:Closed fracture of neck of left femur, initial encounter ([facility]) Take 1 Tablet (5 mg) by mouth every 4 hours as needed for Pain. Max Daily Amount: 30 mg 40 Tablet 05/24/2021 3:46 PM CDT 2 Active enoxaparin (LOVENOX) 40 mg/0.4 mL injection Inject 0.4 mL (40 mg) by subcutaneous injection every 24 hours. Continue until INR is 1.8 or greater, then stop. 7 Each 2 Active DIPHENHYDRAMINE HCL ORAL Take 25 mg by mouth daily at bedtime. Active traMADoL (ULTRAM) 50 mg tablet Take 50-100 mg by mouth every 6 hours as needed. 0 Active terazosin (HYTRIN) 1 mg capsule 1 mg. 1 Active sildenafiL (VIAGRA) 100 mg tablet Take 100 mg by mouth 1 time daily as needed. Active prednisoLONE acetate (PRED FORTE) 1 % suspension INSTILL 1 DROP IN BOTH EYES TWICE A DAY FOR 7 DAYS, THEN INSTILL 1 DROP ONCE A DAY FOR 7 DAYS, THEN INSTILL 1 DROP EVERY OTHER DAY FOR 7 DAYS FOR EYES (SHAKE WELL) Active olodateroL 2.5 mcg/actuation Mist INHALE 2 INHALATIONS BY ORAL INHALATION ONCE A DAY (ADMINISTER AT THE SAME TIME EVERY DAY) FOR BREATHING 1 Active nitroglycerin (NITROSTAT) 0.4 mg Tablet, Sublingual 0.4 mg. 1 Active mometasone 200 mcg/actuation HFA Aerosol Inhaler INHALE 2 PUFFS BY ORAL INHALATION TWICE A DAY FOR BREATHING. SHAKE WELL. RINSE MOUTH OUT WITH WATER AND SPIT AFTER EACH DOSE. CLEAN MOUTHPIECE WITH DRY WIPE AFTER EVERY 7 DAYS OF USE. 1 Active lisinopriL (PRINIVIL) 20 mg tablet 10 mg. 2 Active lidocaine (XYLOCAINE) 5 % Ointment APPLY LIBERALLY TO AFFECTED AREA(S) TWICE DAILY TO HANDS FOR PAIN RELIEF 1 Active levothyroxine 150 mcg tablet 0.15 mg. 0 Active insulin regular (HUMULIN R,NOVOLIN R) 100 unit/mL vial Inject 71 Units by subcutaneous injection daily in the morning. Active hydroCHLOROthia zide 25 mg tablet 12.5 mg. 1 Active colchicine (COLCRYS) 0.6 mg tablet 0.6 mg. 1 Active budesonide-form oteroL (SYMBICORT) 160-4.5 mcg/actuation HFA Aerosol Inhaler INHALE 2 PUFFS (160/4.5MCG EA) BY ORAL INHALATION TWICE A DAY FOR BREATHING. SHAKE WELL. RINSE MOUTH AND SPIT AFTER EACH USE. Active Blood-Glucose Transmitter (Dexcom G6 Transmitter) Device Replace every 90 days. 0 Active Dexcom G6 Sensor Device USE 1 SENSOR UNDER THE SKIN EVERY TEN (10) DAYS TO MONITOR GLUCOSE READINGS 6 Each 11 2 Active empagliflozin (JARDIANCE) 25 mg tablet Take 1 Tablet (25 mg) by mouth daily in the morning. 100 Tablet 3 3 Active carvediloL (COREG) 25 mg tablet Take 1/2 (one-half) tablet by mouth twice daily 30 Tablet 11 3 Active warfarin (COUMADIN) 5 mg tablet TAKE ONE TABLET BY MOUTH WITH 1/2 OF 4 MG TABLET ON MONDAYS AND FRIDAYS (TO MAKE 7 MG TOTAL ON TUESDAY AND TUESDAY) 90 Tablet 1 3 Active warfarin (COUMADIN) 4 mg tablet TAKE ONE-HALF (2MG) TABLET BY MOUTH DAILY. TAKE WITH 5MG TABLET FOR A TOTAL OF 7MG ON MONDAYS AND FRIDAYS 30 Tablet 4 Active Active Problems Problem Noted Date Diagnosed Date S/P left hip hemiarthroplasty (05/22/21) 07/14/19 Cervical spondylosis with myelopathy and radicul opathy 12/13/2019 Personal history of DVT (deep vein thrombosis) 0 11/29/2019 History of paroxysmal supraventricular tachycard ia 11/29/2019 SUSANNE on CPAP 11/29/2019 Essential hypertension 11/29/2019 Pulmonary fibrosis 11/29/2019 COPD (chronic obstructive pulmonary disease) Hypothyroidism 11/29/2019 Gout 11/29/2019 Cervical spondylosis with myelopathy 11/29/2019 Preoperative general physical examination 2019 Tobacco use 11/29/2019 Anticoagulated on Coumadin 11/15/2019 Atrial fibrillation, unspecified type 11/15/2019 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 09/26/2019 Obesity (BMI 30.0-34.9) 09/26/2019 PVD (peripheral vascular disease) 09/26/2019 CAD (coronary atherosclerotic disease) 8 Type 2 diabetes mellitus treated with insulin Mixed hyperlipidemia 01/03/2008 Erectile dysfunction 01/03/2008 Resolved Problems Problem Noted Date Diagnosed Date Resolved Date Closed fracture of neck of left femur 05/20/2021 07/13/2021 Encounters Date Type Department Care Team Description 05/02/2024 External Device Data [facility] ABSTRACTION Provider, Abstract 04/10/2024 External Device Data [facility] ABSTRACTION Provider, Abstract from Last 3 Months Immunizations Immunization Administration Dates Next Due (ADACEL/BOOSTRIX)(10 YR UP) TDAP VACCINE, 0.5ML, IM 12/18/2007 (PNEUMOVAX 23)(50 YRS UP) PN EUMOCOCCAL POLYSACCHARIDE (PPV23) 0.5 ML, IM 03/14/2006 Influenza A (H1N1) Vaccine IM 02/03/2009 Influenza Vaccine Split 3+ Yrs IM 12/25/2008, Family History Medical History Relation Name Comments Diabetes Brother Diabetes Half-Brother Diabetes Half-Sister 1 Diabetes Half-Sister 2 Diabetes Half-Sister 3 Diabetes Mother Colon Cancer Neg Hx Relation Name Status Comments Brother Alive Father (Age 53) Half-Brother Alive Half-Sister 1 Alive Half-Sister 2 Alive Half-Sister 3 Alive Mother Social History Tobacco Use Types Packs/Day Years Used Date Smoking Tobacco: Every Day Cigarettes Smokeless Tobacco: Never Tobacco Cessation:Ready to Q uit: Not Asked; Counseling Given: Not Answered Alcohol Use Standard Drinks/Week Comments Not Currently 0 (1 standard drink = 0.6 oz pur e alcohol) Sex and Gender Information Value Date Recorded Sex Assigned at Not on file Legal Sex Male 4:05 AM CORRESPONDENCE COORDINATOR Gender Identity Not on file Sexual Orientation Not on file Last Filed Vital Signs Vital Sign Reading Time Taken Comments Blood Pressure 136/64 05/20/2022 12:48 PM CORRESPONDENCE COORDINATOR Pulse 47 05/20/2022 12:48 PM CORRESPONDENCE COORDINATOR Temperature 36.6 ??C (97.8 ??F) 05/26/2021 11:19 AM C DT Respiratory Rate 16 05/26/2021 11:19 AM CDT Oxygen Saturation 97% 05/20/2022 12:48 PM CORRESPONDENCE COORDINATOR Inhaled Oxygen Concentration - - Weight 97.5 kg (215 lb) 05/20/2022 12:48 PM CORRESPONDENCE COORDINATOR Height 180.3 cm (5' 11 ) 05/20/2022 12:48 PM CORRESPONDENCE COORDINATOR Body Mass Index 29.99 05/20/2022 12:48 PM CORRESPONDENCE COORDINATOR Plan of Treatment Health Maintenance Due Date Last Done Comments DIABETES ANNUAL RETINAL EXAM 07/26/1963 DIABETES ANNUAL FOOT EXAM 09/25/2020 09/26/2019 DIABETES MICROALBUMIN ANNUAL SCREEN 09/25/2020 09/26/2019 LDL CHOLESTEROL ANNUAL 04/22/2021 04/22/2020 COLORECTAL SCREENING 08/03/2021 08/03/2016 RSV VACCINE (60+ or ) (1 - 1-dose 75+ series) 07/26/2022 INFLUENZA VACCINE (#1) 2023 , 12/31/2021, 12/29/2020, Additional history exists [place] Preventative Visit/Annual Wellness Visit 03/14/2024 DIABETES HBA1C Q 6 MONTHS 05/22/20242023, 04/22/2020, 04/22/2020, Additional history exists DTAP/TDAP/TD VACCINES (4 - T d or Tdap) 06/08/2028 06/08/2018, 08/12/2008, 12/18/2007 PNEUMOCOCCAL VACCINE 50+ YEARS Completed 1 , 03/12/2015, 06/04/2014, Additional history exists ZOSTER VACCINE Completed 09/05/2018, 100 03/2017, 11/02/2011 Medical Devices Implanted Type Area Bushler Device Identifier Shelf Expiration Date Model / Serial / Lot Hemostatic Surgiflo 8ml W/Thrombin 2994 - [id number] Implanted:Qty : 1 on 12/13/2019 by Noe Lindsya MD Hemostatic N/A: Spine Cervical Anterior [employer] [id number] 01/11/2021 [id number] / / [id number] Sleeve Unipolar Tprd 14 +4mm [id number] - [id number] Implanted:Qty : 1 on 05/22/2021 by Arjun Contreras MD at [facility] Hip Left: Hip [employer] [id number] 12/23/2030 [id number] / / [id number] Stem Fem Polarstem 135?? 147mm Ti/Ha5 Collar Std [id number] - [id number] Implanted:Qty : 1 on 05/22/2021 by Arjun Contreras MD at [facility] Hip Left: Hip [employer] [id number] 04/20/2025 [id number] / / [id number] Head Fem Tndm Uniplr 53mm [id number] - [id number] Implanted:Qty : 1 on 05/22/2021 by Arjun Contreras MD at [facility] Hip Left: Hip [employer] [id number] 06/23/2030 [id number] / / [id number] Disc Mobi-C Crvcl 13x15 H5 [id number] - [id number] Implanted:Qty : 1 on 12/13/2019 by Noe Lindsay MD Spine N/A: Spine Cervical Anterior LDR SPINE 12/13/2023 [id number] / / [id number] Disc Mobi-C Crvcl 13x15 H5 [id number] - [id number] Implanted:Qty : 1 on 12/13/2019 by Noe Lindsay MD Spine N/A: Spine Cervical Anterior LDR SPINE 09/12/2023 [id number] / / [id number] Procedures Procedure Name Priority Date/Time Associated Diagnosis Comments LIPID PANEL Routine 04/22/2020 10:24 AM CORRESPONDENCE COORDINATOR HEMOGLOBIN A1C Routine 04/22/2020 10:24 AM CORRESPONDENCE COORDINATOR MICROALBUMIN/CREATIN INE RATIO, RANDOM UR Routine 09/26/2019 10:18 AM CDT from Last 3 Months or Most Recently Relevant to Health Maintenance Results * (ABNORMAL) HEMOGLOBIN A1C (04/22/2020 10:24 AM CORRESPONDENCE COORDINATOR) HEMOGLOBIN A1C 6.6(H) See Comment % 04/22/2020 11:28 AM CORRESPONDENCE COORDINATOR [facility] EST. AVG GLUCOSE, A1C 143 mg/dL 04/22/2020 11:28 AM CORRESPONDENCE COORDINATOR [facility] Blood Venipuncture / Unknown 04/22/2020 10:24 AM CORRESPONDENCE COORDINATOR 04/22/2020 10:33 AM CORRESPONDENCE COORDINATOR Narrative [facility] - 04/22/2020 11:28 AM CORRESPONDENCE COORDINATOR HGB A1C INTERPRETATION NORMAL: ? <5.7% PRE-DIABETES: 5.7 - 6.4% DIABETES: ? 6.5% OR GREATER Falsely low A1C measurements can occur when: 1. Anemia and/or hemolytic anemia is present. 2. Hemoglobin variants present. 3. Renal failure. 4. Transfusion of blood product in the last 120 days. ?? We recommend ordering a fructosamine test([id number]) to more accurately assess glycemic status if any of the above conditions are present. us Mallory SANTIAGO CHEMISTRY ORDERABLES Final Re sult [facility] CLIA# [id number] [address] [place] [address] * (ABNORMAL) LIPID PANEL (04/22/2020 10:24 AM CORRESPONDENCE COORDINATOR) CHOLESTEROL 151 <200 mg/dL 04/22/2020 11:00 AM [facility] TRIGLYCERIDE 348(H) <150 mg/dL 04/22/2020 11:00 AM [facility] HDL 27(L) 40 - 59 mg/dL 04/22/2020 11:00 AM [facility] LDL CALCULATED 54 <100 mg/dL 04/22/2020 11:00 AM [facility] NON-HDL CHOLESTEROL 124 <130 mg/dL 04/22/2020 11:00 AM [facility] Blood Venipuncture / Unknown 04/22/2020 10:24 AM [facility] 04/22/2020 10:33 AM [facility] Narrative [facility] - 04/22/2020 11:00 AM [facility] TOTAL CHOLESTEROL ??mg/dL ??Desirable <200 ??Borderline high 200-239 ??High >=240 TRIGLYCERIDES ??mg/dL ??Normal <150 ??Borderline high 150-199 ??High 200-499 ??Very high >=500 HDL CHOLESTEROL ??mg/dL ??Low <40 ??Normal 40-59 ??Desirable >=60 NON HDL CHOLESTEROL mg/dL ??Optimal <130 ??Near Optimal 130-159 ??Borderline High 160-189 ??Very High >=190 CALCULATED LDL mg/dL ??LDL <70, OPTIMAL if have Atherosclerotic cardiovascular disease (ASCVD) ??or intermediate or higher (>7.5%) 10 year risk of ASCVD including most adults ??with diabetes. ??LDL <100, Optimal in adult patients with low (<7.5%) 10 year ASCVD risk ??LDL 100-160, Suboptimal ??LDL >160, High ??LDL >190, Very high ATPIII Guidelines Reference Ranges for Lipid Panels (NCEP/AMA) . us Mallory SANTIAGO CHEMISTRY ORDERABLES Final Re sult [facility] CLIA# [id number] [address] [place] [address] * MICROALBUMIN/CREATININE RATIO, RANDOM UR (09/26/2019 10:18 AM CDT) MICROALBUMIN, URINE <1.2 No Reference Range mg/dL 09/26/2019 11:38 AM CDT [facility] CREATININE, URINE 43.8 40.0 - 278.0 mg/dL 09/26/2019 11:38 AM CDT [facility] Comment:Reference Range vari es with fluid intake and diet. Urine URINE SPECIMEN OBTAINED BY CLEAN CATCH PROCEDURE / Unknown Collection / Unknown 09/26/2019 10:18 AM CDT 09/26/2019 10:25 AM CDT Narrative [facility] - 09/26/2019 11:38 AM CDT Condition ? Microalbumin/Creat ratio Normal Males ? <17 Normal Females ? <25 Microalbuminuria Males ?17-299 Microalbuminuria Females ?25-299 Overt proteinuria ? >=300 Unable to calculate urine microalbumin/creatinine ratio because urine microalbumin result is outside of reportable range. us Pascale Hart MD URINE ORDERABLES Final Result [facility] CLIA# [id number] [address] [place] [address] from Last 3 Months or Most Recently Relevant to Health Maintenance Insurance [facility] [id number] * Guarantor: GHASSAN KLINE Account Type Relation to Patient Date of Phone Billing Address Personal/Family [address] [address] RX [employer] RX Member Subscriber Plan / Payer (Ef fective for All Dates) Name:Ghassan Kline Relation to Subscriber:Self Name:Ghassan Kline Payer ID:Not on file Type:RX Commercial Address: [address] [facility] [employer] [facility] [employer] Advance Directives For more information, please contact: [phone] * Full Code (Latest Code Status on File) Date Activated Date Inactivated Comments 05/22/2021 10:41 AM 05/26/2021 2:49 PM Care Teams Dials Supervisor Relationship Specialty Start Date End Date Jeff Harding MD [address] [place] [phone] PCP - General Internal Medicine 05/20/21
--- OUTSIDE RECORDS SUMMARY | 2024-06-04 06:23 | XMS_ITS | Encounter Summary ---
Author Organization [facility] Address [address] [place] [address] Care Team Providers Care Dough Mixing Machine Operator Name Role Phone Jeff Harding MD Primary Care Provider Encounter Details Date Type Department Care Team (Late st Contact Info) Description 11/15/2001 Outpatient Historical HIS MRI DEPT Hay Grimm MD [address] [facility] [address] [place] [address] OTHER LUNG DISEASE NEC (Primary Dx) Social History Tobacco Use Types Packs/Day Years Used Date Smoking Tobacco: Never Assessed Sex and Gender Information Value Date Recorded Sex Assigned at Not on file Legal Sex Male 4:05 AM DOBIE MAN Gender Identity Not on file Sexual Orientation Not on file documented as of this encounter Plan of Treatment Not on file documented as of this encounter Visit Diagnoses Diagnosis Other diseases of lung, not elsewhere classified- Primary documented in this encounter Additional Health Concerns Infection Onset Date Last Indicated Resolved Time R/O COVID-19 05/20/2021 05/20/2021 05/20/2021 9:43 PM DOBIE MAN documented as of this encounter Care Teams Dough Mixing Machine Operator Relationship Specialty Start Date End Date Jeff Harding MD [address] [place] [phone] PCP - General Internal Medicine 05/20/21 documented as of this encounter
--- OUTSIDE RECORDS SUMMARY | 2024-06-04 06:23 | XMS_ITS | Encounter Summary ---
Author Organization [facility] Address [address] [place] [address] Care Team Providers Care Scallop Cutter Machine Name Role Phone Jeff Harding MD Primary Care Provider Encounter Details Date Type Department Care Team (Latest Contact Info) Description 01/18/2002 Inpatient Historical HIS CARD [place] [address] [facility] [address] [place] [phone] Edvin Momin MD CORON ATHEROSCL [facility] CORON VESSEL (Primary Dx) Social History Tobacco Use Types Packs/Day Years Used Date Smoking Tobacco: Never Assessed Sex and Gender Information Value Date Recorded Sex Assigned at Not on file Legal Sex Male 4:05 AM OPERATOR TECHNICIAN Gender Identity Not on file Sexual Orientation Not on file documented as of this encounter Plan of Treatment Not on file documented as of this encounter Visit Diagnoses Diagnosis Coronary atherosclerosis of [place] coronary artery- Primary documented in this encounter Additional Health Concerns Infection Onset Date Last Indicated Resolved Time R/O COVID-19 05/20/2021 05/20/2021 05/20/2021 9:43 PM OPERATOR TECHNICIAN documented as of this encounter Care Teams Scallop Cutter Machine Relationship Specialty Start Date End Date Jeff Harding MD [address] [place] [address] PCP - General Internal Medicine 05/20/21 documented as of this encounter
--- OUTSIDE RECORDS SUMMARY | 2024-06-04 06:23 | XMS_ITS | Encounter Summary ---
Author Organization [facility] Address [address] [place] [address] Care Team Providers Care Reordering Clerk Name Role Phone Jeff Harding MD Primary Care Provider Encounter Details Date Type Department Care Team (Late st Contact Info) Description 09/13/2019 Ancillary Orders [facility] Centralized Scheduling [address] [place] [address] Jeff Harding MD [address] [place] [address] Social History Tobacco Use Types Packs/Day Years Used Date Smoking Tobacco: Every Day Cigarettes Alcohol Use Standard Drinks/Week Comments Yes 0 (1 standard drink = 0.6 oz pure alcohol) beer seldom very little on occasion 6 pack a year Sex and Gender Information Value Date Recorded Sex Assigned at Not on file Legal Sex Male 3:10 AM LEASING AGENT Gender Identity Not on file Sexual Orientation Not on file documented as of this encounter Plan of Treatment Not on file documented as of this encounter Visit Diagnoses Not on filedocumented in this encounter Care Teams Reordering Clerk Relationship Specialty Start Date End Date Jeff Harding MD PCP - General Emergency Medicine 08/30/18 05/06/20 documented as of this encounter
--- OUTSIDE RECORDS SUMMARY | 2024-06-04 06:23 | XMS_ITS | Encounter Summary ---
Author Organization [facility] Address [address] [place] [address] Care Team Providers Care Etiologist Name Role Phone Jeff Harding MD Primary Care Provider [phone] Encounter Details Date Type Department Care Team (Latest Contact Info) Description 02/19/1999 Inpatient Historical HIS PATIENT IN A BED Jesus Do MD [address] [facility] [address] [place], [place] [id number] [place] [address] [facility] [address] [place] [address] Coronary atherosclerosis of [place] coronary artery (Primary Dx) Social History Tobacco Use Types Packs/Day Years Used Date Smoking Tobacco: Never Assessed Sex and Gender Information Value Date Recorded Sex Assigned at Not on file Legal Sex Male 4:05 AM MANAGER PLANNING Gender Identity Not on file Sexual Orientation Not on file documented as of this encounter Plan of Treatment Not on file documented as of this encounter Visit Diagnoses Diagnosis Coronary atherosclerosis of [place] coronary artery- Primary documented in this encounter Additional Health Concerns Infection Onset Date Last Indicated Resolved Time R/O COVID-19 05/20/2021 05/20/2021 05/20/2021 9:43 PM MANAGER PLANNING documented as of this encounter Care Teams Etiologist Relationship Specialty Start Date End Date Jeff Harding MD [address] [place] [phone] PCP - General Internal Medicine 05/20/21 documented as of this encounter
--- OUTSIDE RECORDS SUMMARY | 2024-06-04 06:23 | XMS_ITS ---
Author Organization [employer] Address [address] [place] [address] Care Team Providers Care Leacher Name Role Phone Sintia Luevano Primary Care Provider PIETRO Vaughn [phone] Allergies Allergen (clinical drug ingredient) Drug/Non Drug Allergy documented on EMR Reaction Allergy Type Onset Date Status Substance with sulfonamide structure and antibacterial mechanism of action (substance) Sulfa Antibiotics Unknown Drug Allergy Active REASON FOR VISIT POS PCR Medications Medication SIG (Take, Route, Fr equency, Duration) Notes Start Date End Date Status Fluconazole 200 MG 1 tablet Orally carlin y for 14 days 05/03/2024 05/17/2024 Active levoFLOXacin 500 MG 1 tablet Orally Once a day for 14 days 05/03/2024 05/17/2024 Active Encounters Encounter Location Date Provider Diagnosis [facility] [address] [facility] [place] [address] 05/03/2024 PIETRO SANTOS Plan Of Treatment Medication Medication Name Sig Start Date Stop Date Notes Fluconazole 200 MG 1 tablet Orally daily for 14 days 05/0305/17/2024 levoFLOXacin 500 MG 1 tablet Orally Once a day for 14 days 05/03/2024 05/17/2024 Next Appt Details Provider Name:PIETRO Clark, 06/11/2024 11:00:00 AM, [address] [place], [address], Progress Notes * Ghassan KLINEDOB:[birth year] (78 yo M)Acc No.[id number]:05/03/2024 Patient:?Ghassan KLINE :1945???Age:78 Y???Sex:Male Address:[address] [place] [address], [phone] * Refills? Start levoFLOXacin Tablet, 500 MG, Orally, 14 Tablet, 1 tablet, Once a day, 14 days, Refills=0 Start Fluconazole Tablet, 200 MG, Orally, 14 Tablet, 1 tablet, daily, 14 days, Refills=0 Subjective: * Chief Complaints: * ???POS PCR * Medical History:? * Surgical History:? * Hospitalization/Major Diagno stic Procedure:? * Medications:? * Allergies:?Sulfa Antibiotics no[Allergies Verified] Objective: * Vitals:? * Physical Examination:? Assessment: Plan: * Treatment: * Procedure Codes:? * true * Date:? Generated for Destinee ochoa/Hawk/Samitting on:?06/04/2024 06:23 AM CDT
--- OUTSIDE RECORDS SUMMARY | 2024-06-04 06:23 | XMS_ITS | Encounter Summary ---
Author Organization [facility] Address [address] [place] [address] Care Team Providers Care Business Support Manager Name Role Phone Jeff Harding MD Primary Care Provider Encounter Details Date Type Department Care Team (Late st Contact Info) Description 01/01/2008 Outpatient Historical [facility] [address] [address] Bakari Choe, SALES SPECIALIST [address] [place] [address] Social History Tobacco Use Types Packs/Day Years Used Date Smoking Tobacco: Never Assessed Sex and Gender Information Value Date Recorded Sex Assigned at Not on file Legal Sex Male 3:10 AM AGRICULTURAL AGENT Gender Identity Not on file Sexual Orientation Not on file documented as of this encounter Plan of Treatment Not on file documented as of this encounter Visit Diagnoses Not on filedocumented in this encounter Care Teams Business Support Manager Relationship Specialty Start Date End Date eJff Harding MD PCP - General Emergency Medicine 08/30/18 05/06/20 documented as of this encounter
--- OUTSIDE RECORDS SUMMARY | 2024-06-04 06:23 | XMS_ITS | Clinical Summary ---
Author Organization [facility] Address [address] [address] Care Team Providers Care Senior Telecommunications Technician Name Role Phone Unavailable Primary Care Provider Unavailabl e Allergies Active Allergy Reactions Criticality Noted Date Comments Amiodarone Other (See Comments) 08/31/2018 Scars lungs Sulfa (Sulfonamide Antibiotics) Other (See Comments) 08/23/2012 Acute kidney failure Medications LOTRISONE 1-0.05 % Topical Crea Apply to affected area 2 times daily. Active nitroglycerin (NITROQUICK) 0.[address] 1 Tab under tongue every 5 minutes as needed for Chest Pain. 30 Tab 3 03/19/19 09 Active blood sugar diagnostic (BLOOD GLUCOSE TEST) Strp by See Admin Instructions route. 100 Each 2 03/24/19 10 Active Insulin Syringe-Needle U-100 (BD INSULIN SYRINGE ULT-FINE II) 1/2 mL 31 x 07/[address] [facility]Non-Drug; Combo Route) route. 90 Syringe 6 06/26/19 10 Active gemfibrozil (LOPID) 600 mg Oral tablet Take 1 Tab by mouth 2 times daily. 180 Tab 3 02/03/20 10 Active INSULIN GLARGINE,HUM.REC. ANLOG (LANTUS SUBCUT)Indication s:daily Inject 70 Units by subcutaneous injection Daily in AM. Active furosemide (LASIX) 40 mg Oral tablet Take 80 mg by mouth 2 times daily . Active terazosin (HYTRIN) 1 mg Oral capsule Take 1 mg by mouth daily at bedtime. Active levothyroxine 150 mcg tablet Take 150 mcg by mouth daily terrazzo grinder . Active insulin regular (HUMULIN R,NOVOLIN R) 100 unit/mL vialIndications:p er sliding scale Inject 71 Units by subcutaneous injection daily terrazzo grinder. Active melatonin 5 mg Tablet Take 10 mg by mouth daily at bedtime. Active ACETAMINOPHEN/DIP HENHYDRAMINE (TYLENOL PM ORAL) Take 1 Tablet by mouth daily at bedtime. As needed Active colchicine (Colcrys) 0.6 mg tablet Take 0.6 mg by mouth daily. Active allopurinoL (ZYLOPRIM) 300 mg tablet Take 300 mg by mouth daily Daily in morning and 100 mg at night . Active glipiZIDE (GLUCOTROL) 5 mg tablet Take 5 mg by mouth 2 times daily with meals. Active DIPHENHYDRAMINE HCL ORAL Take 25 mg by mouth daily at bedtime. At PM Active ASPIRIN LOW DOSE ORAL Take 81 mg by mouth daily. Active lisinopriL (PRINIVIL) 20 mg tablet TAKE ONE-HALF TABLET BY MOUTH ONCE A DAY FOR HEART OR BLOOD PRESSURE Active metoprolol tartrate (LOPRESSOR) 100 mg tablet TAKE ONE TABLET BY MOUTH TWICE A DAY FOR HEART/BLOOD PRESSURE. TAKE WITH OR IMMEDIATELY FOLLOWING FOOD. Active glucose 4 gram Tablet, Chewable CHEW AND SWALLOW FIVE TABLETS BY MOUTH FOUR TIMES A DAY NEEDED FOR LOW BLOOD SUGAR. REPEAT DOSE IF HYPOGLYCEMIA CONTINUES 15 MINUTES AFTER THE FIRST DOSE. Active prednisoLONE acetate (PRED FORTE) 1 % suspension INSTILL 1 DROP IN BOTH EYES TWICE A DAY FOR 7 DAYS, THEN INSTILL 1 DROP ONCE A DAY FOR 7 DAYS, THEN INSTILL 1 DROP EVERY OTHER DAY FOR 7 DAYS FOR EYES (SHAKE WELL) Active budesonide-formot Lillian (SYMBICORT) 160-4.5 mcg/actuation HFA Aerosol Inhaler INHALE 2 PUFFS (160/4.5MCG EA) BY ORAL INHALATION TWICE A DAY FOR BREATHING. SHAKE WELL. RINSE MOUTH AND SPIT AFTER EACH USE. Active atorvastatin (LIPITOR) 20 mg tablet TAKE ONE-HALF TABLET BY MOUTH EVERY EVENING FOR CHOLESTEROL. REPORT ANY UNEXPLAINED MUSCLE PAIN/WEAKNESS TO PROVIDER THIS TABLET IS TO BE CUT IN HALF FOR YOUR DOSE Active sildenafiL (VIAGRA) 100 mg tablet Take 100 mg by mouth 1 time daily as needed for Erectile Dysfunction. Active traMADoL (ULTRAM) 50 mg tabletIndications :S/P cervical discectomy Take 1-2 Tablets (50-100 mg) by mouth every 6 hours as needed for Pain. 45 Tablet 12/27/19 20 Active Blood-Glucose Transmitter (Dexcom G6 Transmitter) Device Replace every 90 days. 1 Each 3 01/02/20 Active Blood-Glucose Meter,Continuous (Dexcom G6 Screw Eye Assembler) Use to monitor BG. 1 Each 01/02/20 20 Active carvediloL (COREG) 25 mg tablet Take 0.5 Tablets (12.5 mg) by mouth 2 times daily. 90 Tablet 3 01/07/20 20 Active HYDROcodone-aceta minophen (NORCO) 5-325 mg tabletIndications :S/P cervical discectomy,Cervic al spondylosis with myelopathy and radiculopathy Take 1 Tablet by mouth every 4 hours as needed for Pain, Moderate. Max Daily Amount: 6 Tablets 42 Tablet 02/05/20 20 Active baclofen (LIORESAL) 10 mg tabletIndications :S/P cervical discectomy Take 1/2 to 1 Tablet (5-10 mg) by mouth 3 times daily. 60 Tablet 1 02/05/20 Active insulin aspart U-100 (NovoLOG) 100 unit/mL pen syringe INJECT 10 UNITS UNDER THE SKIN THREE TIMES A DAY BEFORE MEALS FOR BLOOD SUGAR CONTROL. ADMINISTER 10 MINUTES BEFORE FOOD DIRECTED. REFRIGERATE UN-OPENED PENS. DISCARD CARTRIDGE 28 DAYS AFTER OPENING. 05/30/19 20 Active levothyroxine 150 mcg tablet TAKE ONE TABLET BY MOUTH EVERY MORNING BEFORE A MEAL FOR THYROID. TAKE 30 MINUTES BEFORE FOOD. TAKE SEPARATELY FROM ALL OTHER MEDICATIONS. 06/18/19 20 Active warfarin (Coumadin) 5 mg tabletIndications :5mg 4 days a week 7mg 3 days a week Take 1 Tablet (5 mg) by mouth daily. Except take 7 mg on Tuesday and Tuesday. 90 Tablet 1 06/06/19 21 Active Blood-Glucose Sensor (Dexcom G6 Sensor) Device Replace every 10 days. 9 Each 3 08/13/19 Active Active Problems Problem Noted Date Diagnosed Date Cervical spondylosis with myelopathy and radicul opathy [...] atherosclerotic disease) 8 Type 2 diabetes mellitus wit h hyperglycemia, with long-term current use of insulin 01/03/2008 Mixed hyperlipidemia 01/03/2008 Erectile dysfunction 01/03/2008 Resolved Problems Problem Noted Date Diagnosed Date Resolved Date Atrial fibrillation 01/03/2008 09/26/19 20 Immunizations Immunization Administration Dates Next Due (ADACEL/BOOSTRIX)(10 [...] Tobacco: Every Day Cigarettes Smokeless Tobacco: Never Alcohol Use Standard Drinks/Week Comments Yes 0 (1 standard drink = 0.6 oz pur e alcohol) maybe 1 beer per year Sex and Gender Information Value Date Recorded Sex Assigned at Not on file Legal Sex Male 3:10 AM WASTE SPECIALIST Gender Identity Not on file Sexual Orientation Not on file Last Filed Vital Signs Vital Sign Reading Time Taken Comments Blood Pressure 123/67 05/23/2020 1:20 PM WASTE SPECIALIST Pulse 68 05/23/2020 1:20 PM WASTE SPECIALIST Temperature 36.5 ??C (97.7 ??F) 05/06/2020 10:[address] Respiratory Rate 16 12/14/2019 9:12 AM CDT Oxygen Saturation 89% 05/06/2020 10:52 AM WASTE SPECIALIST Inhaled Oxygen Concentration - - Weight 103.4 kg (228 lb) 05/23/2020 1:20 PM WASTE SPECIALIST Height 179.1 cm (5' 10.5 ) 05/23/2020 1:20 PM CS T Body Mass Index 32.25 05/23/2020 1:20 PM WASTE SPECIALIST Plan of Treatment Health Maintenance Due Date Last Done Comments DIABETES ANNUAL RETINAL EXAM 07/26/1965 ZOSTER VACCINE (1 of 2) 07/26/1997 DIABETES ANNUAL FOOT EXAM 09/25/2020 09/26/2019 DIABETES MICROALBUMIN ANNUAL SCREEN 09/25/2020 09/26/2019, 07/30/2009, 03/19/2008, Additional history exists DIABETES HBA1C Q 6 MONTHS 10/20/20202020, 01/17/2020, 09/26/2019, Additional history exists LDL CHOLESTEROL ANNUAL 04/22/2021 , 03/28/2009, 09/11/2007, Additional history exists COLORECTAL SCREENING 08/03/2021 08/03/2016 RSV VACCINE (60+ or ) (1 - 1-dose 75+ series) 07/26/2022 INFLUENZA VACCINE (#1) 2023 6, 12/25/2008, 01/01/2008 DTAP/TDAP/TD VACCINES (3 - T d or Tdap) 06/08/2028 06/08/2018, 12/18/2007 PNEUMOCOCCAL VACCINE 50+ YEARS Completed 1 , 06/04/2014, 03/14/2006 Medical Devices Implanted Type Area Park Aide Device Identifier Shelf Expiration Date Model / Serial / Lot Hemostatic Surgiflo 8ml W/Thrombin 2994 - [id number] Implanted:Qty: 1 on 12/13/2019 by Noe Lindsay MD at [facility] Hemostatic N/A: Spine Cervical Anterior [employer] [id number] 01/11/2021 [id number] / / [id number] Disc Mobi-C Crvcl 13x15 H5 [id number] - [id number] Implanted:Qty: 1 on 12/13/2019 by Noe Lindsay MD at [facility] Gold Spine N/A: Spine Cervical Anterior LDR SPINE 12/13/2023 [id number] / / [id number] Disc Mobi-C Crvcl 13x15 H5 [id number] - [id number] Implanted:Qty: 1 on 12/13/2019 by Noe Lindsay MD at [facility] Spine N/A: Spine Cervical Anterior LDR SPINE 09/12/2023 [id number] / / [id number] Procedures Procedure Name Priority Date/Time Associated Diagnosis Comments LIPID PANEL Routine 04/22/2020 10:24 AM WASTE SPECIALIST Type 2 diabetes mellitus with hyperglycemia, with long-term current use of insulin ([facility]) HEMOGLOBIN A1C Routine 04/22/2020 10:24 AM WASTE SPECIALIST Type 2 diabetes mellitus with hyperglycemia, with long-term current use of insulin ([facility]) MICROALBUMIN/CREATI NINE RATIO, RANDOM UR Routine 09/26/2019 10:18 AM CDT Uncontrolled type 2 diabetes mellitus with hyperglycemia ([facility]) 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 AVG GLUCOSE, A1C 143 mg/dL 04/22/2020 11:28 AM [facility] Blood Venipuncture / Unknown 04/22/2020 10:24 AM WASTE SPECIALIST 04/22/2020 10:33 AM WASTE SPECIALIST Narrative [facility] - 04/22/2020 11:28 AM WASTE SPECIALIST HGB A1C INTERPRETATION NORMAL: ? <5.7% PRE-DIABETES: 5.7 - 6.4% DIABETES: ? 6.5% OR GREATER Falsely low A1C measurements can occur when: 1. Anemia and/or hemolytic anemia is present. 2. Hemoglobin variants present. 3. Renal failure. 4. Transfusion of blood product in the last 120 days. ?? We recommend ordering a fructosamine test([id number]) to more accurately assess glycemic status if any of the above conditions are present. us Mallory SANTIAGO CHEMISTRY ORDERABLES Final Re sult [facility] CLIA# [id number] [facility] [place] [address] * (ABNORMAL) LIPID PANEL (04/22/2020 10:24 AM WASTE SPECIALIST) CHOLESTEROL 151 <200 mg/dL 04/22/2020 11:00 AM [facility] TRIGLYCERIDE 348(H) <150 mg/dL 04/22/2020 11:00 AM [facility] HDL 27(L) 40 - 59 mg/dL 04/22/2020 11:00 AM [facility] LDL CALCULATED 54 <100 mg/dL 04/22/2020 11:00 AM [facility] NON-HDL CHOLESTEROL 124 <130 mg/dL 04/22/2020 11:00 AM [facility] Blood Venipuncture / Unknown 04/22/2020 10:24 AM WASTE SPECIALIST 04/22/2020 10:33 AM [facility] Narrative [facility] - 04/22/2020 11:00 AM WASTE SPECIALIST TOTAL CHOLESTEROL ??mg/dL ??Desirable <200 ??Borderline high [...] Mallory SANTIAGO CHEMISTRY ORDERABLES Final Re sult [facility]# [id number] [address] [place] [address] * MICROALBUMIN/CREATININE RATIO, RANDOM UR (09/26/2019 10:18 AM CDT) MICROALBUMIN, URINE <1.2 No Reference Range mg/dL 09/26/2019 11:38 AM CDT [facility] CREATININE, URINE 43.8 40.0 - 278.0 mg/dL 09/26/2019 11:38 AM CDT [facility] Comment:Reference Range vari es with fluid intake and diet. Urine URINE SPECIMEN OBTAINED BY CLEAN CATCH PROCEDURE / Unknown Collection / Unknown 09/26/2019 10:18 AM CDT 09/26/2019 10:25 AM CDT Narrative [facility] - 09/26/2019 11:38 AM CDT Condition ? Microalbumin/Creat ratio Normal Males ? <17 Normal Females ? <25 Microalbuminuria Males ?17-299 Microalbuminuria Females ?25-299 Overt proteinuria ? >=300 Unable to calculate urine microalbumin/creatinine ratio because urine microalbumin result is outside of reportable range. us Pascale Hart MD URINE ORDERABLES Final Result [facility]# [id number] [address] [place] [address] from Last 3 Months or Most Recently Relevant to Health Maintenance Insurance RX [employer] RX Member Subscriber Plan / Payer (Ef fective for All Dates) Name:Ghassan Kline Relation to Subscriber:Self Name:GHASSAN KLINE Payer ID:Not on file Type:RX Commercial Address: [place], [place] [employer] [place] [employer] Advance Directives For more information, please contact: [phone] * Full Code (Latest Code Status on File) Date Activated Date Inactivated Comments 12/13/2019 5:36 PM 12/14/2019 2:20 PM * Full Code Date Activated Date Inactivated Comments 12/13/2019 7:04 AM 12/13/2019 5:36 PM * Full Code Date Activated Date Inactivated Comments 12/13/2019 5:45 AM 12/13/2019 7:04 AM * Full Code Date Activated Date Inactivated Comments 08/03/2016 1:43 PM 08/03/2016 4:38 PM
--- OUTSIDE RECORDS SUMMARY | 2024-06-04 06:23 | XMS_ITS | Encounter Summary ---
Author Organization [facility] Address [address] [place] [address] Care Team Providers Care Brush Loader And Handle Attacher Name Role Phone Jeff Harding MD Primary Care Provider Encounter Details Date Type Department Care Team (Late st Contact Info) Description 09/13/2019 Ancillary Orders [facility] Centralized Scheduling [address] [place] [address] Eugene Menard MD [address] [place] [address] Cervical pain Social History Tobacco Use Types Packs/Day Years Used Date Smoking Tobacco: Every Day Cigarettes Alcohol Use Standard Drinks/Week Comments Yes 0 (1 standard drink = 0.6 oz pure alcohol) beer seldom very little on occasion 6 pack a year Sex and Gender Information Value Date Recorded Sex Assigned at Not on file Legal Sex Male 3:10 AM 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
--- OUTSIDE RECORDS SUMMARY | 2024-06-04 06:23 | XMS_ITS | Encounter Summary ---
Author Organization [facility] Address [address] [place] [address] Care Team Providers Care Guideman Name Role Phone Jeff Harding MD Primary Care Provider [phone] Reason for Referral * MRI (Routine) - Closed Specialty Diagnoses / Procedures Referred By Contac t Referred To Contact Radiology Diagnoses Abnormal findings on diagnostic imaging of other specified body structures Procedures MRI ABDOMEN W WO CONTRAST Jeff Harding MD Phone: tel: fax: [facility] [address] [address] Phone: tel: fax: Referral ID Status Reason Start Date Expiration Date V isits Requested Visits Authorized [id number] Closed [facility] TO SCHEDULE (SGF) 08/22/2018 10/09/2018 1 1 Encounter Details Date Type Department Care Team (Late st Contact Info) Description 08/22/2018 Ancillary Orders [facility] Pre-Registration [place] CALL TO MAKE APPOINTMENT ONLY [address] [place] [address] Jeff Harding MD [address] [place] [address] Abnormal findings on diagnostic imaging of other specified body structures Social History Tobacco Use Types Packs/Day Years Used Date Smoking Tobacco: Every Day Cigarettes Alcohol Use Standard Drinks/Week Comments Yes 0 (1 standard drink = 0.6 oz pure alcohol) beer seldom very little on occasion 6 pack a year Sex and Gender Information Value Date Recorded Sex Assigned at Not on file Legal Sex Male 3:10 AM PARARESCUE MANAGER Gender Identity Not on file Sexual Orientation Not on file documented as of this encounter Plan of Treatment Not on file documented as of this encounter Results * MRI ABDOMEN W WO CONTRAST (08/31/2018 4:27 PM CDT) Anatomical Region Laterality Modality Abdomen Magnetic Resonan ce, Other 08/31/2018 4:27 PM CDT Impressions 09/01/2018 8:01 AM CDT IMPRESSION: Please see below. Exam: MRI ABDOMEN W WO CONTRAST Date/Time of Exam: 08/31/2018 4:27 PM Reason For Exam: See Diagnosis. Diagnosis: Abnormal findings on diagnostic imaging of other specified body structures. Technique: MRI of the abdomen was performed prior to and following the administration of intravenous contrast. Contrast: 20 mL MultiHance Findings: Evaluation limited by marked respiratory degradation with severe artifacts present. Liver is enlarged and there is diffuse fatty infiltration of the liver. No focal liver lesion is visualized. The gallbladder contains calculi. There is no evidence of biliary dilatation. The pancreas and spleen are unremarkable. There is bilateral lobulated enlargement of the adrenal glands, greater on the left with signal characteristics consistent with changes of adenomatous hyperplasia/adenomata. The right adrenal nodule measures up to 1.6 x 1.4 cm. The largest lobulation of the left adrenal gland measures 3.7 x 2.2 cm. The pancreas is unremarkable. There are subcentimeter renal cortical cysts. No ascites or lymphadenopathy. Small sliding hiatal hernia. Colonic diverticulosis. IMPRESSION: Evaluation limited by marked respiratory degradation. Hepatomegaly with marked fatty infiltration of the liver. Cholelithiasis. Adenomatous changes of the adrenal glands. [id number] ? Narrative Procedure Note Jeromy Dooley MD - 09/01/2018 IMPRESSION: Please see below. Exam: MRI ABDOMEN W WO CONTRAST Date/Time of Exam: 08/31/2018 4:27 PM Reason For Exam: See Diagnosis. Diagnosis: Abnormal findings on diagnostic imaging of other specified body structures. Technique: MRI of the abdomen was performed prior to and following the administration of intravenous contrast. Contrast: 20 mL MultiHance Findings: Evaluation limited by marked respiratory degradation with severe artifacts present. Liver is enlarged and there is diffuse fatty infiltration of the liver. No focal liver lesion is visualized. The gallbladder contains calculi. There is no evidence of biliary dilatation. The pancreas and spleen are unremarkable. There is bilateral lobulated enlargement of the adrenal glands, greater on the left with signal characteristics consistent with changes of adenomatous hyperplasia/adenomata. The right adrenal nodule measures up to 1.6 x 1.4 cm. The largest lobulation of the left adrenal gland measures 3.7 x 2.2 cm. The pancreas is unremarkable. There are subcentimeter renal cortical cysts. No ascites or lymphadenopathy. Small sliding hiatal hernia. Colonic diverticulosis. IMPRESSION: Evaluation limited by marked respiratory degradation. Hepatomegaly with marked fatty infiltration of the liver. Cholelithiasis. Adenomatous changes of the adrenal glands. [id number] Jeff Harding MD MR ORDERABLES Final Result documented in this encounter Visit Diagnoses Diagnosis Abnormal findings on diagnostic imaging of other specified body structures Abnormal findings on diagnostic imaging of other specified body structures documented in this encounter Care Teams Guideman Relationship Specialty Start Date End Date Jeff Harding MD PCP - General Emergency Medicine 08/30/18 05/06/20 documented as of this encounter
--- OUTSIDE RECORDS SUMMARY | 2024-06-04 06:24 | XMS_ITS | Encounter Summary ---
Author Organization [facility] Address [address] [place] [address] Care Team Providers Care Silver Buffer Name Role Phone Jeff Harding MD Primary Care Provider Encounter Details Date Type Department Care Team (Latest Contact Info) Description 12/18/2007 Outpatient Historical [facility] [address] [place] [address] Heladio Coyne MD [address] [place] [address] Atrial Fibrillation (CMS/HCC) Social History Tobacco Use Types Packs/Day Years Used Date Smoking Tobacco: Never Assessed Sex and Gender Information Value Date Recorded Sex Assigned at Not on file Legal Sex Male 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 Coyne for PT/INR regulation documented in this encounter Plan of Treatment Not on file documented as of this encounter Procedures Procedure Name Priority Date/Time Associated Diagnosis Comments PROTIME-INR Routine 12/18/2007 5:10 PM CDT documented in this encounter Results * (ABNORMAL) PROTIME-INR (12/18/2007 5:10 PM CDT) PROTIME 21.6(H) 12.8 - 15.8 Secs [facility] Comment:As of 2007 not e change in normal range. INR 1.7 [facility] Comment: Expected Values for INR: DVT/PE ?Goal INR 2.5; range 2.0 - 3.0 Valve Replacement ? Tissue ? Goal INR 2.5; range 2.0 - 3.0 ? Mechanical ?Goal INR 3.0; range 2.5 - 3.5 POST-NY ?Goal INR 2.5; range 2.0 - 3.0 ??or Goal 3.0; range 2.5 - 3.5 Atrial Fibrillation ?Goal INR 2.5; range 2.0 - 3.0 Ischemic Stroke ?Goal INR 2.5; range 2.0 - 3.0 For additional information see Guidelines for Anticoagulation available from the pharmacy Peggy Ferguson D. ??[phone] Blood specimen (specimen) 12/18/2007 5:10 PM CDT 12/18/2007 10:03 PM CDT us Heladio Coyne MD HEMATOLOGY ORDERABLES Final R esult INTERFACE SYSTEM Refer to clinic/hospital department [facility] CLIA# [id number] [facility] [place] [address] documented in this encounter Visit Diagnoses Diagnosis Atrial fibrillation (CMS/HCC) Atrial fibrillation documented in this encounter Care Teams Silver Buffer Relationship Specialty Start Date End Date Jeff Harding MD [phone] (work) PCP - General Emergency Medicine 08/30/18 05/06/20 documented as of this encounter
--- OUTSIDE RECORDS SUMMARY | 2024-06-04 06:24 | XMS_ITS | Encounter Summary ---
Author Organization [facility] Address [address] [place] [address] Care Team Providers Care Classified Copy Control Clerk Name Role Phone Jeff Harding MD Primary Care Provider Encounter Details Date Type Department Care Team (Late st Contact Info) Description 04/19/2007 Outpatient Historical [facility] ([facility] Family Medicine [address] [phone] Social History Tobacco Use Types Packs/Day Years Used Date Smoking Tobacco: Never Assessed Sex and Gender Information Value Date Recorded Sex Assigned at Not on file Legal Sex Male 3:10 AM BEAUTY SHOP MANAGER Gender Identity Not on file Sexual Orientation Not on file documented as of this encounter Plan of Treatment Not on file documented as of this encounter Procedures Procedure Name Priority Date/Time Associated Diagnosis Comments PROTIME-INR Routine 05/16/2007 8:18 AM BEAUTY SHOP MANAGER HEMOGLOBIN A1C Routine 05/16/2007 8:18 AM BEAUTY SHOP MANAGER COMPREHENSIVE METABOLIC PANEL Routine 05/16/2007 8:18 AM BEAUTY SHOP MANAGER documented in this encounter Results * (ABNORMAL) PROTIME-INR (05/16/2007 8:18 AM BEAUTY SHOP MANAGER) PROTIME 26.1(H) 11.8 - 14.4 SEC [facility] INR 2.3 [facility] 05/16/2007 8:18 AM BEAUTY SHOP MANAGER 05/16/2007 8:38 AM BEAUTY SHOP MANAGER Solo Arthur MD HEMATOLOGY ORDERABLES Final Result [facility] CLIA# [id number] [address] [place] [address] * (ABNORMAL) HEMOGLOBIN A1C (05/16/2007 8:18 AM BEAUTY SHOP MANAGER) HEMOGLOBIN A1C 7.5(H) 4.0 - 6.0 % [facility] 05/16/2007 8:18 AM BEAUTY SHOP MANAGER 05/16/2007 8:38 AM BEAUTY SHOP MANAGER Solo Arthur MD CHEMISTRY ORDERABLES Final R esult Performing Organization Address City/[facility] Co de Phone Number [facility] CLIA# [id number] [facility] [place] [address] * (ABNORMAL) COMPREHENSIVE METABOLIC PANEL (05/16/2007 8:18 AM BEAUTY SHOP MANAGER) GLUCOSE 134(H) 70 - 100 MG/DL [facility] GLUCOSE Reference interval only valid for fasting specimens [facility] BUN 26(H) 6 - 20 MG/DL [facility] CREATININE 1.0 0.5 - 1.2 MG/DL [facility] SODIUM 138 134 - 145 MEQ/L [facility] POTASSIUM 4.3 3.5 - 5.1 MEQ/L [facility] CHLORIDE 100 96 - 108 MEQ/L [facility] CO2 25 22 - 32 MMOL/L [facility] CALCIUM 9.6 8.5 - 10.6 MG/DL [facility] TOTAL PROTEIN 7.5 5.9 - 8.2 G/DL [facility] ALBUMIN 4.5 3.4 - 4.8 G/DL [facility] AST 24 12 - 43 IU/L [facility] ALT 21 4 - 51 IU/L [facility] ALKALINE PHOSPHATASE 80 40 - 129 IU/L [facility] BILIRUBIN TOTAL 0.5 0.2 - 1.0 MG/DL [facility] ANION GAP 17 9 - 20 MEQ/L [facility] GLOBULIN (CALC) 3.0 2.4 - 3.9 G/DL [facility] ALBUMIN/GLOBULI N RATIO 1.5 1.0 - 2.3 RATIO [facility] OSMOLALITY, CALCULATED 291 275 - 295 MOSM/KG [facility] GFR >60 >60 mL/min/1. 73m [facility] K[facility] GFR, >60 >60 mL/min/1. 73m [facility] K[facility]IE 05/16/2007 8:18 AM BEAUTY SHOP MANAGER 05/16/2007 8:38 AM BEAUTY SHOP MANAGER us Solo Arthur MD CHEMISTRY ORDERABLES Final R esult [facility] CLIA# [id number] [address] [place] [address] documented in this encounter Visit Diagnoses Not on filedocumented in this encounter Care Teams Classified Copy Control Clerk Relationship Specialty Start Date End Date Jeff Harding MD PCP - General Emergency Medicine 08/30/18 05/06/20 documented as of this encounter
--- OUTSIDE RECORDS SUMMARY | 2024-06-04 06:24 | XMS_ITS | Continuity of Care Document ---
Author Organization [employer] ([facility]) Address [address] [place] [address] Insurance Providers Payer Plan Claims Address Claims Phone Policy Number Group Number Relation Employer Guarantor Name Guarantor Guarantor Address Guarantor Phone RX [employer] JUAN DAVID PRESLEY tel:[phone] [id number] Eliazar Kline [address] [place] [address] UNITAjit LOJA [facility] [id number] [address] [address], [place] [address] tel:[phone] Eliazar Kline [address] [place] [address] HUMAN A GOLD CHOIC E [facility] [address] [address], [place] [address] [id number] Eliazar Kline [address] [place] [address] Problems Condition ICD9 code ICD10 code SNOMED code Start Date End Date S tatus Hypertensive heart and chronic kidney disease with heart failure and stage 1 through stage 4 chronic kidney disease, or unspecified chronic kidney disease I13.0 05/31/2024 Active Heart failure, unspecified I50.9 05/31/2024 Active Atherosclerotic heart disease of [place] coronary artery without angina pectoris I25.10 05/31/2024 Active 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 05/31/2024 Active Unspecified atrial fibrillation I48.91 05/31/2024 Active 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 Z79.82 05/31/2024 Active Ischemic cardiomyopathy I25.5 05/31/2024 Active Type 2 diabetes mellitus with diabetic peripheral angiopathy without gangrene E11.51 05/31/2024 Active Type 2 diabetes mellitus with diabetic neuropathy, unspecified E11.40 05/31/2024 Active Type 2 diabetes mellitus with diabetic chronic kidney disease E11.22 05/31/2024 Active 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 teacher (current) use of oral hypoglycemic drugs Z79.84 05/31/2024 Active Chronic obstructive pulmonary disease, unspecified J44.9 05/31/2024 Active 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 teacher (current) use of inhaled steroids Z79.51 05/31/2024 Activ e Tobacco use Z72.0 05/31/2024 Active Other spondylosis, cervical region M47.892 05/31/2024 Active Spinal stenosis, cervical region M48.02 05/31/2024 Active Radiculopathy, cervical region M54.12 05/31/2024 Active Bilateral primary osteoarthritis of hip M16.0 05/31/2024 Act kemi Chronic kidney disease, stage 4 (severe) N18.4 05/31/2024 Active Unspecified severe protein-calorie malnutrition E43 05/31/2024 Active Adult failure to thrive R62.7 05/31/2024 Active Hypothyroidism, unspecified E03.9 05/31/2024 Active Personal history of pulmonary embolism Z86.711 05/31/2024 Active Personal history of other venous thrombosis and embolism Z86.718 05/31/2024 Active 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 teacher (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) use of anticoagulants Z79.01 05/31/2024 Active Unvaccinated for COVID-19 Z28.310 05/31/2024 Active Do not resuscitate Z66 05/31/2024 Ac tive Results No Results Allergies, adverse reactions, alerts Substance Reaction Date Status Type gabapentin 05/31/2024 Non Drug Adhesive 05/31/2024 Non Drug Sulfonamides (Sulfa) 05/31/2024 Non Drug amiodarone 05/31/2024 Non Drug Immunizations Vaccine Route Date Status RSV Vaccine Unassigned Route of Administration 2024 Refused Medications Medication Instructions Route Dosage Frequency Start Date Stop Date Indications Status acetaminophen 650 mg tablet extended release (acetaminophen) 1 tab, oral, Every 12 Hours oral 1.0 12.0 h 2024 Active aspirin 81 mg tablet,delayed release (DR/EC) (aspirin) 1 tab, oral, Once A Day oral 1.0 1.0 d 2024 Active atorvastatin 10 mg tablet (atorvastatin) 1 tab, oral, Once A Day oral 1.0 1.0 d 2024 Active Breztri Aerosphere (budesonide-gly copyr-formotero l) 160-9-4.8 mcg/actuation HFA aerosol inhaler (Breztri Aerosphere (budesonide-gly copyr-formotero l)) 2 puffs, inhalation, Twice A Day, Rinse mouth with water and spit after each use. inhalation 1.0 12.0 h 2024 Active carvedilol 6.25 mg tablet (carvedilol) 1 tab, oral, Twice A Day, at 7:30am and 5:30pm oral 1.0 12.0 h 2024 Active cholecalciferol (vitamin D3) 25 mcg (1,000 unit) tablet (cholecalcifero l (vitamin D3)) 1 tab, oral, Once A Day oral 1.0 1.0 d 2024 Active cyanocobalamin (vitamin B-12) 100 mcg tablet (cyanocobalamin (vitamin B-12)) 1 tab, oral, Once A Day oral 1.0 1.0 d 2024 Active Dulcolax (bisacodyl) (bisacodyl) 5 mg tablet,delayed release (DR/EC) (Dulcolax (bisacodyl) (bisacodyl)) 2 tabs/10mg, oral, Once A Day - PRN, Give if no results from [facility] oral 1.0 1.0 d 2024 Active Dulcolax (bisacodyl) (bisacodyl) 10 mg suppository (Dulcolax (bisacodyl) (bisacodyl)) 1 suppository, rectal, Once A Day - PRN, Give rectally if can't take p/o, if no results from [facility] rectal 1.0 1.0 d 2024 Active duloxetine 20 mg capsule,delayed release(DR/EC) (duloxetine) 1 cap, oral, Twice A Day oral 1.0 12.0 h 2024 Active Eliquis (apixaban) 5 mg tablet (Eliquis (apixaban)) 1 tab, oral, Twice A Day oral 1.0 12.0 h 2024 Active famotidine 20 mg tablet (famotidine) 1 tab, oral, Twice A Day oral 1.0 12.0 h 2024 Active Fleet Enema (sodium phosphates) 19-7 gram/118 mL enema (Fleet Enema (sodium phosphates)) 1 application, rectal, Once A Day - PRN, Give fleets if no results from [facility] and Dulcolax rectal 1.0 1.0 d 2024 Active furosemide 40 mg tablet (furosemide) 1 tab, oral, Twice A Day, at 7am and 2pm oral 1.0 12.0 h 2024 Active gemfibrozil 600 mg tablet (gemfibrozil) 1 tab, oral, Twice A Day oral 1.0 12.0 h 2024 Active hydrocodone-annabel taminophen 5-325 mg tablet (hydrocodone-ac etaminophen) 1-2 tabs, oral, Every 4 Hours - PRN, For pain, exempt R52 oral 1.0 4.0 h 2024 Active Jardiance (empagliflozin) 10 mg tablet (Jardiance (empagliflozin) ) 1 tab, oral, Once A Day oral 1.0 1.0 d 2024 Active levothyroxine 125 mcg tablet (levothyroxine) 1 tab, oral, Once A Day oral 1.0 1.0 d 2024 Active lisinopril 2.5 mg tablet (lisinopril) 1 tab, oral, Once A Day oral 1.0 1.0 d 2024 Active melatonin 10 mg tablet (melatonin) 1 tab, oral, At Bedtime oral 1.0 06/01 Active Milk of Magnesia (magnesium hydroxide) 400 mg/5 mL suspension (Milk of Magnesia (magnesium hydroxide)) 30 ml, oral, Every 72 Hours - PRN, if no BM in 3 daysDO NOT GIVE TO RENAL PATIENTS--GO TO DULCOLAX ORDERS oral 1.0 72.0 h 2024 Active nitroglycerin 0.4 mg tablet, sublingual (nitroglycerin) 1 tab, sublingual, Three Times A Day - PRN, every 5 minutes x 3 for chest pain, not to exceed 3 doses in 15 minutes, if pain persists, seek medical attention sublingual 1.0 8.0 h 2024 Active olopatadine 0.2 % drops (olopatadine) 1 drop, both eyes, Once A Day 1.0 1.0 d 2024 Active tamsulosin 0.4 mg capsule (tamsulosin) 1 cap, oral, Once A Day oral 1.0 1.0 d 2024 Active terazosin 1 mg capsule (terazosin) 1 cap, oral, Twice A Day oral 1.0 12.0 h 2024 Active Tylenol (acetaminophen) 325 mg tablet (Tylenol (acetaminophen) ) 2 tabs/650mg, oral, Every 6 Hours - PRN, as needed for PRN pain/increase d tempMay give rectally if necessary oral 1.0 6.0 h 2024 Active Tubersol (tuberculin ppd) 5 tub. unit /0.1 mL solution (Tubersol (tuberculin ppd)) 0.1ml, intradermal, Once - One Time, Administer the morning after admission intraderma l 1.0 06/01 Active gabapentin 300 mg capsule (gabapentin) 1 capsule, oral, At Bedtime, dx: neuropathy oral 1.0 2024 Active melatonin 5 mg tablet (melatonin) 2 tabs (10 mg), oral, At Bedtime oral 1.0 2024 Active Vital Signs Date Vital Result Comment 05/31/2024 03:50 PM Body Height 71 [in_us] 05/31/2024 03:49 PM Temperature 98 [degF] Oxygen Saturation 96 % Respiratory Rate 18 /min Heart Rate 88 /min Blood Pressure Systolic 168 mm[Hg] Blood Pressure Diastolic 64 mm[Hg] 05/31/2024 03:52 PM Body Weight 182.8 [lb_av] Body Mass Index 25.49 kg/m2 05/31/2024 08:25 PM Temperature 98 [degF] Oxygen Saturation 95 % Respiratory Rate 16 /min Heart Rate 80 /min Blood Pressure Systolic 126 mm[Hg] Blood Pressure Diastolic 80 mm[Hg] 06/01/2024 07:14 AM Temperature 98.2 [degF] Oxygen Saturation 96 % Respiratory Rate 18 /min Heart Rate 72 /min Blood Pressure Systolic 142 mm[Hg] Blood Pressure Diastolic 68 mm[Hg] 06/01/2024 10:18 AM Body Weight 182.6 [lb_av] Body Mass Index 25.46 kg/m2 06/01/2024 09:09 PM Temperature 98 [degF] Oxygen Saturation 95 % Respiratory Rate 18 /min Heart Rate 77 /min Blood Pressure Systolic 130 mm[Hg] Blood Pressure Diastolic 80 mm[Hg] 06/02/2024 08:07 AM Body Weight 182.8 [lb_av] Body Mass Index 25.49 kg/m2 06/02/2024 07:07 AM Temperature 97.6 [degF] Oxygen Saturation 96 % Respiratory Rate 16 /min Heart Rate 66 /min Blood Pressure Systolic 129 mm[Hg] Blood Pressure Diastolic 72 mm[Hg] 06/02/2024 07:54 PM Temperature 98 [degF] Oxygen Saturation 95 % Respiratory Rate 16 /min Heart Rate 70 /min Blood Pressure Systolic 120 mm[Hg] Blood Pressure Diastolic 78 mm[Hg] Social History No smoking Hx information available Encounters Type CPT Code Date Location Provider Indication s encounter report 05/31/2024 02:0 3 PM - 06/03/2024 05:26 AM Mina Veliz DO 01 Advance Directives Directive Description Verification Date Supporting Document(s) Resuscitation
--- OUTSIDE RECORDS SUMMARY | 2024-06-04 06:24 | XMS_ITS ---
Author Organization [facility] Address [address] [facility] [place] [address] Care Team Providers Care [place] Pilot Name Role Phone Sintia Luevano Primary Care Provider Unavailab PIETRO Bauer Unavailable [phone] NELSON LINTON Unavailable [phone] REASON FOR VISIT UTI symptoms Encounters Encounter Location Date Provider Diagnosis [facility] [address] [facility] [place] [address] 05/16/2024 NELSON LINTON Plan Of Treatment Next Appt Details Provider Name:PIETRO Clark, 06/11/2024 11:00:00 AM, [address] [place], [address], Progress Notes * Ghassan KLINEDOB:[birth year] (78 yo M)Acc No.[id number]:05/16/2024 Patient:?Ghassan KLINE :1945???Age:78 Y???Sex:Male Address:[address] [place] [address], [id number] * true * Date:? Generated for Printi ng/Facathieg/eTransmitting on:?06/04/2024 06:23 AM CDT
--- OUTSIDE RECORDS SUMMARY | 2024-06-04 06:24 | XMS_ITS | Encounter Summary ---
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
--- OUTSIDE RECORDS SUMMARY | 2024-06-04 06:24 | XMS_ITS | Encounter Summary ---
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 Gender Identity Not on file Sexual Orientation Not on file documented as of this encounter Plan of Treatment Not on file documented as of this encounter Procedures Procedure Name Priority Date/Time Associated Diagnosis Comments MICROALBUMIN/CREATI NINE RATIO, RANDOM UR Routine 04/17/2007 9:23 AM INTELLIGENCE CONSULTANT documented in this encounter Results * MICROALBUMIN/CREATININE RATIO, RANDOM UR (04/17/2007 9:23 AM INTELLIGENCE CONSULTANT) MICROALBUMIN URINE 1.5 MG/DL [facility] Creatinine, Urine 39 MG/DL [facility] MICROALBUMIN/CRE AT RATIO, UR 38.5 MCG/MG CREAT. [facility] MICROALBUMIN/CRE AT RATIO, UR NORMAL: <30 MCG/MG CREAT MICROALBU [place]: 30-300 MCG/MG CREAT CLINICAL ALBUMINUR [place]: >300 MCG/MG CREAT [facility] 04/17/2007 9:23 AM INTELLIGENCE CONSULTANT 04/17/2007 9:43 AM INTELLIGENCE CONSULTANT us Solo Arthur MD URINE ORDERABLES Final Resul t [facility] CLIA# [id number] [facility] [place] [address] documented in this encounter Visit Diagnoses Not on filedocumented in this encounter Care Teams Event Decorator And Designer Relationship Specialty Start Date End Date Jeff Harding MD PCP - General Emergency Medicine 08/30/18 05/06/20 documented as of this encounter
--- OUTSIDE RECORDS SUMMARY | 2024-06-04 06:24 | XMS_ITS | Continuity of Care Document ---
Author Organization [facility] Address [address] [place] [address] Care Team Providers Care Manufacturer Agent Name Role Phone Dr. Mina Veliz DO Attending Physician [phone] Medications Medication Frequency Instructions Diagnosis Start Date End Date Last Administered acetaminophen 650 mg tablet extended release Every 12 Hours 1 tab, oral, Every 12 Hours 06/01/19 25 06/02/2024 07:13 AM aspirin 81 mg tablet,delayed release (/EC) Once A Day 1 tab, oral, Once A Day 06/01/19 25 06/02/2024 07:13 AM atorvastatin 10 mg tablet Once A Day 1 tab, oral, Once A Day 06/01/19 25 06/02/2024 07:13 AM Breztri Aerosphere (budesonide-glycop yr-formoterol) 160-9-4.8 mcg/actuation HFA aerosol inhaler Twice A Day 2 puffs, inhalation, Twice A Day, Rinse mouth with water and spit after each use. 06/01/19 25 06/02/2024 07:13 AM carvedilol 6.25 mg tablet Twice A Day 1 tab, oral, Twice A Day, at 7:30am and 5:30pm 06/01/19 25 06/02/2024 07:13 AM cholecalciferol (vitamin D3) 25 mcg (1,000 unit) tablet Once A Day 1 tab, oral, Once A Day 06/01/19 25 06/02/2024 07:13 AM cyanocobalamin (vitamin B-12) 100 mcg tablet Once A Day 1 tab, oral, Once A Day 06/01/19 25 06/02/2024 07:13 AM Dulcolax (bisacodyl) (bisacodyl) 5 mg tablet,delayed release (DR/EC) Once A Day - PRN 2 tabs/10mg, oral, Once A Day - PRN, Give if no results from [facility] 06/01/19 Dulcolax (bisacodyl) (bisacodyl) 10 mg suppository Once A Day - PRN 1 suppository, rectal, Once A Day - PRN, Give rectally if can't take p/o, if no results from [facility] 06/01/19 duloxetine 20 mg capsule,delayed release(DR/EC) Twice A Day 1 cap, oral, Twice A Day 06/01/1906/02/2024 07:13 AM Eliquis (apixaban) 5 mg tablet Twice A Day 1 tab, oral, Twice A Day 06/01/1906/02/2024 07:13 AM famotidine 20 mg tablet Twice A Day 1 tab, oral, Twice A Day 06/01/1906/02/2024 07:13 AM Fleet Enema (sodium phosphates) 19-7 gram/118 mL enema Once A Day - PRN 1 application, rectal, Once A Day - PRN, Give fleets if no results from [facility] and Dulcolax 06/01/19 furosemide 40 mg tablet Twice A Day 1 tab, oral, Twice A Day, at 7am and 2pm 06/01/1906/02/2024 07:13 AM gabapentin 300 mg capsule At Bedtime 1 capsule, oral, At Bedtime, dx: neuropathy 06/02/1906/01/2024 07:21 PM gemfibrozil 600 mg tablet Twice A Day 1 tab, oral, Twice A Day 06/01/1906/02/2024 07:13 AM hydrocodone-acetam inophen 5-325 mg tablet Every 4 Hours - PRN 1-2 tabs, oral, Every 4 Hours - PRN, For pain, exempt R52 06/01/1905/31/2024 05:55 PM Jardiance (empagliflozin) 10 mg tablet Once A Day 1 tab, oral, Once A Day 06/01/19 25 06/02/2024 07:13 AM levothyroxine 125 mcg tablet Once A Day 1 tab, oral, Once A Day 06/01/19 25 06/02/2024 07:13 AM lisinopril 2.5 mg tablet Once A Day 1 tab, oral, Once A Day 06/01/1906/02/2024 07:13 AM melatonin 5 mg tablet At Bedtime 2 tabs (10 mg), oral, At Bedtime 06/02/19 25 06/01/2024 08:34 PM Milk of Magnesia (magnesium hydroxide) 400 mg/5 mL suspension Every 72 Hours - PRN 30 ml, oral, Every 72 Hours - PRN, if no BM in 3 days DO NOT GIVE TO RENAL PATIENTS--GO TO DULCOLAX ORDERS 06/01/19 nitroglycerin 0.4 mg tablet, sublingual Three Times A Day - PRN 1 tab, sublingual, Three Times A Day - PRN, every 5 minutes x 3 for chest pain, not to exceed 3 doses in 15 minutes, if pain persists, seek medical attention 06/01/19 olopatadine 0.2 % drops Once A Day 1 drop, both eyes, Once A Day 06/01/19 25 06/01/2024 06:33 AM tamsulosin 0.4 mg capsule Once A Day 1 cap, oral, Once A Day 06/01/19 25 06/01/2024 06:33 AM terazosin 1 mg capsule Twice A Day 1 cap, oral, Twice A Day 06/01/19 25 06/02/2024 07:13 AM Tylenol (acetaminophen) 325 mg tablet Every 6 Hours - PRN 2 tabs/650mg, oral, Every 6 Hours - PRN, as needed for PRN pain/increased temp May give rectally if necessary 06/01/19 melatonin 10 mg tablet At Bedtime 1 tab, oral, At Bedtime 06/01/19 25 025 05/31/2024 08:25 PM Tubersol (tuberculin ppd) 5 tub. unit /0.1 mL solution Once - One Time 0.1ml, intradermal, Once - One Time, Administer the morning after admission 06/02/19 025 06/01/2024 11:31 AM Problems Code Type Problem ICD Code Effective Date Status ICD-10 Hypertensive heart a nd chronic kidney disease with heart failure and stage 1 through stage 4 chronic kidney disease, or unspecified chronic kidney disease I13.0 05/31/2024 Activ e ICD-10 Heart failure, unspecified I50.9 Active ICD-10 Atherosclerotic hear t disease of [place] coronary artery without angina pectoris I25.10 05/31/2024 Active ICD-10 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 05/31/2024 Active ICD-10 Unspecified atrial fibrillation I48.91 05/13 Active ICD-10 technician terminal and repeater (current) use of aspirin Z79.82 0 05/31/2024 Active ICD-10 Ischemic cardiomyopathy I25.5 05/31/2024 A ctive ICD-10 Type 2 diabetes stephany itus with diabetic peripheral angiopathy without gangrene E11.51 05/31/2024 A ctive ICD-10 Type 2 diabetes stephany itus with diabetic neuropathy, unspecified E11.40 05/31/2024 Active ICD-10 Type 2 diabetes stephany itus with diabetic chronic kidney disease E11.22 05/31/2024 Active ICD-10 technician terminal and repeater (current) use of oral hypoglycemic drugs Z79.84 05/31/2024 Active ICD-10 Chronic obstructive pulmonary disease, unspecified J44.9 05/31/2024 Active ICD-10 halfway (current) use of inhaled steroids Z79 .51 05/31/2024 Active ICD-10 Tobacco use Z72.0 05/31/2024 Active ICD-10 Other spondylosis, cervical region M47.892 0 05/31/2024 Active ICD-10 Spinal stenosis, cervical region M48.02 Active ICD-10 Radiculopathy, cervical region M54.12 05/31 Active ICD-10 Bilateral primary osteoarthritis of hip M16.0 05/31/2024 Active ICD-10 Chronic kidney disease, stage 4 (severe) N18.4 05/31/2024 Active ICD-10 Unspecified severe p rotein-calorie malnutrition E43 05/31/2024 Active ICD-10 Adult failure to thrive R62.7 05/31/2024 A ctive ICD-10 Hypothyroidism, unspecified E03.9 06/01/19 Active ICD-10 Personal history of pulmonary embolism Z86.711 05/31/2024 Active ICD-10 Personal history of other venous thrombosis and embolism Z86.718 05/31/2024 Active ICD-10 halfway (current) use of anticoagulants Z79.0 1 05/31/2024 Active ICD-10 Unvaccinated for COVID-19 Z28.310 05/31/2024 Active ICD-10 Do not resuscitate Z66 05/31/2024 Active Current Allergies and Intolerances Category Substance Type Reaction Severity Begin Date Status Drug allergy Adhesive Allergy 05/31/2024 Active Drug allergy amiodarone Allergy 05/31/2024 Activ e Drug allergy Sulfonamides (Sulfa) Allergy 2024 Active Vital Signs Height: 71.0 in Date / Time Temperature Pulse (per minute) Respirations (per minute) Systolic BP (mmHg) Diastolic BP (mmHg) O2 Saturation (%) Weight BMI 2024 08:07 AM 182.8 lbs 25.4 9 2024 07:07 AM 97.6 F 66 16 129 72 96.0 2024 09:09 PM 98.0 F 77 18 130 80 95.0 2024 10:18 AM 182.6 lbs 25.4 6 2024 07:14 AM 98.2 F 72 18 142 68 96.0 2024 08:25 PM 98.0 F 80 16 126 80 95.0 2024 03:52 PM 182.8 lbs 25.4 9 2024 03:49 PM 98.0 F 88 18 168 64 96.0 Advance Directives Directive Note Do Not Resuscitate (DNR) Insurance Providers Payer Policy type Group Name Group number Policy ID Address one [facility] [employer] - [employer] [place] [employer] Medicare Part A [id number] Phone: Fax: Private Private Phone: Fax: Patient Liability Private Phone: Fax: Clinical Quick Admit Private Phone: Fax: Immunizations Vaccine Floor Layer Tile Date Status Dose Series Complete COVID-19 Vaccine 05/31/2024 Refused Influenza Vaccine 05/31/2024 Refused Pneumococcal Vaccine 05/31/2024 Refused RSV Vaccine 05/31/2024 Refused Procedures Not available for this record Results Name Date Time Positive/Negative Value Unit Range TB test 06/01/2024 11:27 AM Unknown mm Goals Goal Date Will have positive responses to activities of my choice weekly through next assessment such as..... 08/01/2024 Will have a BM at least ever y 3 days for 120 days since update/last review AND/OR will not experience any complications r/t to colostomy for 120 days from update/ last review AND/OR Will not experience any GI complications for 120 days since update/last review AND/OR Will remain clean, dry between incontinent episodes thru 120days from update/last review 08/30/2024 Social History Subject Status Smoking status Current every day martha hickman Encounters Admission Date Discharge Date Description MRN Visit Count 05/31/2024 14:03 LTPAC Admission [id number]
--- OUTSIDE RECORDS SUMMARY | 2024-06-04 06:24 | XMS_ITS | Encounter Summary ---
Author Organization [facility] Address [address] [place] [address] Care Team Providers Care Granite Polisher Apprentice Name Role Phone Jeff Harding MD Primary Care Provider Encounter Details Date Type Department Care Team (Late st Contact Info) Description 09/06/2007 Outpatient Historical [facility] 4E Cardiac ICU [address] [place] [address] Ed, Physician NO ADDRESS ON FILE Luciana Novak MD [address] [place] [address] Benson López MD NO ADDRESS ON FILE Social History Tobacco Use Types Packs/Day Years Used Date Smoking Tobacco: Never Assessed Sex and Gender Information Value Date Recorded Sex Assigned at Not on file 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 Gender Identity Not on file Sexual Orientation Not on file documented as of this encounter Plan of Treatment Scheduled Orders Name Type Priority Associated Diagnoses Orde r Schedule VDRL, CSF Lab Stat Ordered: 09/05 documented as of this encounter Procedures Procedure Name Priority Date/Time Associated Diagnosis Comments POC GLUCOSE Routine 09/07/2007 7:53 AM CDT CK TOTAL, RELATIVE INDEX Routine 09/07/2007 4:18 AM CDT CARDIAC ENZYMES Routine 09/07/2007 4:18 AM CDT CBC WITH DIFFERENTIAL Routine 09/07/2007 4:18 AM CDT CK Routine 09/07/2007 4:18 AM CDT DIGOXIN LEVEL Routine 09/07/2007 4:18 AM CDT COMPREHENSIVE METABOLIC PANEL Routine 09/07/2007 4:18 AM CDT CK TOTAL, RELATIVE INDEX Routine 09/06/2007 10:29 PM CDT CARDIAC ENZYMES Routine 09/06/2007 10:29 PM CDT MRSA CULTURE Routine 09/06/2007 10:29 PM CDT CK Routine 09/06/2007 10:29 PM CDT POC GLUCOSE Routine 09/06/2007 10:25 PM CDT XR CHEST PA OR AP 1 VW Routine 8 3:53 PM CDT CK TOTAL, RELATIVE INDEX Stat 09/06/2007 3:48 PM CDT CARDIAC ENZYMES Stat 09/06/2007 3:48 PM CDT CBC WITH DIFFERENTIAL Stat 09/06/2007 3:48 PM CDT PTT Stat 09/06/2007 3:48 PM CDT PROTIME-INR Stat 09/06/2007 3:48 PM CDT CK Stat 09/06/2007 3:48 PM CDT DIGOXIN LEVEL Stat 09/06/2007 3:48 PM CDT BASIC METABOLIC PANEL Stat 09/06/2007 3:48 PM CDT TSH Stat 09/06/2007 11:38 AM CDT documented in this encounter Results * (ABNORMAL) POC GLUCOSE (09/07/2007 7:53 AM CDT) GLUCOSE POC 121(H) 60 - 100 mg/dL [facility] Venous blood specimen (specimen) 09/07/2007 7:53 AM CDT 09/08/2007 4:47 AM CDT Benson López MD POINT OF CARE TESTING Final Res ult Performing Organization Address [facility] de Phone Number [facility] CLIA# [id number] [address] [place] [address] * (ABNORMAL) CK TOTAL, RELATIVE INDEX (09/07/2007 4:18 AM CDT) CK-MB CHEMICAL INDEX 5.2(H) 0.0 - 4.5 [facility] Blood specimen (specimen) 09/07/2007 4:18 AM CDT 09/07/2007 4:22 AM CDT Narrative [facility] - 09/07/2007 6:41 AM CDT Index added when MB elevated and CK > 70 Luciana Novak MD CHEMISTRY ORDERABLES Final Result Performing Organization Address [facility] de Phone Number [facility] CLIA# [id number] [address] [place] [address] * CK (09/07/2007 4:18 AM CDT) CK 163 38 - 174 U/L [facility] Blood specimen (specimen) 09/07/2007 4:18 AM CDT 09/07/2007 4:22 AM CDT Narrative [facility] - 09/07/2007 5:35 AM CDT CK performed when MB elevated Luciana Novak MD CHEMISTRY ORDERABLES Final Result Performing Organization Address [facility]/ZIP Co de Phone Number [facility] CLIA# [id number] [address] [place] [address] * (ABNORMAL) DIGOXIN LEVEL (09/07/2007 4:18 AM CDT) DIGOXIN LEVEL 0.5(L) 0.8 - 2.0 ng/mL [facility] Blood specimen (specimen) 09/07/2007 4:18 AM CDT 09/07/2007 4:22 AM CDT us Benson López MD CHEMISTRY ORDERABLES Final Resu lt Performing Organization Address [facility] Co de Phone Number [facility] CLIA# [id number] [facility] [place] [address] * (ABNORMAL) COMPREHENSIVE METABOLIC PANEL (09/07/2007 4:18 AM CDT) SODIUM 141 136 - 145 mEq/L [facility] BILIRUBIN TOTAL 0.5 0.3 - 1.2 mg/dL [facility] TOTAL PROTEIN 7.0 6.3 - 8.2 g/dL [facility] BUN 27(H) 9 - 20 mg/dL [facility] AST 25 8 - 33 U/L [facility] CO2 26 22 - 32 mmol/l [facility] ANION GAP 12 9 - 20 mEq/L [facility] ALBUMIN 4.3 3.5 - 5.0 g/dL [facility] POTASSIUM 3.7 3.5 - 5.0 mEq/L [facility] GLOBULIN (CALC) 2.7 2.4 - 3.9 g/dL [facility] CREATININE 1.0 0.7 - 1.5 mg/dL [facility] CALCIUM 9.2 8.4 - 10.5 mg/dL [facility] OSMOLALITY, CALCULATED 298(H) 275 - 295 mOsm/Kg [facility] ALT 18 4 - 36 IU/L [facility] GLUCOSE 172(H) 70 - 110 mg/dL [facility] CHLORIDE 107 95 - 110 mEq/L [facility] ALBUMIN/GLOBULIN RATIO 1.6 1.0 - 2.3 [facility] ALKALINE PHOSPHATASE 78 25 - 100 U/L [facility] Blood specimen (specimen) 09/07/2007 4:18 AM CDT 09/07/2007 4:22 AM CDT us Benson López MD CHEMISTRY ORDERABLES Final Resu lt [facility] CLIA# [id number] [address] [place] [address] * (ABNORMAL) CBC WITH DIFFERENTIAL (09/07/2007 4:18 AM CDT) RBC 5.27 4.60 - 6.20 Mil/ul [facility] LYMPHOCYTES 28.3 24.0 - 44.0 % [facility] MCHC 33.0 30.0 - 35.0 g/dL [facility] LYMPHOCYTE ABSOLUTE 2.5 1.2 - 4.0 K/ul [facility] MCV 88.4 84.0 - 103.0 Fl [facility] MPV 9.7 8.9 - 12.8 Fl [facility] BASOPHILS ABSOLUTE 0.0 0.0 - 0.2 K/ul [facility] BASOPHILS 0.4 0.0 - 1.0 % [facility] HEMOGLOBIN 15.4 14.0 - 18.0 g/dL [facility] RDW 15.5(H) 11.0 - 14.5 % [facility] MONOCYTE ABSOLUTE 1.1(H) 0.1 - 0.6 K/ul [facility] MONOCYTES 12.5(H) 2.0 - 10.0 % [facility] WBC 8.9 4.8 - 10.8 K/ul [facility] MCH 29.2 27.0 - 34.0 pg [facility] NEUTROPHIL ABSOLUTE 4.8 2.0 - 8.0 K/ul [facility] NEUTROPHILS 53.6 42.2 - 75.2 % [facility] HEMATOCRIT 46.6 41.0 - 53.0 % [facility] EOSINOPHILS 5.2 0.0 - 7.0 % [facility] PLATELETS 225 140 - 440 K/ul [facility] EOSINOPHIL ABSOLUTE 0.5 0.0 - 0.7 K/ul [facility] Blood specimen (specimen) 09/07/2007 4:18 AM CDT 09/07/2007 4:23 AM CDT us Benson López MD HEMATOLOGY ORDERABLES Final Res ult Performing Organization Address [facility] Co de Phone Number [facility] CLIA# [id number] [address] [place] [address] * (ABNORMAL) CARDIAC ENZYMES (09/07/2007 4:18 AM CDT) CKMB 8.5(H) 0.0 - 5.0 ng/mL [facility] TROPONIN I 1.4(AA) 0.0 - 1.3 ng/mL [facility] Comment: Potentially critical/toxic Troponin called by sfm to Niraj MCDOWELL, with verbal read back, at [id number]. Blood specimen (specimen) 09/07/2007 4:18 AM CDT 09/07/2007 4:22 AM CDT us Luciana Novak MD CHEMISTRY ORDERABLES Final Result Performing Organization Address [facility] Co de Phone Number [facility] CLIA# [id number] [address] [place] [address] * (ABNORMAL) CK TOTAL, RELATIVE INDEX (09/06/2007 10:29 PM CDT) CK-MB CHEMICAL INDEX 5.9(H) 0.0 - 4.5 [facility] Blood specimen (specimen) 09/06/2007 10:29 PM CDT 09/06/2007 10:33 PM CDT Narrative [facility] - 09/06/2007 11:29 PM CDT Index added when MB elevated and CK > 70 Luciana Novak MD CHEMISTRY ORDERABLES Final Result Performing Organization Address [facility] Co de Phone Number [facility] CLIA# [id number] [address] [place], [place] [address] * (ABNORMAL) CK (09/06/2007 10:29 PM CDT) CK 193(H) 38 - 174 U/L [facility] Blood specimen (specimen) 09/06/2007 10:29 PM CDT 09/06/2007 10:33 PM CDT Narrative [facility] - 09/06/2007 11:20 PM CDT CK performed when MB elevated us Luciana Novak MD CHEMISTRY ORDERABLES Final Result Performing Organization Address [facility] Co de Phone Number [facility] CLIA# [id number] [address] [place] [address] * (ABNORMAL) CARDIAC ENZYMES (09/06/2007 10:29 PM CDT) TROPONIN I 2.2(AA) 0.0 - 1.3 ng/mL [facility] Comment: Potentially critical/toxic Troponin called by sfm to Niraj MCDOWELL, with verbal read back, at 2306. CKMB 11.4(H) 0.0 - 5.0 ng/mL [facility] Blood specimen (specimen) 09/06/2007 10:29 PM CDT 09/06/2007 10:33 PM CDT Luciana Novak MD CHEMISTRY ORDERABLES Final Result Performing Organization Address [facility] Co de Phone Number [facility] CLIA# [id number] [address] [place] [address] * MRSA CULTURE (09/06/2007 10:29 PM CDT) FINAL REPORT Culture screen for MRSA negative INTERFACE SYSTEM 09/06/2007 10:2 9 PM CDT 09/07/2007 7:49 AM CDT us Benson López MD MICROBIOLOGY - GENERAL ORDERABL ES Final Result Performing Organization Address [facility] Co de Phone Number INTERFACE SYSTEM Refer to clinic/hospital department * (ABNORMAL) POC GLUCOSE (09/06/2007 10:25 PM CDT) GLUCOSE POC 216(H) 60 - 100 mg/dL [facility] Venous blood specimen (specimen) 09/06/2007 10:25 PM CDT 09/07/2007 5:59 AM CDT Benson López MD POINT OF CARE TESTING Final Res ult Performing Organization Address [facility] de Phone Number [facility] CLIA# [id number] [address] [place] [address] * XR CHEST PA OR AP (09/06/2007 3:53 PM CDT) Anatomical Region Laterality Modality Chest Other 09/06/2007 3:53 PM CDT Narrative 09/07/2007 11:03 AM CDT Exam: Chest - Portable Date/Time of Exam: Sep 06, 2007 3:53:45 PM History: Angina. Comparison: None. Findings: Mild rotation to the left is present. The patient is status post median sternotomy with mild right basilar atelectasis versus infiltrate present. No definite pleural effusion or pneumothorax is identified. Diffuse osteopenia is identified. Impression: 1. Right basilar atelectasis versus infiltrate. 2. Status post median sternotomy. Dictated By: ?Kim Rousseau M.D. Electronically Signed By: ?Kim Rousseau M.D. Date Signed: 09/07/07 SDM Procedure Note Dee Rousseau - 10/07/2007 Exam: Chest - Portable Date/Time of Exam: Sep 06, 2007 3:53:45 PM History: Angina. Comparison: None. Findings: Mild rotation to the left is present. The patient is status postmedian sternotomy with mild right basilar atelectasis versus infiltrate present. No definite pleuraleffusion or pneumothorax is identified. Diffuse osteopenia is identified. Impression: 1. Right basilar atelectasis versus infiltrate. 2. Status post median sternotomy. Dictated By: Mariya Rousseau M.D. Electronically Signed By: Mariya Rousseau M.D. Date Signed: 09/07/07 SDM Luciana Novak MD DIAGNOSTIC IMAGING ORDERABL ES Final Result * (ABNORMAL) DIGOXIN LEVEL (09/06/2007 3:48 PM CDT) DIGOXIN LEVEL 0.4(L) 0.8 - 2.0 ng/mL [facility] Blood specimen (specimen) 09/06/2007 3:48 PM CDT 09/06/2007 7:10 PM CDT Luciana Novak MD CHEMISTRY ORDERABLES Final Result Performing Organization Address [facility] de Phone Number [facility] CLIA# [id number] [address] [place] [address] * CK TOTAL, RELATIVE INDEX (09/06/2007 3:48 PM CDT) CK-MB CHEMICAL INDEX 3.0 0.0 - 4.5 [facility] Blood specimen (specimen) 09/06/2007 3:48 PM CDT 09/06/2007 3:54 PM CDT Narrative [facility] - 09/06/2007 5:05 PM CDT Index added when MB elevated and CK > 70 Luciana Novak MD CHEMISTRY ORDERABLES Final Result Performing Organization Address [facility]/ZIP Co de Phone Number [facility] CLIA# [id number] [address] [place] [address] * CK (09/06/2007 3:48 PM CDT) Pathologist [facility] CK 169 38 - 174 U/L [facility] Blood specimen (specimen) 09/06/2007 3:48 PM CDT 09/06/2007 3:54 PM CDT Narrative [facility] - 09/06/2007 5:00 PM CDT CK performed when MB elevated Luciana Novak MD CHEMISTRY ORDERABLES Final Result Performing Organization Address [facility] de Phone Number [facility] CLIA# [id number] [address] [place] [address] * (ABNORMAL) BASIC METABOLIC PANEL (09/06/2007 3:48 PM CDT) Pathologist [facility] BUN 31(H) 9 - 20 mg/dL [facility] CO2 25 22 - 32 mmol/l [facility] POTASSIUM 4.0 3.5 - 5.0 mEq/L [facility] Comment: Specimen slightly hemolyzed OSMOLALITY, CALCULATED 298(H) 275 - 295 mOsm/Kg [facility] CREATININE 1.1 0.7 - 1.5 mg/dL [facility] CALCIUM 10.0 8.4 - 10.5 mg/dL [facility] GLUCOSE 138(H) 70 - 110 mg/dL [facility] CHLORIDE 107 95 - 110 mEq/L [facility] ANION GAP 13 9 - 20 mEq/L [facility] SODIUM 141 136 - 145 mEq/L [facility] Blood specimen (specimen) 09/06/2007 3:48 PM CDT 09/06/2007 3:54 PM CDT Luciana Novak MD CHEMISTRY ORDERABLES Final Result Performing Organization Address [facility]/State/ZIP Co de Phone Number [facility] CLIA# [id number] [address] [place] [address] * (ABNORMAL) CBC WITH DIFFERENTIAL (09/06/2007 3:48 PM CDT) RBC 5.75 4.60 - 6.20 Mil/ul [facility] LYMPHOCYTES 31.4 24.0 - 44.0 % [facility] MCHC 34.3 30.0 - 35.0 g/dL [facility] LYMPHOCYTE ABSOLUTE 3.7 1.2 - 4.0 K/ul [facility] MCV 87.7 84.0 - 103.0 Fl [facility] MPV 10.4 8.9 - 12.8 Fl [facility] BASOPHILS ABSOLUTE 0.1 0.0 - 0.2 K/ul [facility] BASOPHILS 0.4 0.0 - 1.0 % [facility] HEMOGLOBIN 17.3 14.0 - 18.0 g/dL [facility] RDW 15.6(H) 11.0 - 14.5 % [facility] MONOCYTE ABSOLUTE 0.9(H) 0.1 - 0.6 K/ul [facility] MONOCYTES 7.3 2.0 - 10.0 % [facility] WBC 11.7(H) 4.8 - 10.8 K/ul [facility] MCH 30.1 27.0 - 34.0 pg [facility] NEUTROPHIL ABSOLUTE 6.7 2.0 - 8.0 K/ul [facility] NEUTROPHILS 57.8 42.2 - 75.2 % [facility] HEMATOCRIT 50.4 41.0 - 53.0 % [facility] EOSINOPHILS 3.1 0.0 - 7.0 % [facility] PLATELETS 259 140 - 440 K/ul [facility] EOSINOPHIL ABSOLUTE 0.4 0.0 - 0.7 K/ul [facility] Blood specimen (specimen) 09/06/2007 3:48 PM CDT 09/06/2007 3:54 PM CDT Luciana Novak MD HEMATOLOGY ORDERABLES Final Result Performing Organization Address [facility] de Phone Number [facility] CLIA# [id number] [address] [place] [address] * (ABNORMAL) PTT (09/06/2007 3:48 PM CDT) PTT 55.0(H) 22.5 - 36.5 Secs [facility] Comment: Therapeutic Range: ?? Hi-level PE/DVT heparin protocol 80.1 -95.0 ??sec ? Lo-level PE/DVT ??heparin protocol ??67.1 - ??80.0 sec ?? Cardiac Heparin Protocol 67.1 - 85.0 sec ?? Neuro Heparin Protocol 67.1 - 80.0 sec As of 06/01/2007 note change in APTT Normal Range. Blood specimen (specimen) 09/06/2007 3:48 PM CDT 09/06/2007 3:54 PM CDT Luciana Novak MD HEMATOLOGY ORDERABLES Final Result Performing Organization Address [facility] Phone Number [facility] CLIA# [id number] [address] [place] [address] * (ABNORMAL) PROTIME-INR (09/06/2007 3:48 PM CDT) INR 2.4 [facility] Comment: Expected Values for INR: DVT/PE ?Goal INR 2.5; range 2.0 - 3.0 Valve Replacement ? Tissue ? Goal INR 2.5; range 2.0 - 3.0 ? Mechanical ?Goal INR 3.0; range 2.5 - 3.5 POST-NV ?Goal INR 2.5; range 2.0 - 3.0 ??or Goal 3.0; range 2.5 - 3.5 Atrial Fibrillation ?Goal INR 2.5; range 2.0 - 3.0 Ischemic Stroke ?Goal INR 2.5; range 2.0 - 3.0 For additional information see Guidelines for Anticoagulation available from the pharmacy [facility] ??[phone] PROTIME 28.3(H) 12.8 - 15.8 Secs [facility] Comment:As of 2007 not e change in normal range. Blood specimen (specimen) 09/06/2007 3:48 PM CDT 09/06/2007 3:54 PM CDT us Luciana Novak MD HEMATOLOGY ORDERABLES Final Result Performing Organization Address [facility] de Phone Number [facility] CLIA# [id number] [address] [place] [address] * (ABNORMAL) CARDIAC ENZYMES (09/06/2007 3:48 PM CDT) [facility] TROPONIN I 0.3 0.0 - 1.3 ng/mL [facility] CKMB 5.1(H) 0.0 - 5.0 ng/mL [facility] Blood specimen (specimen) 09/06/2007 3:48 PM CDT 09/06/2007 3:54 PM CDT us Luciana Novak MD CHEMISTRY ORDERABLES Final Result Performing Organization Address [facility] de Phone Number [facility] CLIA# [id number] [address] [place] [address] * TSH (09/06/2007 11:38 AM CDT) Pathologist [facility] TSH 2.870 0.350 - 5.500 uIU/ml [facility] Blood specimen (specimen) 09/06/2007 11:38 AM CDT 09/06/2007 4:15 PM CDT us Luciana Novak MD CHEMISTRY ORDERABLES Final Result Performing Organization Address City/State/[facility] Co de Phone Number [facility] CLIA# [id number] [address] [place] [address] documented in this encounter Visit Diagnoses Not on filedocumented in this encounter Care Teams Granite Polisher Apprentice Relationship Specialty Start Date End Date Jeff Harding MD PCP - General Emergency Medicine 08/30/18 05/06/20 documented as of this encounter
--- OUTSIDE RECORDS SUMMARY | 2024-06-04 06:24 | XMS_ITS | Encounter Summary ---
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
--- OUTSIDE RECORDS SUMMARY | 2024-06-04 06:24 | XMS_ITS | Encounter Summary ---
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
--- OUTSIDE RECORDS SUMMARY | 2024-06-04 06:24 | XMS_ITS | Encounter Summary ---
Author Organization [facility] Address [address] [place] [address] Care Team Providers Care Learning Design Specialist Name Role Phone Jeff Harding MD Primary Care Provider Encounter Details Date Type Department Care Team (Late st Contact Info) Description 04/17/2007 Outpatient Historical [facility] [address], [place] [address] Solo Arthur MD [address] [phone] Social History Tobacco Use Types Packs/Day Years Used Date Smoking Tobacco: Never Assessed Sex and Gender Information Value Date Recorded Sex Assigned at Not on file 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
--- OUTSIDE RECORDS SUMMARY | 2024-06-04 06:24 | XMS_ITS | Encounter Summary ---
Author Organization [facility] Address [address] [place] [address] Care Team Providers Care Data Security Analyst Name Role Phone Jeff Harding MD Primary Care Provider [phone] Encounter Details Date Type Department Care Team (Late st Contact Info) Description 02/15/2007 Outpatient Historical [facility] [address], [place] [address] Solo Arthur MD [address], [place] [phone] Social History Tobacco Use Types Packs/Day Years Used Date Smoking Tobacco: Never Assessed Sex and Gender Information Value Date Recorded Sex Assigned at Not on file 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
--- OUTSIDE RECORDS SUMMARY | 2024-06-04 06:24 | XMS_ITS | Encounter Summary ---
Author Organization [facility] Address [address] [place] [address] Care Team Providers Care Sales Agent Casualty Insurance Name Role Phone Jeff Harding MD Primary Care Provider Encounter Details Date Type Department Care Team (Late st Contact Info) Description 03/19/2008 Outpatient Historical [facility] [address] [place] [address] Heladio Coyne MD [address] [place] [phone] Social History Tobacco Use Types Packs/Day Years Used Date Smoking Tobacco: Every Day Cigarettes Alcohol Use Standard Drinks/Week Comments Yes 0 (1 standard drink = 0.6 oz pure alcohol) beer seldom very little on occasion 6 pack a year Sex and Gender Information Value Date Recorded Sex Assigned at Not on file Legal Sex Male 3:10 AM [employer] K[employer]ITTING [employer] Gender Identity Not on file Sexual Orientation Not on file documented as of this encounter Plan of Treatment Not on file documented as of this encounter Procedures Procedure Name Priority Date/Time Associated Diagnosis Comments PROTIME-INR Routine 03/19/2008 9:45 AM [employer]ITT[employer]ACHINE [employer] documented in this encounter Results * (ABNORMAL) PROTIME-INR (03/19/2008 9:45 AM HEAD KNITTING MACHINE FIXER) PROTIME 19.3(H) 12.8 - 15.8 Secs [facility] Comment:As of 2007 not e change in normal range. INR 1.5 [facility] Comment: Expected Values for INR: DVT/PE ?Goal INR 2.5; range 2.0 - 3.0 Valve Replacement ? Tissue ? Goal INR 2.5; range 2.0 - 3.0 ? Mechanical ?Goal INR 3.0; range 2.5 - 3.5 POST-IA ?Goal INR 2.5; range 2.0 - 3.0 ??or Goal 3.0; range 2.5 - 3.5 Atrial Fibrillation ?Goal INR 2.5; range 2.0 - 3.0 Ischemic Stroke ?Goal INR 2.5; range 2.0 - 3.0 For additional information see Guidelines for Anticoagulation available from the pharmacy [facility] ??[phone] Blood specimen (specimen) 03/19/2008 9:45 AM HEAD K[employer]ITTING MACHINE [employer] 03/19/2008 10:21 PM HEAD K[employer]ITTING [employer]ACHINE [employer] us Heladio Coyne MD HEMATOLOGY ORDERABLES Final R esult INTERFACE SYSTEM Refer to clinic/hospital department [facility] CLIA# [id number] [address] [place] [address] documented in this encounter Visit Diagnoses Not on filedocumented in this encounter Care Teams Sales Agent Casualty Insurance Relationship Specialty Start Date End Date Jeff Harding MD PCP - General Emergency Medicine 08/30/18 05/06/20 documented as of this encounter
[2024-06-04] MEDS: budesonide 0.5 mg/2 mL Neb INHALATION (07:40)
[2024-06-04] MEDS: norepinephrine 4 MG/250 ML BAG 52.5 MG IV (08:26)
[2024-06-04] MEDS: VANCOMYCIN ADD-Vantage 750 MG in 0.9% NaCl ADD-Vantage 250 ML 250 MG IV (08:51)
[2024-06-04] MEDS: pantoprazole 40 mg SDV IVP (08:53)
[2024-06-04] MEDS: levothyroxine 125 mcg Tablet PO (08:57)
[2024-06-04] MEDS: duloxetine 20 mg Capsule PO (08:58)
[2024-06-04] MEDS: aspirin 81 mg EC Tablet PO (08:58)
[2024-06-04] MEDS: ATORVASTATIN 10 MG TABLET PO (08:58)
[2024-06-04] MEDS: tamsulosin 0.4 mg Capsule PO (08:58)
--- NOTE | 2024-06-04 11:41 | PC.SOCIAL ---
IMM Update pg 2 of IMM Updated and reviewed w/ patient. Copy provided and copy dated, initialed and placed in chart.
--- NOTE | 2024-06-04 12:00 | PC.NURSE ---
Pt decided he is done with wearing Oxygen, his cannula is lying in the bed.
--- NOTE | 2024-06-04 12:10 | PC.NURSE ---
Dr Larson at bedside speaking to pt. Levophed and IVF stopped.
--- NOTE | 2024-06-04 13:33 | P.PN_ITS ---
Subjective 2 Subjective: - Patient was examined this morning -He is alert oriented x 3, following all commands ? Currently on heated high flow ? Currently on 12 Levophed ? Patient tells me that he is tired of living, he is tired of feeling short of breath, he is tired of hurting all over, he understands he has multiple medical problems including CAD, CABG, COPD, history of pulmonary embolism, DVT, atrial fibrillation, he was recently hospitalized at [facility] for a long time he tells me, for life-threatening nosebleed, he was actually transferred from [facility] to [place] due to persistent bleeding, requiring surgical intervention multiple times ? He denies depressed, he tells me that he is DNR/DNI, and that he understands he has multiple ongoing medical problems, but he does not want to continue to suffer, he does not want to continue to live like this, he tells me that he is lost functionality of his legs, he has chronic pain all over, and now he is feeling significantly short of breath on the heated high flow, -I discussed with Ghassan that currently he is in septic shock source is likely a combination of UTI with staphylococcal aureus bacteremia, with evidence of respiratory failure secondary to pneumonia, with septic shock, acute renal failure -With his underlying chronic medical pro blems, and his decreased functionality at baseline -We discussed his overall goals care -Options I discussed was continue medica l interventions, giving him time, continue oxygen therapy, continue pressors, continuing medical interventions and hopefully his kidney function improves, his septic shock improves, his clinical status improves, goal is to eventually get him back to retirement facility -Discussed aggressive interventions such as intubation, -Other options I discussed was given his Complaints of pain, that he does not want to live like this anymore, his severe pain complaints, we discussed a hybrid model of controlling his pain, but continue medical interventions, which is what we are doing right now giving him time this would likely require a prolonged hospital stay, continuing all medical interventions -Other options I discussed was comfort c are, the goal comfort care is to ease his pain easing suffering allowing him to pass away comfortably, discussed with him that his respiratory failure, septic shock, UTI, pneumonia, renal failure, Staph aureus bacteremia his life ending, he will likely succumb to these illnesses, but the goal of comfort care would be to ease his pain, easing suffering allow him to pass her comfortably - was at bedside during this convers ation -He tells me 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, he wants life sustaining measures to be stopped, he tells me that what is a good of prolonging his life when he is suffering in pain, when he has reduced functionality, when he has such struggle breathing -He wants to talk to the director of automation before m aking a decision -Nursing staff advised me that patient jose orantes made the decision to pursue comfort care, after speaking to the director of automation -I saw Ghassan again early in the afterno on, he is alert oriented x 3, following all commands, he is removed his oxygen, he tells me he does not want to have his oxygen anymore, he wants his IVs removed, -I had a detailed discussion with Ghassan about comfort care, what comfort care entails, goal of comfort cares to ease his pain, ease his suffering allow him to pass away comfortably, goal is not to hasten his , he understands that his condition currently poor, status is critical, and without treatment he will . After discussing risk and benefits of all options, he voiced understanding, all question answered, agreed to proceed with comfort care Vitals/I&O/Wt Last Vital Signs Temp 98.1 F 06/04/24 07:31 Pulse 90 06/04/24 11:29 Resp 17 06/04/24 11:29 BP 115/66 06/04/24 10:30 Pulse Ox 94 06/04/24 11:29 O2 Del Method Heated High Flow 06/04/24 10:30 O2 Flow Rate 40 06/04/24 11:29 FiO2 40 06/04/24 11:29 06/03/24 06/04/24 06/04/24 22:59 06:59 14:59 Intake Total 4998.925 / 8211.975 3112.175 / 62344.150 1324.00 / 1324.00 Output Total 6750 / 6750 1425 / 8175 Balance -1751.075 / 5433.766 6454.175 / 3149.150 1324.00 / 1324.00 Weight last 48 hrs Weight 84.5 kg Weight 77.111 kg Weight 77.111 kg Physical Exam 2 Const: COMMON NORMALS: no acute distress GENERAL APPEARANCE: ill appearing and frail appearing ORIENTATION/CONSCIOUSNESS: Yes awake, Yes oriented to person, Yes oriented to place and Yes oriented to time Eye: COMMON NORMALS: Equal, round and reactive pupils present PUPIL: Yes Equal, round and reactive pupils present Neck/C-Spine: COMMON NORMALS: no lymphadenopathy Resp: COMMON NORMALS: normal respiratory effort, No retractions and No use of accessory muscles AUSCULTATION: crackles and wheezes Cardio: COMMON NORMALS: regular rhythm, S1 normal heart sound present and S2 normal heart sound present RATE: tachycardic RHYTHM: regular rhythm H EART SOUNDS: S1 normal heart sound present and S2 normal heart sound present GI: COMMON NORMALS: Normal to inspection, nondistended, normoactive bowel sounds present and non-tender Extremity: COMMON NORMALS: no pedal edema NARRATIVE EXTREMITY EXAM: DP PT pulses diminished bilaterally, cap refill greater than 3 seconds, mottling bilateral extremity Neuro: SENSORIUM/ORIENTATION: Yes oriented to person, Yes oriented to place and Yes oriented to time Urinary Catheter Management: 3-way Urethral CBI: Cath Placed During This Visit: yes Reason for Continuing Indwelling Catheter: Accurate Measurement of Urinary Output in Critically Ill Patients Urinary Catheter Date of Insertion: 06/03/24 Urinary Catheter Time of Insertion: 06:00 Data 06/04/24 05:10 06/04/24 05:10 Micro: Microbiology 06/03/24 12:10 Urine Culture - Preliminary Urine,Clean Catch 06/03/24 05:47 Blood Culture - Preliminary Blood Staphylococcus aureus 06/03/24 05:50 Blood Culture - Preliminary Blood NEGATIVE TO DATE 06/03/24 12:10 Bacterial Antigens - Final Urine Kidney A&P Assessment and plan (1) Acute hypoxemic respiratory failure: (2) Pneumonia: (3) UTI (urinary tract infection): (4) Anemia: (5) Hematuria: (6) Ischemic cardiomyopathy: (7) Leukopenia: (8) Chronic indwelling Bingham catheter: (9) COPD (chronic obstructive pulmonary disease): (10) S/P CABG (coronary artery bypass graft): (11) SVT (supraventricular tachycardia): (12) H/O cardiac radiofrequency ablation: (13) History of DVT (deep vein thrombosis): (14) Failure to thrive: (15) Staphylococcus aureus bacteremia: (16) Need for comfort care: Plan Acute hypoxic respiratory failure Pneumonia Septic shock Staph aureus bacteremia Urinary tract infection Acute renal failure NSTEMI With underlying CAD, CABG, COPD, atrial fibrillation, diabetes, hypothyroidism PDMP PDMP Reviewed: Not Reviewed Attestations 2 Medical Necessity Statement*: Patient requires hospitalization, for comfort care Coding Level of Care Code Critical Care >/= 30 minutes Critical care time (in minutes): 45 The high probability of a clinically significant, sudden or life threatening deterioration, as referenced in this documentation, required my full and direct attention, intervention and personal management. The critical care time shown is in addition to time spent performing any reported separately billable procedures and includes the following: [x] Data and vital sign review and interpretation [x ] Patient assessment, examination and intervention [x] Medication orders and management [x] Patient/Family updates as able [x] Care Coordination and Documentation. Diagnoses Acute hypoxemic respiratory failure J96.01 Pneumonia J18.9 UTI (urinary tract infection) N39.0 Anemia D64.9 Hematuria R31.9 Ischemic cardiomyopathy I25.5 Leukopenia D72.819 Chronic indwelling Bingham catheter Z97.8 COPD (chronic obstructive pulmonary disease) J44.9 S/P CABG (coronary artery bypass graft) Z95.1 SVT (supraventricular tachycardia) I47.1 H/O cardiac radiofrequency ablation Z98.890 History of DVT (deep vein thrombosis) Z86.718 Failure to thrive Staphylococcus aureus bacteremia R78.81; B95.61 Need for comfort care
[2024-06-04] MEDS: LORazepam 2 mg/mL INJ 1 mL PO (13:48)
--- NOTE | 2024-06-04 18:08 | PC.NURSE ---
Shift summary: Pt remained resting in bed throughout shift. He was on HHF 40 liters and 40% this am, he is now room air. Sinus rhythm noted on monitor. Pt very tearful this am. He wanted to quit medical intervention but was concerned that it might be interpreted as suicide. He requested to speak to chaplains. Lizet and Jori, our Chaplains both took turns speaking with pt. He was still tearful but decided to transition to comfort care. He has denied pain throughout shift. Ativan 1mg Po admin for his comfort. It was effective: he has settled down, he is now able to make conversation without getting so tearful as to be incoherent. Levophed stopped. SBP soft but MAP has stayed at least 65. His O2 sats are between 85-89% CBL also discontinued. 650ml of dark yellow urine output noted this afternoon. Pt has had multiple and frequent pasty brown BMs today.
[2024-06-05] MEDS: neomycin-poly-bacitracin oint 28 gm 1 APPLIC TOPICAL (00:04)
[2024-06-05] MEDS: LORazepam 2 mg/mL INJ 1 mL PO (00:04)
[2024-06-05] MEDS: morphine 10 mg/0.5 mL oral liq UD SUBLINGUAL ×3 (00:15→05:59)
[2024-06-05] MEDS: nicotine 21 mg Patch 1 PATCH TRANSDERMA (02:14)
[2024-06-05 07:55] VITALS: BP 90/62; PULSE 84; RESP 16; TEMP 36.4; O2SAT 90
--- NOTE | 2024-06-05 10:40 | P.DS_ITS ---
Discharge Providers Date of Admission: 06/03/24 09:00 Date of Discharge: June 05, 2024 Attending Provider at Admission: Kevin Garcia MD Attending Provider at Discharge: Aamir Larson MD Primary Care Provider: Sulema Barraza APRN Diagnoses at Discharge Discharge Diagnosis (1) Acute hypoxemic respiratory failure: Status: Acute (2) Pneumonia: Status: Acute (3) UTI (urinary tract infection): Status: Acute (4) Anemia: Status: Acute (5) Hematuria: Status: Acute (6) Ischemic cardiomyopathy: Status: Acute (7) Leukopenia: Status: Acute (8) Chronic indwelling Bingham catheter: Status: Acute (9) COPD (chronic obstructive pulmonary disease): Status: Acute (10) S/P CABG (coronary artery bypass graft): Status: Acute (11) SVT (supraventricular tachycardia): Status: Acute (12) H/O cardiac radiofrequency ablation: Status: Acute (13) History of DVT (deep vein thrombosis): Status: Acute (14) Failure to thrive: Status: Acute (15) Staphylococcus aureus bacteremia: Status: Acute (16) Need for comfort care: Status: Acute Reason for Visit Reason for Visit: BLOODY URINE Hospital Course Hospital Course This is a 78-year-old male with a past medical history of CAD status post CABG, hypertension, COPD, CKD, DVT, atrial fibrillation, SVT, status post ablation, chronic indwelling Bingham catheter, failure to thrive, recent hospitalization at [facility] for life-threatening nosebleed requiring trans palatal approach, creating permanent opening, currently at residential facility, who presents [facility] due to shortness of breath, and hematuria Patient was admitted to [facility] for acute hypoxic respiratory failure secondary to pneumonia, likely recurrent aspiration from his transpalatal opening, urinary tract infection, Staphylococcus aureus bacteremia, septic shock, acute renal failure, anemia requiring 1 unit PRBC, requiring ICU admission, pressor therapy, heated high flow, broad-spectrum antibiotic therapy, stress dose steroids, and clinically monitored. Patient had persistent respiratory failure, requiring heated high flow, septic shock requiring Levophed, acute renal failure, acute anemia. Patient was monitored as inpatient, after detailed discussion of goals of care with patient and , after discussing all options available, patient and agreed to proceed with comfort care/hospice. Patient will be discharged to residential facility on comfort care/hospice. For patient's transpalatal opening, for life-threatening nosebleed, done at [facility], I do not have the records from [facility] as of yet, but what it sounds like patient had done, was a trans palatal approach, ligating internal maxillary artery for his life threatening nose bleed. 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 He told me that the physicians at [facility] have advised him that he would have to learn to live with this, he could use a [place] potty to clean out his nasal sinuses. Patient tells me that, if possible he wants his this hole in his hard palate to be fixed, it is interfering with his comfort, and that why he wants intervention, w ill have patient follow up with ENT as outpatient. Physical Exam Const: COMMON NORMALS: no acute distress GENERAL APPEARANCE: ill appearing and frail appearing Resp: COMMON NORMALS: normal respiratory effort, No retractions, No use of accessory muscles and clear to auscultation bilaterally AUSCULTATION: clear to auscultation bilaterally Cardio: COMMON NORMALS: regular rate, regular rhythm, S1 normal heart sound present and S2 normal heart sound present RATE: regular rate RHYTHM: regular rhythm HEART SOUNDS: S1 normal heart sound present and S2 normal heart sound present GI: COMMON NORMALS: Normal to inspection, nondistended, normoactive bowel sounds present Extremity: COMMON NORMALS: no pedal edema Urinary Catheter Management: 3-way Urethral CBI: Cath Placed During This Visit: yes Reason for Continuing Indwelling Catheter: Chronic Indwelling Urinary Catheter on Admission Urinary Catheter Date of Insertion: 06/03/24 Urinary Catheter Time of Insertion: 06:00 Discharge Data Studies Completed and Pending Completed Studies During Hospitalization Category Date Time Status CT head wo con* [id number] Stat Cat Scan 06/03/24 05:[address] abdomen pelvis [CT Angio Chest + Abdomen Cat Scan 06/03/24 05:42 Completed Pelvis w/ contrast; [id number] + [id number]] Stat CXRP [XR chest 1V portable [id number]] Stat Exams 06/03/24 07:43 Completed XR chest 1V portable [id number] Stat Exams 06/03/24 05:34 Completed CV. echo complete* [id number] Routine Ultrasound 06/03/24 09:00 Completed Pending at discharge Category Date Time Status Blood Culture Stat Lab 06/03/24 05:50 Results Fibrinogen Degradation Product Stat Lab 06/03/24 10:28 Received Sputum Culture and Gram Stain Stat Lab 06/04/24 07:45 Results Radiology Impressions Chest/Abdomen/Pelvis CT 06/03/24 05:42 IMPRESSION: 1. Left lower lobe infiltrate. Severe underlying emphysema. Partially calcified pleural plaques. Coronary artery calcification. 2. Findings suggestive of healed granulomatous disease. IMPRESSION: 1. No hydronephrosis. Hemorrhage and/or soft tissue density within urinary bladder. Lack of contrast limits evaluation. 2. Large amount of stool in the rectum. Severe sigmoid colon diverticulosis with a short segment of wall thickening and mild inflammatory change. Colitis not excluded. 3. Cholelithiasis without ductal dilatation. 4. 4.4 cm left adrenal mass. 1.8 cm right adrenal nodule. These should be further evaluated with multiphasic MR imaging to exclude neoplasm. COMMENTS: Consistent with the [employer]'s Incidental Findings Committee white paper (J Am Eduardo Radiol 2018): Any incidental renal lesion less than 1 cm or classified as too small to characterize, or any incidental cystic renal lesion characterized as simple-appearing, is likely benign. No follow-up imaging is recommended for these lesions per consensus recommendations based on imaging criteria. Head CT 06/03/24 05:42 IMPRESSION: 1. No acute intracranial abnormality is appreciated 2. Right sphenoid sinus disease ASSESSMENT: ASPECTS ([place] Stroke Program Early CT Score) is 10. ADDENDUM: 06/03/24 0659 THIS REPORT CONTAINS FINDINGS THAT MAY BE CRITICAL TO PATIENT CARE. The findings were verbally communicated via telephone conference with STACY SERNA at 6:57 AM CDT on 06/03/2024. The findings were acknowledged and understood. Chest X-Ray 06/03/24 07:43 IMPRESSION: 1. Right IJ central venous catheter tip in the superior vena cava. 2. Left lower lobe infiltrate Laboratory Results WBC 35.27 10^3/uL (3.29-11.43) H* 06/04/24 05:10 Corrected WBC Cancelled 06/04/24 03:50 RBC 3.90 10^6/uL (3.85-5.65) 06/04/24 05:10 Hgb 10.70 g/dL (11.27-16.99) L 06/04/24 05:10 Hct 34.3 % (37-53) L 06/04/24 05:10 MCV 87.9 fl (82-101) 06/04/24 05:10 MCH 27.4 pg (27-33) 06/04/24 05:10 MCHC 31.2 g/dL (30-55) 06/04/24 05:10 RDW 17.5 % (12.1-15.1) H 06/04/24 05:10 Plt Count 156 10^3/cmm (157-399) L 06/04/24 05:10 MPV 10.3 fL (7.4-10.4) 06/04/24 05:10 Gran % Cancelled 06/04/24 03:50 Neut % (Auto) Cancelled 06/04/24 03:50 Lymph % (Auto) Not Reportable 06/04/24 05:10 [place] % (Auto) Not Reportable 06/04/24 05:10 Eos % (Auto) Cancelled 06/04/24 03:50 Baso % (Auto) Cancelled 06/04/24 03:50 Reticulocyte % (Auto) 1.8 % (0.5-2.0) 06/03/24 05:50 Neut # (Auto) Cancelled 06/04/24 03:50 Lymph # (Auto) Not Reportable 06/04/24 05:10 [place] # (Auto) Not Reportable 06/04/24 05:10 Eos # (Auto) Cancelled 06/04/24 03:50 Baso # (Auto) Cancelled 06/04/24 03:50 Absolute Gran (auto) Cancelled 06/04/24 03:50 Nucleated RBC % (auto) Cancelled 06/04/24 03:50 Total Counted 100 (0-100) 06/04/24 05:10 Atypical Lymphs % 0.0 % (0-5) 06/04/24 05:10 Absolute Neutrophils 28.2 10^3/cmm (1.4-6.5) H 06/04/24 05:10 Segmented Neutrophils 62 % 06/04/24 05:10 Band Neutrophils 18.0 % 06/04/24 05:10 Absolute Lymphocytes 1.4 10^3/cmm (1.2-3.4) 06/04/24 05:10 Lymphocytes (Manual) 4 % 06/04/24 05:10 Monocytes (Manual) 2.0 % 06/04/24 05:10 Absolute Monocytes 0.7 10^3/cmm (0.1-0.6) H 06/04/24 05:10 Eosinophils (Manual) 0 % 06/04/24 05:10 Absolute Eosinophils 0.0 10^3/cmm (0.0-0.7) 06/04/24 05:10 Basophils (Manual) 0.0 % 06/04/24 05:10 Absolute Basophils 0.0 10^3/cmm (0.0-0.2) 06/04/24 05:10 Metamyelocytes 14.0 % 06/04/24 05:10 Nucleated RBCs # Cancelled 06/04/24 03:50 Platelet Estimate Normal (Normal) 06/04/24 05:10 PT 17.00 SECONDS (12.1-14.9) H 06/03/24 10:28 INR 1.29 (0.8-1.2) H 06/03/24 10:28 Fibrinogen Cancelled 06/03/24 16:28 Fibrin Degrad Products Cancelled 06/03/24 16:28 D-Dimer Cancelled 06/03/24 16:28 Specimen Type Arterial 06/03/24 06:21 Sample Site Brachial, left 06/03/24 06:21 ABG pH 7.43 (7.35-7.45) 06/03/24 06:21 ABG pCO2 33.3 mmHg (35-45) L 06/03/24 06:21 ABG pO2 59.9 mmHg (80.0-100.0) L 06/03/24 06:21 ABG HCO3 22.0 mmol/L (22-26) 06/03/24 06:21 ABG Base Excess -1.7 mmol/L (-2.0-2.0) 06/03/24 06:21 Rory Test N/a 06/03/24 06:21 Hematocrit 38.0 % (42-52) L 06/03/24 06:21 O2 Delivery Device Oxy mask 06/03/24 06:21 O2 Liters/Min 10.0 % 06/03/24 06:21 Parachute Inspector ID Amh 06/03/24 06:21 Sodium 143 mmol/L (136-145) 06/04/24 05:10 Potassium 3.1 mmol/L (3.5-5.1) L 06/04/24 05:10 Chloride 109 mmol/L (98-107) H 06/04/24 05:10 Carbon Dioxide 19 mmol/L (22-29) L 06/04/24 05:10 Anion Gap 18.1 (5-19) 06/04/24 05:10 BUN 45 mg/dL (8-23) H 06/04/24 05:10 Creatinine 1.9 mg/dL (0.7-1.2) H 06/04/24 05:10 GFR Calculation Not Reportable 06/04/24 05:10 Glucose 238 mg/dL (65-115) H 06/04/24 05:10 Calculated Osmolality 315 mOsm/kg (285-295) H 06/04/24 05:10 Lactic Acid 5.0 mmol/L (0.5-2.2) H* 06/03/24 05:50 Lactic Acid (Sepsis) 3.9 mmol/L (0.5-2.2) H 06/03/24 08:54 Calcium 7.8 mg/dL (8.5-10.5) L 06/04/24 05:10 Phosphorus 3.7 mg/dL (2.5-4.5) 06/04/24 05:10 Magnesium 1.5 mg/dL (1.7-2.3) L 06/04/24 05:10 Iron 29 ug/dL (59-158) L 06/03/24 05:50 TIBC 268 mcg/dl 06/03/24 05:50 % Saturation 10.8 % (20-50) L 06/03/24 05:50 Unsat Iron Binding 239 ug/dL (112-347) 06/03/24 05:50 Total Bilirubin 0.5 mg/dL (0.15-1.2) 06/04/24 05:10 AST 19 U/L (0-40) 06/04/24 05:10 ALT 7 U/L (0-41) 06/04/24 05:10 Alkaline Phosphatase 65 U/L (40-130) 06/04/24 05:10 Lactate Dehydrogenase 228 U/L (135-225) H 06/03/24 05:50 Troponin T Baseline 48 ng/L (0-15) H 06/03/24 16:28 Troponin T 120 Minute 43.60 ng/L (0-15) H 06/03/24 18:16 Delta Troponin T -4.40 ABS# (0-10) L 06/03/24 18:16 Troponin T Hi Sens 6Hr 43.83 ng/L (0-15) H 06/03/24 22:16 Troponin T Hi Sens 6Hr Delta -4.17 ng/L (0-12) L 06/03/24 22:16 Total Protein 7.0 g/dL (6.6-8.7) 06/04/24 05:10 Albumin 3.1 g/dL (3.5-5.2) L 06/04/24 05:10 Globulin 3.9 g/dL (1.3-4.6) 06/04/24 05:10 Triglycerides 148 mg/dL (0-150) 06/04/24 05:10 Cholesterol 87 mg/dL (0-200) 06/04/24 05:10 LDL Cholesterol, Calc 31 mg/dL (50-129) L 06/04/24 05:10 HDL Cholesterol 26 mg/dL (60-100) L 06/04/24 05:10 LDL/HDL Ratio 1.19 RATIO (0.00-3.22) 06/04/24 05:10 Cholesterol/HDL Ratio 3.35 mg/dL (1.0-5.00) 06/04/24 05:10 Folate 5.6 ng/mL (4.5-32.2) 06/04/24 05:10 Procalcitonin 95.96 ng/mL (0-0.5) H 06/04/24 05:10 Random Cortisol 104.80 ug/dL (2.47-19.5) H 06/03/24 10:28 Urine Color Red (Yellow) A 06/03/24 12:10 Urine Appearance Turbid (CLEAR) A 06/03/24 12:10 Urine pH TNP 06/03/24 12:10 Ur Specific [place] Not Reportable 06/03/24 12:10 Urine Protein Not Reportable 06/03/24 12:10 Urine Glucose (UA) Not Reportable 06/03/24 12:10 Urine Ketones Not Reportable 06/03/24 12:10 Urine Blood Not Reportable 06/03/24 12:10 Urine Nitrate Not Reportable 06/03/24 12:10 Urine Bilirubin Not Reportable 06/03/24 12:10 Urine Urobilinogen Not Reportable 06/03/24 12:10 Ur Leukocyte Esterase Not Reportable 06/03/24 12:10 Urine RBC >100 /hpf (0-2) H 06/03/24 12:10 Urine WBC >100 /hpf (0-5) H 06/03/24 12:10 Ur Squamous Epith Cells 0-4 /hpf (0-5) H 06/03/24 12:10 Amorphous Sediment Not Reportable 06/03/24 12:10 Urine Bacteria 1+ /hpf (NONE) H 06/03/24 12:10 Nasal MRSA (PCR) [place] detected (Negative) A 06/03/24 12:50 Adenovirus (PCR) Not detected (NOT DETECT) 06/03/24 12:50 C. pneumoniae DNA (PCR) Not detected (NOT DETECT) 06/03/24 12:50 Coronavirus 229E (PCR) Not detected (NOT DETECT) 06/03/24 12:50 Human Metapneumovir PCR Not detected (NOT DETECT) 06/03/24 12:50 Influenza A (H1) PCR Not detected (NOT DETECT) 06/03/24 12:50 Influenza A (PCR) Negative (Negative) 06/03/24 06:13 Influ A (H1/09) PCR Not detected (NOT DETECT) 06/03/24 12:50 Influenza A (H3) PCR Not detected (NOT DETECT) 06/03/24 12:50 Influenza Type A (PCR) Not detected (NOT DETECT) 06/03/24 12:50 Influenza Type B (PCR) Not detected (NOT DETECT) 06/03/24 12:50 M. pneumoniae (PCR) Not detected (NOT DETECT) 06/03/24 12:50 Parainfluenza 1 (PCR) Not detected (NOT DETECT) 06/03/24 12:50 Parainfluenza 2 (PCR) Not detected (NOT DETECT) 06/03/24 12:50 Parainfluenza 3 (PCR) Not detected (NOT DETECT) 06/03/24 12:50 Parainfluenza 4 (PCR) Not detected (NOT DETECT) 06/03/24 12:50 RSV (PCR) Negative (Negative) 06/03/24 06:13 RSV Type A (PCR) Not detected (NOT DETECT) 06/03/24 12:50 RSV Type B (PCR) Not detected (NOT DETECT) 06/03/24 12:50 Entero/Rhino (PCR) Not detected (NOT DETECT) 06/03/24 12:50 SARS-CoV-2 (PCR) Not detected (NOT DETECT) 06/03/24 12:50 Blood Type AB Negative 06/03/24 05:50 Rho(D) Type Rh negative 06/03/24 05:50 Antibody Screen Negative 06/03/24 05:50 Crossmatch See Detail 06/03/24 05:50 Vitals Last Vital Signs Temp 97.5 F L 06/05/24 07:55 Pulse 84 06/05/24 07:55 Resp 16 06/05/24 07:55 BP 90/62 06/05/24 07:55 Pulse Ox 90 06/05/24 07:55 O2 Del Method Room Air 06/05/24 07:55 O2 Flow Rate 40 06/04/24 11:29 FiO2 40 06/04/24 11:29 Discharge Plan Discharge Patient Disposition: Xfer SNF Condition: Stable Prescriptions: New linezolid 600 mg Tablet 600 mg PO Q12H 14 Days Qty: 28 0RF levofloxacin 750 mg Tablet 750 mg PO DAILY@0600 7 Days Qty: 7 0RF Continued terazosin 1 mg capsule 1 mg PO BID gabapentin 300 mg capsule 300 mg PO BEDTIME duloxetine 20 mg capsule,delayed release(DR/EC) 20 mg PO BID hydrocodone-acetaminophen 5-325 mg tablet 1 - 2 tab PO .Q4-6H PRN (Reason: pain) 7 Days Qty: 40 0RF cyanocobalamin (vitamin B-12) [Vitamin B-12] 100 mcg Tablet 100 mcg PO DAILY cholecalciferol (vitamin D3) [Vitamin D3] 25 mcg (1,000 unit) Tablet 25 mcg PO DAILY levothyroxine 125 mcg Tablet 125 mcg PO DAILY olopatadine 0.2 % Drops 1 drp OPHTHALMIC (EYE) DAILY Breztri Aerosphere 160-9-4.8 mcg/actuation Hfa Aerosol Inhaler 2 inh INHALATION BID Jardiance 10 mg tablet 10 mg PO DAILY 30 Days Qty: 30 0RF Discontinued melatonin 10 mg capsule 10 mg PO DAILY atorvastatin 20 mg tablet 10 mg PO DAILY furosemide 80 mg tablet 40 mg PO BID acetaminophen 650 mg tablet extended release 650 mg PO Q12H Eliquis 5 mg tablet 5 mg PO BID carvedilol 6.25 mg tablet 6.25 mg PO BID Qty: 180 3RF Rx Instructions: with food famotidine 20 mg tablet 20 mg PO BID lisinopril 2.5 mg tablet 2.5 mg PO DAILY nitroglycerin [Nitrostat] 0.4 mg tablet, sublingual 0.4 mg SUBLINGUAL Q5M PRN (Reason: chest pain) Qty: 25 3RF Rx Instructions: Place one tab under the tongue for chest pain. Use 5 mins apart up to 3 tabs total. aspirin [Niall Low Dose Aspirin] 81 mg Tablet,Delayed Release (Dr/Ec) 81 mg PO DAILY Cbc Gummies 1 gummy PO BEDTIME PRN (Reason: sleep or pain ) gemfibrozil 600 mg Tablet 600 mg PO BID Rx Instructions: take with meals naloxone 0.4 mg/mL Solution 0.4 mg SUBCUT Q2M PRN (Reason: overdose) Rx Instructions: NTExceed 10 mg total dose/episode tamsulosin 0.4 mg Capsule 0.4 mg PO DAILY Rx Instructions: 30 minutes afte the same meal daily Discharge Orders: Discharge Order (Routine); Ordered 06/05/24 Ordered By: Aamir Larson Referrals: Sulema Barraza APRN [Primary Care Provider] - Angel Conte MD [Physician] - 7-10 days Discharge Diet: Advance as tolerated Discharge Activity: Resume usual activity Patient Instructions: Levofloxacin (By mouth) (Levaquin, Levaquin Leva-samuel), Linezolid (By mouth), Comfort Measures (GEN), Opioid Safety Discharge Attestations Time Spent in Discharge Care*: greater than 30 min Quality Metrics Clinical Quality Measures [ No reported AMI, CVA or VTE this stay] Coding Level of Care Code 05040 Total time (in minutes) for Discharge: 45 Diagnoses Acute hypoxemic respiratory failure J96.01 Pneumonia J18.9 UTI (urinary tract infection) N39.0 Anemia D64.9 Hematuria R31.9 Ischemic cardiomyopathy I25.5 Leukopenia D72.819 Chronic indwelling Bingham catheter Z97.8 COPD (chronic obstructive pulmonary disease) J44.9 S/P CABG (coronary artery bypass graft) Z95.1 SVT (supraventricular tachycardia) I47.1 H/O cardiac radiofrequency ablation Z98.890 History of DVT (deep vein thrombosis) Z86.718 Failure to thrive Staphylococcus aureus bacteremia R78.81; B95.61 Need for comfort care
[2024-06-05] MEDS: levoFLOXacin 750 mg Tablet PO (11:25)
[2024-06-05] MEDS: linezolid 600 mg Tablet PO (11:25)
--- NOTE | 2024-06-05 12:28 | PC.NURSE ---
Report called to Daina at [facility]. All questions answered.
[2024-06-05 12:55] VITALS: BP 90/62; PULSE 84; TEMP 36.4; O2SAT 90
[2024-06-14 06:14] LABS: Fibrinogen Degradation Product 20 mcg/mL (LESS THAN 5)
== END 2024-06-05 12:56 | disposition intermediate care facility (04) | DRG 871 ==
LOC: ER 08:00 → ICU 08:13 → MEDSURG 06-04 21:23
PROVIDERS: Admitting Provider Student in an Organized Health Care Education/Training Program; Emergency Provider Emergency Medicine; PCP Nurse Practitioner Family; Visit Provider Family Medicine
DX: A41.01 Sepsis due to Methicillin susceptible Staphylococcus aureus (principal); J69.0 Pneumonitis due to inhalation of food and vomit; R65.21 Severe sepsis with septic shock; J96.01 Acute respiratory failure with hypoxia; N39.0 Urinary tract infection, site not specified; N17.9 Acute kidney failure, unspecified; D64.9 Anemia, unspecified; I25.5 Ischemic cardiomyopathy; J44.9 Chronic obstructive pulmonary disease, unspecified; R62.7 Adult failure to thrive; Z68.25 Body mass index [BMI] 25.0-25.9, adult; Z51.5 Encounter for palliative care; I25.10 Atherosclerotic heart disease of native coronary artery without angina pectoris; I12.9 Hypertensive chronic kidney disease with stage 1 through stage 4 chronic kidney disease, or unspecified chronic kidney disease; E11.22 Type 2 diabetes mellitus with diabetic chronic kidney disease; N18.9 Chronic kidney disease, unspecified; I48.91 Unspecified atrial fibrillation; K59.00 Constipation, unspecified; F17.210 Nicotine dependence, cigarettes, uncomplicated; E03.9 Hypothyroidism, unspecified; Z96.0 Presence of urogenital implants; Z95.1 Presence of aortocoronary bypass graft; Z86.718 Personal history of other venous thrombosis and embolism; Z79.01 Long term (current) use of anticoagulants; Z86.711 Personal history of pulmonary embolism; Z79.82 Long term (current) use of aspirin
CPT/HCPCS: 36415; 36430; 36592; 36600; 51702; 70450; 71045; 71275; 74177; 80053; 80061; 82533; 82746; 82803; 83540; 83550; 83605; 83615; 83735; 84100; 84145; 84484; 85007; 85014; 85018; 85025; 85045; 85362; 85378; 85384; 85610; 86403; 86850; 86900; 86920; 87040; 87070; 87077; 87086; 87150; 87186; 87205; 87486; 87581; 87633; 87637; 93005; 93306; 94640; 94660; 94664; 96365; 96366; 96367; 96374; 96375; 96376; 99291; J1720; J2060; J2470; J2543; J2598; J2919; J3370; J3490; J7030; J7040; J7050; J7608; J7614; J7626; J7644; J9999; P9016; P9045

== ENCOUNTER 2024-06-12 21:04 | Emergency (ER) | payer OTHER, MEDICARE, SELFPAY ==
[2024-06-12 21:07] VITALS: BP 98/70; PULSE 103; RESP 18; TEMP 36.9; O2SAT 86; BMI 24.4
--- NOTE | 2024-06-12 21:50 | W.ED.GENADLT ---
HPI - General Adult General: Chief complaint: General Medical Stated complaint: PAIN ALL OVER Time Seen by Provider: 06/12/24 21:05 History of Present Illness: 78-year-old man with past medical history of CAD status post CABG, hypertension, COPD, CKD, DVT, atrial fibrillation, SVT, status post ablation, chronic indwelling Bingham catheter, failure to thrive, recent hospitalization at [facility] for life-threatening nosebleed requiring trans palatal approach, creating permanent opening, currently at longterm facility,who presents to the emergency room from care home. Apparently he is on hospice and has been receiving morphine and Ativan. Patient says he is having pain all over and insist that he come to the emergency room. He tells me that the bed there is very uncomfortable and that is causing his pain. EMS reported that he did not want to have any more morphine until he was evaluated. Related Data Home Medications ?Medication ?Instructions ?Recorded ?Confirmed terazosin 1 mg capsule 1 mg PO BID 05/07/19 06/03/24 duloxetine 20 mg capsule,delayed 20 mg PO BID 04/19/24 06/03/24 release gabapentin 300 mg capsule 300 mg PO BEDTIME 04/19/24 06/03/24 budesonide 160 mcg-glycopyr 9 2 inh inhalation BID 05/30/24 06/03/24 mcg-formot 4.8 mcg/actuation HFA inhaler (Breztri Aerosphere) cholecalciferol (vitamin D3) 25 25 mcg PO DAILY 05/30/24 06/03/24 mcg (1,000 unit) tablet (Vitamin D3) cyanocobalamin (vitamin B-12) 100 100 mcg PO DAILY 05/30/24 06/03/24 mcg tablet (Vitamin B-12) levothyroxine 125 mcg tablet 125 mcg PO DAILY 05/30/24 06/03/24 olopatadine 0.2 % eye drops 1 drp ophthalmic (eye) DAILY 05/30/24 06/03/24 Previous Rx's ?Medication ?Instructions ?Recorded hydrocodone 5 mg-acetaminophen 325 1 - 2 tab PO .Q4-6H PRN pain 7 02/13/24 mg tablet days #40 tabs empagliflozin 10 mg tablet 10 mg PO DAILY 30 days #30 tabs 05/31/24 (Jardiance) linezolid 600 mg tablet 600 mg PO Q12H 14 days #28 tabs 06/05/24 Allergies Allergy/AdvReac Type Severity Reaction Status Date / Time amiodarone Allergy Severe ALGY-Difficulty Verified 05/30/24 00:38 Breathing adhesive tape Allergy rips skin Verified 05/30/24 00:38 Sulfa (Sulfonamide Allergy Unknown Verified 05/30/24 00:38 Antibiotics) gabapentin AdvReac Mild INCREASED Verified 05/30/24 00:38 BURNING IN FEET Review of Systems Narrative: Constitutional symptoms: Negative except as documented in HPI. Skin symptoms: Negative except as documented in HPI. Eye symptoms: Negative except as documented in HPI. ENMT symptoms: Negative except as documented in HPI. Respiratory symptoms: Negative except as documented in HPI. Cardiovascular symptoms: Negative except as documented in HPI. Gastrointestinal symptoms: Negative except as documented in HPI. Genitourinary symptoms: Negative except as documented in HPI. Musculoskeletal symptoms: Negative except as documented in HPI. Neurologic symptoms: Negative except as documented in HPI. Psychiatric symptoms: Negative except as documented in HPI. Endocrine symptoms: Negative except as documented in HPI. PFSH ED PFSH: Medical History (Updated 06/12/24 @ 22:58 by Daylin Weems MD) Chronic indwelling Bingham catheter Facet arthropathy, cervical Encounter for long-term opiate analgesic use History of nonmelanoma skin cancer Spinal stenosis of cervical region Cervical radiculitis Amiodarone toxicity Sleep apnea Ischemic cardiomyopathy Tobacco abuse SVT (supraventricular tachycardia) History of pulmonary embolism History of DVT (deep vein thrombosis) Chronic kidney disease (CKD) PAD (peripheral artery disease) Diabetes HTN (hypertension) COPD (chronic obstructive pulmonary disease) ASHD (arteriosclerotic heart disease) CHF (congestive heart failure) Hypothyroidism Anticoagulant long-term use Atrial fibrillation Surgical History (Updated 06/06/24 @ 00:00 by ZOYA Simons) Hx of neck surgery 12/13/19 Neftali-removed 2 discs and placed 2 plastic discs S/P CABG (coronary artery bypass graft) H/O cardiac radiofrequency ablation Family History Grandmother Cancer Father Diabetes Mother Diabetes Brother Diabetes Hypertension Sister Diabetes Denies family history of Anesthesia complication Bleeding disorder Social History Smoking and tobacco/nicotine status: current every day tobacco/nicotine user cigarettes Packs smoked per day: 1 Alcohol intake: former Substance/Drug Use: never Caregiver/support person: Yes Household members: spouse Marital status: service: Yes branch: [employer] Physical Exam Narrative: EXAM NARRATIVE: General: Alert, no acute distress. Skin: Warm, dry. Head: Normocephalic, atraumatic. Neck: Supple, trachea midline. Eye: Extraocular movements are intact. Ears, nose, mouth and throat: mucosa moist. Cardiovascular: Regular, Normal peripheral perfusion. Edema with venous stasis changes. Some wounds on his legs. Respiratory: Coarse breath sounds. Patient is oxygen dependent. Gastrointestinal: Soft, Nontender, Non distended. Bingham catheter is in place. Musculoskeletal: Normal ROM, no deformity. Neurological: Alert and oriented, No focal neurological deficit observed. Psychiatric: Cooperative, appropriate mood & affect. Course Vital Signs: Vital signs: Vital Signs Temperature 98.4 F 06/12/24 21:07 Pulse Rate 97 06/12/24 22:47 Respiratory Rate 14 06/12/24 22:47 Blood Pressure 105/51 06/12/24 22:47 Pulse Oximetry 93 06/12/24 22:47 Oxygen Delivery Me thod Room Air 06/12/24 21:07 MDM - General Adult Medical Decision Making Lab Review: Laboratory results were reviewed and interpreted by myself the emergency room physician. Flu COVID and RSV are negative I reviewed the patient's medical record. past medical history of CAD status post CABG, hypertension, COPD, CKD, DVT, atrial fibrillation, SVT, status post ablation, chronic indwelling Bingham catheter, failure to thrive, recent hospitalization at [facility] for life-threatening nosebleed requiring trans palatal approach, creating permanent opening, currently at longterm facility, Reexamination: Patient remained stable. No increased work of breathing. No altered mental status. No focal motor deficits. Seems that his major complaint was that he is uncomfortable in his bed there. I advised that he take the medications that is provided for him by hospice. Morphine and Ativan. Assessment and plan: Generalized pain Comfort measures only - Discharged home - Discussed plan with patient. Answered any questions. - Evaluation and treatment of this problem were appropriate in the emergency setting. Lab Data 06/12/24 22:46 06/12/24 22:18 Laboratory Results WBC 10.31 10^3/uL (3.29-11.43) 06/12/24 22:46 Corrected WBC Cancelled 06/12/24 22:18 RBC 4.34 10^6/uL (3.85-5.65) 06/12/24 22:46 Hgb 11.90 g/dL (11.27-16.99) 06/12/24 22:46 Hct 38.6 % (37-53) 06/12/24 22:46 MCV 88.9 fl (82-101) 06/12/24 22:46 MCH 27.4 pg (27-33) 06/12/24 22:46 MCHC 30.8 g/dL (30-55) 06/12/24 22:46 RDW 16.8 % (12.1-15.1) H 06/12/24 22:46 Plt Count 327 10^3/cmm (157-399) 06/12/24 22:46 MPV 9.2 fL (7.4-10.4) 06/12/24 22:46 Gran % Cancelled 06/12/24 22:18 Neut % (Auto) 74.0 % 06/12/24 22:46 Lymph % (Auto) 11.9 % 06/12/24 22:46 [place] % (Auto) 8.2 % 06/12/24 22:46 Eos % (Auto) 4.9 % 06/12/24 22:46 Baso % (Auto) 0.5 % 06/12/24 22:46 Neut # (Auto) 7.62 10^3/uL (1.8-7.7) 06/12/24 22:46 Lymph # (Auto) 1.2 10^3/uL (0.8-4.8) 06/12/24 22:46 [place] # (Auto) 0.9 10^3/uL (0.2-0.9) 06/12/24 22:46 Eos # (Auto) 0.5 10^3/uL (0.0-0.8) 06/12/24 22:46 Baso # (Auto) 0.1 10^3/uL (0.0-0.1) 06/12/24 22:46 Absolute Gran (auto) Cancelled 06/12/24 22:18 Nucleated RBC % (auto) 0 % 06/12/24 22:46 Nucleated RBCs # 0.0 /100WBC 06/12/24 22:46 Sodium 145 mmol/L (136-145) 06/12/24 22:18 Potassium 3.3 mmol/L (3.5-5.1) L 06/12/24 22:18 Chloride 104 mmol/L (98-107) 06/12/24 22:18 Carbon Dioxide 27 mmol/L (22-29) 06/12/24 22:18 Anion Gap 17.3 (5-19) 06/12/24 22:18 BUN 21 mg/dL (8-23) 06/12/24 22:18 Creatinine 0.9 mg/dL (0.7-1.2) 06/12/24 22:18 GFR Calculation Not Reportable 06/12/24 22:18 Glucose 145 mg/dL (65-115) H 06/12/24 22:18 Calculated Osmolality 306 mOsm/kg (285-295) H 06/12/24 22:18 Calcium 8.3 mg/dL (8.5-10.5) L 06/12/24 22:18 Total Bilirubin 0.3 mg/dL (0.15-1.2) 06/12/24 22:18 AST 12 U/L (0-40) 06/12/24 22:18 ALT < 5 U/L (0-41) 06/12/24 22:18 Alkaline Phosphatase 76 U/L (40-130) 06/12/24 22:18 Total Protein 6.1 g/dL (6.6-8.7) L 06/12/24 22:18 Albumin 3.2 g/dL (3.5-5.2) L 06/12/24 22:18 Globulin 2.9 g/dL (1.3-4.6) 06/12/24 22:18 Influenza A (PCR) Negative (Negative) 06/12/24 21:35 Influenza Type B (PCR) Negative (Negative) 06/12/24 21:35 RSV (PCR) Negative (Negative) 06/12/24 21:35 SARS-CoV-2 (PCR) Negative (Negative) 06/12/24 21:35 No radiology studies performed this visit Discharge Plan Discharge Patient Disposition: Home Clinical Impression: Generalized pain, Comfort measures only status Condition: Stable Prescriptions: No Action terazosin 1 mg capsule 1 mg PO BID gabapentin 300 mg capsule 300 mg PO BEDTIME duloxetine 20 mg capsule,delayed release(DR/EC) 20 mg PO BID hydrocodone-acetaminophen 5-325 mg tablet 1 - 2 tab PO .Q4-6H PRN (Reason: pain) 7 Days Qty: 40 0RF linezolid 600 mg Tablet 600 mg PO Q12H 14 Days Qty: 28 0RF cyanocobalamin (vitamin B-12) [Vitamin B-12] 100 mcg Tablet 100 mcg PO DAILY cholecalciferol (vitamin D3) [Vitamin D3] 25 mcg (1,000 unit) Tablet 25 mcg PO DAILY levothyroxine 125 mcg Tablet 125 mcg PO DAILY olopatadine 0.2 % Drops 1 drp OPHTHALMIC (EYE) DAILY Breztri Aerosphere 160-9-4.8 mcg/actuation Hfa Aerosol Inhaler 2 inh INHALATION BID Jardiance 10 mg tablet 10 mg PO DAILY 30 Days Qty: 30 0RF Discharge Orders: Discharge ED (Routine); Ordered 06/12/24 Ordered By: Daylin Weems Referrals: Sulema Barraza APRN [Primary Care Provider] - Discharge Diet: Usual diet Discharge Activity: Increase activity as tolerated Patient Instructions: Opioid Safety, Pain Management Activity Restrictions/Additional Instructions: Thank you for choosing [facility] for your healthcare needs today. Please realize this is an emergency room and that we are providing you with a medical screening exam and this may not be complete and all inclusive of all the testing and or work up that you may need to determine your ailment or severity of your illness. You have been screened and evaluated and felt safe for discharge. Health conditions do change or evolve sometimes and as such it is important that you follow up with your Primary Doctor to be re checked, 3-5 days is a general good time frame for follow up. You are always welcome to return to the ED for re assessment if your symptoms are worsening or you have new concerns Print Language: Hebrew Coding Level of Care Code ED Fire Extinguisher Charger for Reza Jiménez
[2024-06-12 22:19] LABS: Influenza A NEGATIVE (Negative); Influenza B NEGATIVE (Negative); Respiratory Syncytial Virus Ce NEGATIVE (Negative); SARS-CoV-2 PCR NEGATIVE (Negative)
[2024-06-12 22:39] LABS: Alanine Aminotransferase < 5 U/L (0-41); Albumin Level 3.2 g/dL (3.5-5.2); Alkaline Phosphatase 76 U/L (40-130); Blood Urea Nitrogen 21 mg/dL (8-23); Calcium 8.3 mg/dL (8.5-10.5); Carbon Dioxide 27 mmol/L (22-29); Chloride 104 mmol/L (98-107); Creatinine Clr Calc Pharmacy 78.2408; Globulin 2.9 g/dL (1.3-4.6); Glucose 145 mg/dL (65-115); Osmolality Calculated 306 mOsm/kg (285-295); Sodium 145 mmol/L (136-145); Total Bilirubin 0.3 mg/dL (0.15-1.2); Total Protein 6.1 g/dL (6.6-8.7)
[2024-06-12 22:41] LABS: Anion Gap 17.3 (5-19); Aspartate Amino Transferase 12 U/L (0-40); Potassium 3.3 mmol/L (3.5-5.1)
[2024-06-12 22:47] VITALS: BP 105/51; PULSE 97; RESP 14; O2SAT 93
[2024-06-12 22:49] LABS: Basophils # 0.1 10^3/uL (0.0-0.1); Basophils % 0.5 %; Eosinophils # 0.5 10^3/uL (0.0-0.8); Eosinophils % 4.9 %; Hematocrit 38.6 % (37-53); Lymphocytes # 1.2 10^3/uL (0.8-4.8); Lymphocytes % 11.9 %; Mean Corpuscular HGB Conc 30.8 g/dL (30-55); Mean Corpuscular Hemoglobin 27.4 pg (27-33); Mean Corpuscular Volume 88.9 fl (82-101); Mean Platelet Volume 9.2 fL (7.4-10.4); Monocytes # 0.9 10^3/uL (0.2-0.9); Monocytes % 8.2 %; Neutrophils # 7.62 10^3/uL (1.8-7.7); Nucleated Red Blood Cells % 0 %; Platelet Count 327 10^3/cmm (157-399); Red Blood Count 4.34 10^6/uL (3.85-5.65); Red Cell Distribution Width 16.8 % (12.1-15.1); White Blood Count 10.31 10^3/uL (3.29-11.43)
[2024-06-12] MEDS: HYDROmorphone 1 mg/mL INJ 1ml IVP (23:08)
[2024-06-12 23:42] VITALS: BP 105/42; PULSE 88; RESP 16; O2SAT 94
== END 2024-06-12 23:39 | disposition home or self-care (01) ==
PROVIDERS: Emergency Provider Emergency Medicine; PCP Nurse Practitioner Family
DX: R52 Pain, unspecified (principal); Z51.5 Encounter for palliative care; Z11.52 Encounter for screening for COVID-19; F17.210 Nicotine dependence, cigarettes, uncomplicated; J44.9 Chronic obstructive pulmonary disease, unspecified; Z85.828 Personal history of other malignant neoplasm of skin; E11.22 Type 2 diabetes mellitus with diabetic chronic kidney disease; I13.0 Hypertensive heart and chronic kidney disease with heart failure and stage 1 through stage 4 chronic kidney disease, or unspecified chronic kidney disease; N18.9 Chronic kidney disease, unspecified; I50.9 Heart failure, unspecified; Z95.1 Presence of aortocoronary bypass graft
CPT/HCPCS: 36415; 80053; 85025; 87637; 96374; 99284; J1171

== ENCOUNTER 2024-06-26 10:24 | Outpatient (CLI) | payer OTHER, SELFPAY ==
--- NOTE | 2024-06-26 10:29 | CT_ITS ---
WS: [id number] CT ABDOMEN WITHOUT CONTRAST HISTORY: BILATERAL ADRENAL MASSES Contiguous single phase 5 mm axial imaging performed to the abdomen. Oral contrast is not been provided. Coronal and sagittal reformats are submitted. All CT scans at [facility] use at least one of these dose optimization techniques: automated exposure control; mA and/or kV adjustment per patient size (includes targeted exams where dose is matched to clinical indication); or iterative reconstruction. IV CONTRAST: None. IV contrast was attempted but the bolus was extravasated into the patient's soft tissues. Patient declined further attempts at IV placement and requested the examination be done at this time. Oral contrast: No DLP: 892.45 mGy.cm COMPARISON: 06/03/2024, 05/09/2024, 01/28/2017 Lower thorax: Mediastinal and hilar calcifications. RIGHT pleural calcifications. Heart is slightly enlarged. Dependent changes at the lung bases with emphysema. Benign granuloma RIGHT middle lobe. Small hiatal hernia. Liver/biliary system: Normal size with no intrahepatic dilatation. Gallbladder: Normally distended gallbladder with gallstones. Pancreas: Atrophic. Spleen: Benign granulomata. Adrenal glands: Bilateral adrenal nodules are decreased attenuation with low Hounsfield units. RIGHT adrenal gland nodule measures 2.0 x 1.3 cm. LEFT adrenal nodule 3.8 x 2.2 cm. Right kidney: Nonobstructing calcifications lower pole. Left kidney: No obstruction. Cortical cyst upper pole as been previously described. Aorta: Mild atherosclerosis with no aneurysm. Lymphadenopathy: None. Free fluid: None. GI tract: Moderate constipation. Mild distention of the stomach with food products. Abdominal wall: Unremarkable abdominal wall. No hernia. IVC filter. Visualized osseous structures: Unremarkable. CT/CT abdomen wo con [id number] IMPRESSION: 1. Bilateral low-attenuation adrenal masses. Unable to achieve IV access for p ostcontrast imaging. No additional imaging of the adrenal mass is necessary. Th suman adrenal masses have been stable since 2017 and patient has declined further imaging. 2. IVC filter. 3. Cholelithiasis without acute cholecystitis. 4. RIGHT pleural calcifications.
== END 2024-06-26 10:25 | disposition home or self-care (01) ==
LOC: RAD 10:25
PROVIDERS: PCP Nurse Practitioner Family; Visit Provider Internal Medicine
DX: E27.8 Other specified disorders of adrenal gland (principal); K80.20 Calculus of gallbladder without cholecystitis without obstruction; J94.8 Other specified pleural conditions; R93.5 Abnormal findings on diagnostic imaging of other abdominal regions, including retroperitoneum; R91.8 Other nonspecific abnormal finding of lung field; J43.9 Emphysema, unspecified; I51.7 Cardiomegaly; J84.10 Pulmonary fibrosis, unspecified; K44.9 Diaphragmatic hernia without obstruction or gangrene; K86.89 Other specified diseases of pancreas; D73.89 Other diseases of spleen; N28.89 Other specified disorders of kidney and ureter; N28.1 Cyst of kidney, acquired; I70.0 Atherosclerosis of aorta; K59.00 Constipation, unspecified
CPT/HCPCS: 74150

== ENCOUNTER 2024-07-21 21:30 | Emergency (ER) | payer OTHER, SELFPAY ==
[2024-07-21 21:33] VITALS: BP 126/63; PULSE 82; RESP 18; TEMP 36.3; O2SAT 95; BMI 21.7
--- NOTE | 2024-07-21 21:47 | XRR_ITS ---
PROCEDURE INFORMATION: Exam: XR Chest Exam date and time: 07/21/2024 10:16 PM Age: 78 years old Clinical indication: Prior surgery; Surgery date: 6+ months; Surgery type: Cabg, stents; Peripheral edema; Cough TECHNIQUE: Imaging protocol: Radiologic exam of the chest. Views: 1 view. COMPARISON: CR XR chest 1V portable [id number] 06/03/2024 7:45 AM FINDINGS: Lungs: Decreased lung volumes with worsening bibasilar opacities which may represent atelectasis or developing consolidations. Stable right basilar calcified granuloma. Pleural spaces: No pleural effusion or pneumothorax. Heart/Mediastinum: The cardiomediastinal silhouette is stable. Bones/joints: The patient is status post sternotomy. No acute osseous abnormalities are seen. XR/XR chest 1V portable [id number] IMPRESSION: Decreased lung volumes with worsening bibasilar opacities which may represent atelectasis or developing consolidations.
[2024-07-21 22:29] LABS: Basophils # 0.1 10^3/uL (0.0-0.1); Basophils % 0.9 %; Eosinophils # 0.6 10^3/uL (0.0-0.8); Eosinophils % 6.5 %; Hematocrit 34.6 % (37-53); Lymphocytes # 1.4 10^3/uL (0.8-4.8); Lymphocytes % 14.6 %; Mean Corpuscular HGB Conc 30.3 g/dL (30-55); Mean Corpuscular Hemoglobin 26.3 pg (27-33); Mean Corpuscular Volume 86.5 fl (82-101); Monocytes # 0.7 10^3/uL (0.2-0.9); Monocytes % 7.5 %; Neutrophils # 6.94 10^3/uL (1.8-7.7); Neutrophils % 70.1 %; Nucleated Red Blood Cells % 0 %; Platelet Count 246 10^3/cmm (157-399); Red Cell Distribution Width 15.8 % (12.1-15.1); White Blood Count 9.89 10^3/uL (3.29-11.43)
[2024-07-21 22:37] VITALS: BP 131/96; PULSE 87; RESP 16; O2SAT 95
[2024-07-21 22:59] LABS: Alanine Aminotransferase < 5 U/L (0-41); Albumin Level 2.8 g/dL (3.5-5.2); Alkaline Phosphatase 93 U/L (40-130); Anion Gap 13.1 (5-19); Aspartate Amino Transferase 9 U/L (0-40); Blood Urea Nitrogen 17 mg/dL (8-23); Calcium 8.7 mg/dL (8.5-10.5); Carbon Dioxide 26 mmol/L (22-29); Chloride 105 mmol/L (98-107); Creatinine Clr Calc Pharmacy 83.9889; Globulin 3.7 g/dL (1.3-4.6); Glucose 165 mg/dL (65-115); NT Pro B Type Natriuretic Pept 415 pg/mL (0-450); Osmolality Calculated 297 mOsm/kg (285-295); Potassium 3.1 mmol/L (3.5-5.1); Sodium 141 mmol/L (136-145); Total Bilirubin 0.2 mg/dL (0.15-1.2); Total Protein 6.5 g/dL (6.6-8.7)
--- NOTE | 2024-07-21 23:57 | W.ED.EXTPRO ---
Documented by User: JACK Hicks 07/22/24 01:03 HPI - Extremity Problem General: Chief complaint: Extremity Problem,Nontraumatic Stated complaint: LEG PAIN Time Seen by Provider: 07/21/24 21:33 Source: patient, EMS and old records reviewed Mode of arrival: EMS Limitations: other (Hard of hearing) History of Present Illness: Patient is a 78-year-old male with extensive past medical history currently on comfort measures/hospice who presents to the emergency department complaining of left lower leg pain. He presents by EMS from group home, he states that he has not had his prescribed Lasix for over a month and believes this has contributed to his pain and swelling. Also has a Bingham catheter and group home staff reports less output. Patient extremely hard of hearing, making review of systems difficult to obtain however he does not endorse any chest pain or shortness of breath. Patient is not currently on any anticoagulants on review of his current med list, arrives with bilateral heel suspension boots as he has chronic ulcers. No other symptoms reported at this time, vitals within normal limits. Patient was made hospice/comfort care after discharge from hospital on 06/05 where he was seen due to septic shock and acute hypoxemic respiratory failure. Currently on Ativan as well as morphine. MD Complaint: extremity pain Onset (ago): day(s) Pain Consistency: constant Location: left and lower extremity Radiation: proximal Associated symptoms: Deny chest pain, fever(s) or rash Context: immobilization, history of DVT and recent illness Related Data Home Medications ?Medication ?Instructions ?Recorded ?Confirmed terazosin 1 mg capsule 1 mg PO BID 05/07/19 06/03/24 duloxetine 20 mg capsule,delayed 20 mg PO BID 04/19/24 06/03/24 release gabapentin 300 mg capsule 300 mg PO BEDTIME 04/19/24 06/03/24 budesonide 160 mcg-glycopyr 9 2 inh inhalation BID 05/30/24 06/03/24 mcg-formot 4.8 mcg/actuation HFA inhaler (Breztri Aerosphere) cholecalciferol (vitamin D3) 25 25 mcg PO DAILY 05/30/24 06/03/24 mcg (1,000 unit) tablet (Vitamin D3) cyanocobalamin (vitamin B-12) 100 100 mcg PO DAILY 03/19/25 03/23/25 mcg tablet (Vitamin B-12) levothyroxine 125 mcg tablet 125 mcg PO DAILY 05/30/24 06/03/24 olopatadine 0.2 % eye drops 1 drp ophthalmic (eye) DAILY 05/30/24 06/03/24 Previous Rx's ?Medication ?Instructions ?Recorded hydrocodone 5 mg-acetaminophen 325 1 - 2 tab PO .Q4-6H PRN pain 7 02/13/24 mg tablet days #40 tabs apixaban 5 mg tablet (Eliquis) 5 mg PO BID #60 tabs 07/22/24 Allergies Allergy/AdvReac Type Severity Reaction Status Date / Time amiodarone Allergy Severe ALGY-Difficulty Verified 05/30/24 00:38 Breathing adhesive tape Allergy rips skin Verified 05/30/24 00:38 Sulfa (Sulfonamide Allergy Unknown Verified 05/30/24 00:38 Antibiotics) gabapentin AdvReac Mild INCREASED Verified 05/30/24 00:38 BURNING IN FEET Review of Systems General: Reports: 10 or more systems reviewed and unremarkable except in HPI and below Const: Denies: fever(s) or chills Card: Denies: chest pain Resp: Denies: dyspnea or productive cough GI: Denies: abdominal pain, nausea, vomiting or diarrhea : Denies: flank pain Musc: Reports: extremity pain (Left lower) and extremity swelling (Left lower); Denies: neck pain, back pain, joint pain, joint swelling, joint redness, joint warmth, limited range of motion or muscle weakness Skin/Breast: Denies: rash Neuro: Denies: headache(s), numbness in extremities or weakness in extremities PFSH ED PFSH: Medical History Chronic indwelling Bingham catheter Facet arthropathy, cervical Encounter for long-term opiate analgesic use History of nonmelanoma skin cancer Spinal stenosis of cervical region Cervical radiculitis Amiodarone toxicity Sleep apnea Ischemic cardiomyopathy Tobacco abuse SVT (supraventricular tachycardia) History of pulmonary embolism History of DVT (deep vein thrombosis) Chronic kidney disease (CKD) PAD (peripheral artery disease) Diabetes HTN (hypertension) COPD (chronic obstructive pulmonary disease) ASHD (arteriosclerotic heart disease) CHF (congestive heart failure) Hypothyroidism Anticoagulant long-term use Atrial fibrillation Surgical History Hx of neck surgery 12/13/19 [place]-removed 2 discs and placed 2 plastic discs S/P CABG (coronary artery bypass graft) H/O cardiac radiofrequency ablation Family History Grandmother Cancer Father Diabetes Mother Diabetes Brother Diabetes Hypertension Sister Diabetes Denies family history of Anesthesia complication Bleeding disorder Social History Smoking and tobacco/nicotine status: current every day tobacco/nicotine user cigarettes Packs smoked per day: 1 Alcohol intake: former Substance/Drug Use: never Caregiver/support person: Yes Household members: spouse Marital status: service: Yes branch: [employer] Physical Exam Const: COMMON NORMALS: patient oriented x3, no limitations and alert GENERAL APPEARANCE: cooperative and comfortable ORIENTATION/CONSCIOUSNESS: Yes awake HENMT: COMMON NORMALS: normocephalic and atraumatic HEAD & SCALP: normocephalic and atraumatic Eye: COMMON NORMALS: Equal, round and reactive pupils present, EOMs intact bilaterally and conjunctivae normal CONJUNCTIVA: Yes conjunctivae normal PUPIL: Yes Equal, round and reactive pupils present Neck/C-Spine: COMMON NORMALS: no meningeal signs Chest: COMMONS NORMALS: normal inspection of the chest Resp: COMMON NORMALS: normal respiratory effort, No retractions, No use of accessory muscles and clear to auscultation bilaterally AUSCULTATION: clear to auscultation bilaterally Cardio: COMMON NORMALS: regular rate, S1 normal heart sound present and S2 normal heart sound present RATE: regular rate RHYTHM: abnormal rhythm irregularly irregular HEART SOUNDS: S1 normal heart sound present and S2 normal heart sound present GI: COMMON NORMALS: Soft to palpation PALPATION: Yes Soft to palpation : OTHER: Indwelling Bingham catheter draining yellow-colored urine Extremity: NARRATIVE EXTREMITY EXAM: Bilateral heel suspension boots present. Left foot is wrapped in gauze, removal of this shows heel ulcer, appearing likely stage II-III. There is mild unilateral swelling of the left lower extremity up the anterior hernandez, with associated chronic venous stasis changes. 2+ pitting edema bilaterally. Distal neurovascular status intact bilaterally with palpable DP/PT pulses. Neuro: COMMON NORMALS: patient oriented x3, moves all extremities, no focal motor deficits and no sensory deficits noted SENSORIUM/ORIENTATION: Yes alert MENINGEAL SIGNS: Yes no meningeal signs Course Vital Signs: Vital signs: Vital Signs Temperature 97.4 F L 07/21/24 21:33 Pulse Rate 72 07/22/24 01:00 Respiratory Rate 16 07/22/24 01:00 Blood Pressure 127/80 07/22/24 01:00 Pulse Oximetry 96 07/22/24 01:00 Oxygen Delivery Me thod Room Air 07/22/24 01:00 MDM - Extremity (Nontraumatic) Medical Decision Making This patient was brought in by ambulance for left lower extremity swelling and pain reported. I reviewed his prior notes, appeared that he was placed on palliative/comfort care from discharge of hospital in May where he was seen for septic shock. Patient reports to me he was unaware that he was stopped on p.o. medications, he was on warfarin for many years and then subsequently switched to Eliquis. He does have a history of DVT. On exam there is swelling and pitting edema noted to left lower extremity as well as chronic venous stasis changes. Distal pulses were palpable, also ulcer to left heel. Rest of exam unremarkable. He was alert and oriented x 4. A BMP was checked and unremarkable, all of his labs overall unremarkable, chronically low potassium when reviewing prior labs. Chest x-ray showing evidence of likely atelectasis due to no fever, shortness of breath, or abnormalities with his labs. Ultrasound was obtained of the left lower extremity showed DVT from popliteal to femoral. Being that he is reportedly comfort care, and suspect that his pain and swelling is from this clot, will begin him back on p.o. Eliquis after dose of Lovenox here. However I did speak with the patient's daughter, who is not power of environmental attorney as patient states he is his own power of environmental attorney, but daughter reports to me that she is unsure of why patient was stopped on p.o. meds and is not aware of him being comfort care. With this reported disconnect I strongly encouraged her as well as the patient to get with regular doctor and to discuss goals of care and going forward with the patient once. As mentioned, for the pain and swelling of left lower extremity will treat with Eliquis and have him discharged back to group home facility at this time. Discussed case with Dr. Patel. This patient was originally seen by Mr. Tio PA-C.? I agree with his history, evaluation, and treatment. Lab Data 07/21/24 22:16 07/21/24 22:16 Radiology Impressions Chest X-Ray 07/21/24 21:47 IMPRESSION: Decreased lung volumes with worsening bibasilar opacities which may represent atelectasis or developing consolidations. Venous Duplex 07/22/24 00:13 IMPRESSION: Extensive thrombus through the left lower extremity deep veins including the left common femoral, femoral, popliteal, and peroneal veins. Laboratory Results WBC 9.89 10^3/uL (3.29-11.43) 07/21/24 22:16 RBC 4.00 10^6/uL (3.85-5.65) 07/21/24 22:16 Hgb 10.50 g/dL (11.27-16.99) L 07/21/24 22:16 Hct 34.6 % (37-53) L 07/21/24 22:16 MCV 86.5 fl (82-101) 07/21/24 22:16 MCH 26.3 pg (27-33) L 07/21/24 22:16 MCHC 30.3 g/dL (30-55) 07/21/24 22:16 RDW 15.8 % (12.1-15.1) H 07/21/24 22:16 Plt Count 246 10^3/cmm (157-399) 07/21/24 22:16 MPV 9.0 fL (7.4-10.4) 07/21/24 22:16 Neut % (Auto) 70.1 % 07/21/24 22:16 Lymph % (Auto) 14.6 % 07/21/24 22:16 Grimes % (Auto) 7.5 % 07/21/24 22:16 Eos % (Auto) 6.5 % 07/21/24 22:16 Baso % (Auto) 0.9 % 07/21/24 22:16 Neut # (Auto) 6.94 10^3/uL (1.8-7.7) 07/21/24 22:16 Lymph # (Auto) 1.4 10^3/uL (0.8-4.8) 07/21/24 22:16 Grimes # (Auto) 0.7 10^3/uL (0.2-0.9) 07/21/24 22:16 Eos # (Auto) 0.6 10^3/uL (0.0-0.8) 07/21/24 22:16 Baso # (Auto) 0.1 10^3/uL (0.0-0.1) 07/21/24 22:16 Nucleated RBC % (auto) 0 % 07/21/24 22:16 Nucleated RBCs # 0.0 /100WBC 07/21/24 22:16 Sodium 141 mmol/L (136-145) 07/21/24 22:16 Potassium 3.1 mmol/L (3.5-5.1) L 07/21/24 22:16 Chloride 105 mmol/L (98-107) 07/21/24 22:16 Carbon Dioxide 26 mmol/L (22-29) 07/21/24 22:16 Anion Gap 13.1 (5-19) 07/21/24 22:16 BUN 17 mg/dL (8-23) 07/21/24 22:16 Creatinine 0.7 mg/dL (0.7-1.2) 07/21/24 22:16 GFR Calculation Not Reportable 07/21/24 22:16 Glucose 165 mg/dL (65-115) H 07/21/24 22:16 Calculated Osmolality 297 mOsm/kg (285-295) H 07/21/24 22:16 Calcium 8.7 mg/dL (8.5-10.5) 07/21/24 22:16 Total Bilirubin 0.2 mg/dL (0.15-1.2) 07/21/24 22:16 AST 9 U/L (0-40) 07/21/24 22:16 ALT < 5 U/L (0-41) 07/21/24 22:16 Alkaline Phosphatase 93 U/L (40-130) 07/21/24 22:16 NT-Pro-B Natriuret Pep 415 pg/mL (0-450) 07/21/24 22:16 Total Protein 6.5 g/dL (6.6-8.7) L 07/21/24 22:16 Albumin 2.8 g/dL (3.5-5.2) L 07/21/24 22:16 Globulin 3.7 g/dL (1.3-4.6) 07/21/24 22:16 All radiology interpretation(s) finalized by discharge Discharge Plan Discharge Patient Disposition: Home Clinical Impression: Deep vein thrombosis of lower extremity Qualifiers: Affected thrombotic vein of extremity: unspecified lower extremity proximal vein Chronicity: chronic Laterality: left Qualified Code(s): I82.5Y2 - 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 Condition: Stable Prescriptions: New Eliquis 5 mg tablet 5 mg PO BID Qty: 60 0RF Rx Instructions: Take 10mg (2 tabs) PO BID for 10 days, then take 5mg (1 tab) PO BID from then on until through with treatment No Action terazosin 1 mg capsule 1 mg PO BID gabapentin 300 mg capsule 300 mg PO BEDTIME duloxetine 20 mg capsule,delayed release(DR/EC) 20 mg PO BID hydrocodone-acetaminophen 5-325 mg tablet 1 - 2 tab PO .Q4-6H PRN (Reason: pain) 7 Days Qty: 40 0RF cyanocobalamin (vitamin B-12) [Vitamin B-12] 100 mcg Tablet 100 mcg PO DAILY cholecalciferol (vitamin D3) [Vitamin D3] 25 mcg (1,000 unit) Tablet 25 mcg PO DAILY levothyroxine 125 mcg Tablet 125 mcg PO DAILY olopatadine 0.2 % Drops 1 drp OPHTHALMIC (EYE) DAILY Breztri Aerosphere 160-9-4.8 mcg/actuation Hfa Aerosol Inhaler 2 inh INHALATION BID Discharge Orders: Discharge ED (Routine); Ordered 07/22/24 Ordered By: Arjun Kinsey Referrals: Sulema Barraza, MARGARETTE [Primary Care Provider, Family Practice] Patient Instructions: Deep Vein Thrombosis (ED) Activity Restrictions/Additional Instructions: Please follow-up with your regular doctor to discuss prescription of Eliquis, further goals of care, and continuation of other medications as you were voicing concern to me about. Please return with any shortness of breath, chest pain, fever, palpitations, dizziness, or other major concerns that you have. Continue other medications as prescribed. Print Language: Cambodian Coding Level of Care Code ED Clinical Researcher for Chg Fwd Documented by User: Emmanuel Patel DO 07/22/24 01:53 HPI - Extremity Problem General: Chief complaint: Extremity Problem,Nontraumatic Stated complaint: LEG PAIN Time Seen by Provider: 07/21/24 21:33 Related Data Home Medications ?Medication ?Instructions ?Recorded ?Confirmed terazosin 1 mg capsule 1 mg PO BID 05/07/19 06/03/24 duloxetine 20 mg capsule,delayed 20 mg PO BID 04/19/24 06/03/24 release gabapentin 300 mg capsule 300 mg PO BEDTIME 04/19/24 06/03/24 budesonide 160 mcg-glycopyr 9 2 inh inhalation BID 05/30/24 06/03/24 mcg-formot 4.8 mcg/actuation HFA inhaler (Breztri Aerosphere) cholecalciferol (vitamin D3) 25 25 mcg PO DAILY 05/30/24 06/03/24 mcg (1,000 unit) tablet (Vitamin D3) cyanocobalamin (vitamin B-12) 100 100 mcg PO DAILY 05/30/24 06/03/24 mcg tablet (Vitamin B-12) levothyroxine 125 mcg tablet 125 mcg PO DAILY 05/30/24 06/03/24 olopatadine 0.2 % eye drops 1 drp ophthalmic (eye) DAILY 05/30/24 06/03/24 Previous Rx's ?Medication ?Instructions ?Recorded hydrocodone 5 mg-acetaminophen 325 1 - 2 tab PO .Q4-6H PRN pain 7 02/13/24 mg tablet days #40 tabs apixaban 5 mg tablet (Eliquis) 5 mg PO BID #60 tabs 07/22/24 Allergies Allergy/AdvReac Type Severity Reaction Status Date / Time amiodarone Allergy Severe ALGY-Difficulty Verified 05/30/24 00:38 Breathing adhesive tape Allergy rips skin Verified 05/30/24 00:38 Sulfa (Sulfonamide Allergy Unknown Verified 05/30/24 00:38 Antibiotics) gabapentin AdvReac Mild INCREASED Verified 05/30/24 00:38 BURNING IN FEET [facility] PFSH: Medical History Chronic indwelling Bingham catheter Facet arthropathy, cervical Encounter for long-term opiate analgesic use History of nonmelanoma skin cancer Spinal stenosis of cervical region Cervical radiculitis Amiodarone toxicity Sleep apnea Ischemic cardiomyopathy Tobacco abuse SVT (supraventricular tachycardia) History of pulmonary embolism History of DVT (deep vein thrombosis) Chronic kidney disease (CKD) PAD (peripheral artery disease) Diabetes HTN (hypertension) COPD (chronic obstructive pulmonary disease) ASHD (arteriosclerotic heart disease) CHF (congestive heart failure) Hypothyroidism Anticoagulant long-term use Atrial fibrillation Surgical History Hx of neck surgery 12/13/19 [place]-removed 2 discs and placed 2 plastic discs S/P CABG (coronary artery bypass graft) H/O cardiac radiofrequency ablation Family History Grandmother Cancer Father Diabetes Mother Diabetes Brother Diabetes Hypertension Sister Diabetes Denies family history of Anesthesia complication Bleeding disorder Social History Smoking and tobacco/nicotine status: current every day tobacco/nicotine user cigarettes Packs smoked per day: 1 Alcohol intake: former Substance/Drug Use: never Caregiver/support person: Yes Household members: spouse Marital status: service: Yes branch: [email or web address] Course Vital Signs: Vital signs: Vital Signs Temperature 97.4 F L 07/21/24 21:33 Pulse Rate 72 07/22/24 01:00 Respiratory Rate 16 07/22/24 01:00 Blood Pressure 127/80 07/22/24 01:00 Pulse Oximetry 96 07/22/24 01:00 Oxygen Delivery Me thod Room Air 07/22/24 01:00 MDM - Extremity (Nontraumatic) Medical Decision Making This patient was originally seen by Mr. Tio PA-C.? I agree with his history, evaluation, and treatment. Lab Data 07/21/24 22:16 07/21/24 22:16 Radiology Impressions Chest X-Ray 07/21/24 21:47 IMPRESSION: Decreased lung volumes with worsening bibasilar opacities which may represent atelectasis or developing consolidations. Venous Duplex 07/22/24 00:13 IMPRESSION: Extensive thrombus through the left lower extremity deep veins including the left common femoral, femoral, popliteal, and peroneal veins. Laboratory Results WBC 9.89 10^3/uL (3.29-11.43) 07/21/24 22:16 RBC 4.00 10^6/uL (3.85-5.65) 07/21/24 22:16 Hgb 10.50 g/dL (11.27-16.99) L 07/21/24 22:16 Hct 34.6 % (37-53) L 07/21/24 22:16 MCV 86.5 fl (82-101) 07/21/24 22:16 MCH 26.3 pg (27-33) L 07/21/24 22:16 MCHC 30.3 g/dL (30-55) 07/21/24 22:16 RDW 15.8 % (12.1-15.1) H 07/21/24 22:16 Plt Count 246 10^3/cmm (157-399) 07/21/24 22:16 MPV 9.0 fL (7.4-10.4) 07/21/24 22:16 Neut % (Auto) 70.1 % 07/21/24 22:16 Lymph % (Auto) 14.6 % 07/21/24 22:16 Grimes % (Auto) 7.5 % 07/21/24 22:16 Eos % (Auto) 6.5 % 07/21/24 22:16 Baso % (Auto) 0.9 % 07/21/24 22:16 Neut # (Auto) 6.94 10^3/uL (1.8-7.7) 07/21/24 22:16 Lymph # (Auto) 1.4 10^3/uL (0.8-4.8) 07/21/24 22:16 [place]imes # (Auto) 0.7 10^3/uL (0.2-0.9) 07/21/24 22:16 Eos # (Auto) 0.6 10^3/uL (0.0-0.8) 07/21/24 22:16 Baso # (Auto) 0.1 10^3/uL (0.0-0.1) 07/21/24 22:16 Nucleated RBC % (auto) 0 % 07/21/24 22:16 Nucleated RBCs # 0.0 /100WBC 07/21/24 22:16 Sodium 141 mmol/L (136-145) 07/21/24 22:16 Potassium 3.1 mmol/L (3.5-5.1) L 07/21/24 22:16 Chloride 105 mmol/L (98-107) 07/21/24 22:16 Carbon Dioxide 26 mmol/L (22-29) 07/21/24 22:16 Anion Gap 13.1 (5-19) 07/21/24 22:16 BUN 17 mg/dL (8-23) 07/21/24 22:16 Creatinine 0.7 mg/dL (0.7-1.2) 07/21/24 22:16 GFR Calculation Not Reportable 07/21/24 22:16 Glucose 165 mg/dL (65-115) H 07/21/24 22:16 Calculated Osmolality 297 mOsm/kg (285-295) H 07/21/24 22:16 Calcium 8.7 mg/dL (8.5-10.5) 07/21/24 22:16 Total Bilirubin 0.2 mg/dL (0.15-1.2) 07/21/24 22:16 AST 9 U/L (0-40) 07/21/24 22:16 ALT < 5 U/L (0-41) 07/21/24 22:16 Alkaline Phosphatase 93 U/L (40-130) 07/21/24 22:16 NT-Pro-B Natriuret Pep 415 pg/mL (0-450) 07/21/24 22:16 Total Protein 6.5 g/dL (6.6-8.7) L 07/21/24 22:16 Albumin 2.8 g/dL (3.5-5.2) L 07/21/24 22:16 Globulin 3.7 g/dL (1.3-4.6) 07/21/24 22:16 Discharge Plan Discharge Patient Disposition: Home Clinical Impression: Deep vein thrombosis of lower extremity Qualifiers: Affected thrombotic vein of extremity: unspecified lower extremity proximal vein Chronicity: chronic Laterality: left Qualified Code(s): I82.5Y2 - 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 Condition: Stable Prescriptions: New Eliquis 5 mg tablet 5 mg PO BID Qty: 60 0RF Rx Instructions: Take 10mg (2 tabs) PO BID for 10 days, then take 5mg (1 tab) PO BID from then on until through with treatment No Action terazosin 1 mg capsule 1 mg PO BID gabapentin 300 mg capsule 300 mg PO BEDTIME duloxetine 20 mg capsule,delayed release(DR/EC) 20 mg PO BID hydrocodone-acetaminophen 5-325 mg tablet 1 - 2 tab PO .Q4-6H PRN (Reason: pain) 7 Days Qty: 40 0RF cyanocobalamin (vitamin B-12) [Vitamin B-12] 100 mcg Tablet 100 mcg PO DAILY cholecalciferol (vitamin D3) [Vitamin D3] 25 mcg (1,000 unit) Tablet 25 mcg PO DAILY levothyroxine 125 mcg Tablet 125 mcg PO DAILY olopatadine 0.2 % Drops 1 drp OPHTHALMIC (EYE) DAILY Breztri Aerosphere 160-9-4.8 mcg/actuation Hfa Aerosol Inhaler 2 inh INHALATION BID Discharge Orders: Discharge ED (Routine); Ordered 07/22/24 Ordered By: Arjun Kinsey Referrals: Sulema Barraza APRN [Primary Care Provider, Family Practice] Patient Instructions: Deep Vein Thrombosis (ED) Activity Restrictions/Additional Instructions: Please follow-up with your regular doctor to discuss prescription of Eliquis, further goals of care, and continuation of other medications as you were voicing concern to me about. Please return with any shortness of breath, chest pain, fever, palpitations, dizziness, or other major concerns that you have. Continue other medications as prescribed. Print Language: Cambodian Coding Level of Care Code ED Clinical Researcher for Reza Jiménez
[2024-07-22] VITALS: BP 120/69; PULSE 81; RESP 16; O2SAT 98
--- NOTE | 2024-07-22 00:13 | USR_ITS ---
PROCEDURE INFORMATION: Exam: US Duplex Left Lower Extremity Veins, Limited Exam date and time: 07/22/2024 12:21 AM Age: 78 years old Clinical indication: Pain; Leg, lower; Left; Additional info: Lle swelling and pain TECHNIQUE: Imaging protocol: Real-time duplex ultrasound of the left extremity with 2-D madrid scale, color Doppler flow and spectral waveform analysis including responses to compression and other maneuvers (when performed) with image documentation. Limited exam focused on the left lower extremity veins. COMPARISON: CT pelvis w con* [id number] 05/09/2024 1:41 PM FINDINGS: Left deep veins: Extensive thrombus through the left lower extremity deep veins including the left common femoral, femoral, popliteal, and peroneal veins. Superficial veins: Greater saphenous vein at the saphenofemoral junction is patent without thrombus. Soft tissues: Unremarkable. US/[place] [id number] IMPRESSION: Extensive thrombus through the left lower extremity deep veins including the left common femoral, femoral, popliteal, and peroneal veins.
[2024-07-22 01:00] VITALS: BP 127/80; PULSE 72; RESP 16; O2SAT 96
[2024-07-22] MEDS: enoxaparin 80 mg/0.8 mL Syringe SUBCUT (01:13)
[2024-07-22 02:10] VITALS: BP 130/71; PULSE 79; RESP 16; O2SAT 94
== END 2024-07-22 02:12 | disposition home or self-care (01) ==
PROVIDERS: Emergency Provider Physician Assistant; PCP Nurse Practitioner Family
DX: I82.5Y2 Chronic embolism and thrombosis of unspecified deep veins of left proximal lower extremity (principal); J44.9 Chronic obstructive pulmonary disease, unspecified; E11.9 Type 2 diabetes mellitus without complications; I11.0 Hypertensive heart disease with heart failure; I50.9 Heart failure, unspecified; Z95.1 Presence of aortocoronary bypass graft; F17.210 Nicotine dependence, cigarettes, uncomplicated
CPT/HCPCS: 36415; 71045; 80053; 83880; 85025; 93971; 96372; 99284; J1650

== ENCOUNTER → 2024-07-31 16:38 | Outpatient (BNVA) | payer MEDICARE, SELFPAY | PROVIDERS: PCP Nurse Practitioner Family; Visit Provider Nurse Practitioner | DX: N39.0 Urinary tract infection, site not specified (principal) | CPT/HCPCS: 81000 ==

== ENCOUNTER 2024-08-11 09:09 | Emergency (ER) | payer OTHER, MEDICARE, SELFPAY ==
[2024-08-11 09:10] VITALS: BP 139/75; PULSE 64; RESP 17; TEMP 36.9; O2SAT 93; BMI 22.1
--- NOTE | 2024-08-11 09:22 | W.ED.MALEGU ---
HPI - Male Genitourinary General: Chief complaint: Urogenital-Male Stated complaint: CATH PAIN Time Seen by Provider: 08/11/24 09:12 History of Present Illness: Chief complaint is pain at the tip of the penis. The patient states he has a catheter in for about 6 months. He states that he has a follow-up appointment on Tuesday with urology to have a cystoscope. He states that he has been having some pain that comes and goes at the tip of his penis and has been ongoing but this morning he had some more severe episodes and so came in. He was on antibiotics that ended on Tuesday or Tuesday. No fever. No flank pain. No abdominal pain. No chest pain shortness of breath or headache. Related Data Home Medications ?Medication ?Instructions ?Recorded ?Confirmed terazosin 1 mg capsule 1 mg PO BID 05/07/19 07/31/24 duloxetine 20 mg capsule,delayed 20 mg PO BID 04/19/24 07/31/24 release gabapentin 300 mg capsule 300 mg PO BEDTIME 04/19/24 07/31/24 budesonide 160 mcg-glycopyr 9 2 inh inhalation BID 05/30/24 07/31/24 mcg-formot 4.8 mcg/actuation HFA inhaler (Breztri Aerosphere) cholecalciferol (vitamin D3) 25 25 mcg PO DAILY 05/30/24 07/31/24 mcg (1,000 unit) tablet (Vitamin D3) cyanocobalamin (vitamin B-12) 100 100 mcg PO DAILY 05/30/24 07/31/24 mcg tablet (Vitamin B-12) levothyroxine 125 mcg tablet 125 mcg PO DAILY 05/30/24 07/31/24 olopatadine 0.2 % eye drops 1 drp ophthalmic (eye) DAILY 05/30/24 07/31/24 Previous Rx's ?Medication ?Instructions ?Recorded hydrocodone 5 mg-acetaminophen 325 1 - 2 tab PO .Q4-6H PRN pain 7 02/13/24 mg tablet days #40 tabs apixaban 5 mg tablet (Eliquis) 5 mg PO BID #60 tabs 07/22/24 cephalexin 500 mg capsule 500 mg PO TID #21 caps 07/31/24 cefdinir 300 mg capsule 300 mg PO BID 7 days #14 caps 08/11/24 Allergies Allergy/AdvReac Type Severity Reaction Status Date / Time amiodarone Allergy Severe ALGY-Difficulty Verified 07/31/24 16:22 Breathing adhesive tape Allergy rips skin Verified 07/31/24 16:22 Sulfa (Sulfonamide Allergy Unknown Verified 07/31/24 16:22 Antibiotics) gabapentin AdvReac Mild INCREASED Verified 07/31/24 16:22 BURNING IN FEET PFSH ED PFSH: Medical History Chronic indwelling Bingham catheter Facet arthropathy, cervical Encounter for long-term opiate analgesic use History of nonmelanoma skin cancer Spinal stenosis of cervical region Cervical radiculitis Amiodarone toxicity Sleep apnea Ischemic cardiomyopathy Tobacco abuse SVT (supraventricular tachycardia) History of pulmonary embolism History of DVT (deep vein thrombosis) Chronic kidney disease (CKD) PAD (peripheral artery disease) Diabetes HTN (hypertension) COPD (chronic obstructive pulmonary disease) ASHD (arteriosclerotic heart disease) CHF (congestive heart failure) Hypothyroidism Anticoagulant long-term use Atrial fibrillation Surgical History Hx of neck surgery 12/13/19 [place]-removed 2 discs and placed 2 plastic discs S/P CABG (coronary artery bypass graft) H/O cardiac radiofrequency ablation Family History Grandmother Cancer Father Diabetes Mother Diabetes Brother Diabetes Hypertension Sister Diabetes Denies family history of Anesthesia complication Bleeding disorder Social History Smoking and tobacco/nicotine status: current every day tobacco/nicotine user cigarettes Packs smoked per day: 1 Alcohol intake: former Substance/Drug Use: never Caregiver/support person: Yes Household members: spouse Marital status: service: Yes branch: [employer] Physical Exam Narrative: EXAM NARRATIVE: Alert oriented no acute distress. Neck is supple. Conjunctive is normal. Moist mucous membranes. No CVA tenderness. Abdomen soft nontender. Heart regular rhythm. Lung sounds are clear. No rash in exposed areas. He has some yellowed discharge from around the catheter at the penis tip. He has had erosion of the penis tip which appears old. There is no significant erythema. No bleeding. Course Vital Signs: Vital signs: Vital Signs Temperature 98.4 F 08/11/24 09:10 Pulse Rate 64 08/11/24 09:10 Respiratory Rate 17 08/11/24 09:10 Blood Pressure 139/75 08/11/24 09:10 Pulse Oximetry 93 08/11/24 09:10 Oxygen Delivery Me thod Room Air 08/11/24 09:10 MDM - Male Medical Decision Making Patient presents with pain at the tip of his penis with a catheter in place. Patient reports just finishing antibiotics earlier this week. He states he has been having ongoing problems with these intermittent pains. The pain is right at the tip of the penis. Less likely to represent bladder spasms. Will get a bladder scan and send urinalysis. I recommended changing catheter however he states he has appointment of catheter changed on Tuesday and have cystoscope and he states he has had a lot of pain discomfort with Bingham catheter changes and he is unwilling to do catheter change at this time. Will send urine sample although I advised him limitations of this with his indwelling catheter and potential for colonization. Patient likely has some yeast infection as well. Will send urinalysis and plan to treat with a dose of Diflucan, I advised him hygiene of the catheter area and follow-up with urology and if there are signs of UTI on urinalysis we will send antibiotic as well. Patient's urine shows findings consistent with UTI. Will prescribe Omnicef. He states he has finished the Keflex. I do ordered a dose of Omnicef here for him as well as Diflucan and will have him follow-up with urology Lab Data Laboratory Results Urine Color [place] (Yellow) A 08/11/24 09:55 Urine Appearance Clear (CLEAR) 08/11/24 09:55 Urine pH 7.5 (5-7) 08/11/24 09:55 Ur Specific [place] 1.009 (1.005-1.030) 08/11/24 09:55 Urine Protein Trace (Negative) A 08/11/24 09:55 Urine Glucose (UA) Negative (Normal) 08/11/24 09:55 Urine Ketones Negative (Negative) 08/11/24 09:55 Urine Blood 3+ (Negative) A 08/11/24 09:55 Urine Nitrate Positive (Negative) A 08/11/24 09:55 Urine Bilirubin Negative (Negative) 08/11/24 09:55 Urine Urobilinogen 0.2 mg/dL (Negative) 08/11/24 09:55 Ur Leukocyte Esterase 2+ (Negative) A 08/11/24 09:55 Urine RBC >100 /hpf (0-2) H 08/11/24 09:55 Urine WBC 51-100 /hpf (0-5) H 08/11/24 09:55 Ur Squamous Epith Cells 0-5 /hpf (0-5) 08/11/24 09:55 Amorphous Sediment Not Reportable 08/11/24 09:55 Urine Bacteria 1+ /hpf (NONE) H 08/11/24 09:55 Hyaline Casts 0.40 /lpf 08/11/24 09:55 All radiology interpretation(s) finalized by discharge Discharge Plan Discharge Patient Disposition: Home Clinical Impression: Acute lower urinary tract infection Condition: Stable Prescriptions: New cefdinir 300 mg capsule 300 mg PO BID 7 Days Qty: 14 0RF No Action terazosin 1 mg capsule 1 mg PO BID gabapentin 300 mg capsule 300 mg PO BEDTIME duloxetine 20 mg capsule,delayed release(DR/EC) 20 mg PO BID cephalexin 500 mg capsule 500 mg PO TID Qty: 21 0RF hydrocodone-acetaminophen 5-325 mg tablet 1 - 2 tab PO .Q4-6H PRN (Reason: pain) 7 Days Qty: 40 0RF Eliquis 5 mg tablet 5 mg PO BID Qty: 60 0RF Rx Instructions: Take 10mg (2 tabs) PO BID for 10 days, then take 5mg (1 tab) PO BID from then on until through with treatment cyanocobalamin (vitamin B-12) [Vitamin B-12] 100 mcg Tablet 100 mcg PO DAILY cholecalciferol (vitamin D3) [Vitamin D3] 25 mcg (1,000 unit) Tablet 25 mcg PO DAILY levothyroxine 125 mcg Tablet 125 mcg PO DAILY olopatadine 0.2 % Drops 1 drp OPHTHALMIC (EYE) DAILY Breztri Aerosphere 160-9-4.8 mcg/actuation Hfa Aerosol Inhaler 2 inh INHALATION BID Discharge Orders: Discharge ED (Routine); Ordered 08/11/24 Ordered By: Johan Green Referrals: Sulema Barraza, [employer] DES[employer] [Primary Care Provider, Family Practice] Activity Restrictions/Additional Instructions: Follow-up with urology on Tuesday as scheduled. Do not take cephalexin or Keflex if you have any leftover. Come back if fever, vomiting, worsening pain, any worse or concerns. 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
--- NOTE | 2024-08-11 09:58 | PC.NURSE ---
250 ml on bladder scan, wade in place appears to not be draining, sediment noted in wade tubing. replaced wade and got urine return in wade bag
[2024-08-11 10:06] LABS: Bilirubin Urine Negative (Negative); Blood Urine 3+ (Negative); Glucose Urine UA Negative (Normal); Ketones Urine Negative (Negative); Leukocyte Esterase Urine 2+ (Negative); Nitrate Urine Positive (Negative); Protein Urine Trace (Negative); Specific Gravity, Urine 1.009 (1.005-1.030); Urine Appearance Clear (CLEAR); Urobilinogen Urine 0.2 mg/dL (Negative); pH Urine 7.5 (5-7)
[2024-08-11 10:11] LABS: Add Urine Culture? Yes; Add Urine Microscopic? YES; Bacteria Urine 1+ /hpf; RBC Urine >100 /hpf (0-2); Squamous Epithelial Cell Urine 0-5 /hpf (0-5); Urine Color Orange (Yellow); WBC Urine 51-100 /hpf (0-5)
[2024-08-11] MEDS: fluconazole 100 mg Tablet 150 MG PO (10:44)
[2024-08-11] MEDS: cefdinir 300 MG CAPSULE PO (10:45)
[2024-08-11 10:48] VITALS: BP 128/70; PULSE 82; O2SAT 94
[2024-08-11 12:03] VITALS: BP 130/73; PULSE 57; O2SAT 96
== END 2024-08-11 12:04 | disposition home or self-care (01) ==
PROVIDERS: Emergency Provider Emergency Medicine; PCP Nurse Practitioner Family
DX: N39.0 Urinary tract infection, site not specified (principal); Z79.01 Long term (current) use of anticoagulants; F17.210 Nicotine dependence, cigarettes, uncomplicated; J44.9 Chronic obstructive pulmonary disease, unspecified; E11.22 Type 2 diabetes mellitus with diabetic chronic kidney disease; I13.0 Hypertensive heart and chronic kidney disease with heart failure and stage 1 through stage 4 chronic kidney disease, or unspecified chronic kidney disease; N18.9 Chronic kidney disease, unspecified; I50.9 Heart failure, unspecified; Z95.1 Presence of aortocoronary bypass graft
CPT/HCPCS: 12345; 51702; 81001; 87077; 87086; 87186; 99283; J9999

== ENCOUNTER 2024-08-13 12:00 | Outpatient (CLI) | payer OTHER, SELFPAY ==
[2024-08-13 13:11] LABS: Basophils # 0.1 10^3/uL (0.0-0.1); Basophils % 1.1 %; Eosinophils # 0.7 10^3/uL (0.0-0.8); Hematocrit 39.8 % (37-53); Lymphocytes # 1.4 10^3/uL (0.8-4.8); Lymphocytes % 19.1 %; Mean Corpuscular HGB Conc 29.4 g/dL (30-55); Mean Corpuscular Hemoglobin 26.2 pg (27-33); Mean Platelet Volume 9.2 fL (7.4-10.4); Monocytes # 0.6 10^3/uL (0.2-0.9); Monocytes % 7.9 %; Neutrophils # 4.57 10^3/uL (1.8-7.7); Neutrophils % 61.3 %; Nucleated Red Blood Cells % 0 %; Platelet Count 257 10^3/cmm (157-399); Red Blood Count 4.47 10^6/uL (3.85-5.65); Red Cell Distribution Width 16.8 % (12.1-15.1); White Blood Count 7.45 10^3/uL (3.29-11.43)
== END 2024-08-13 12:01 | disposition home or self-care (01) ==
LOC: LAB 12:01
PROVIDERS: PCP Nurse Practitioner Family; Visit Provider Urology
DX: N40.0 Benign prostatic hyperplasia without lower urinary tract symptoms (principal); I25.810 Atherosclerosis of coronary artery bypass graft(s) without angina pectoris; I25.5 Ischemic cardiomyopathy; N18.4 Chronic kidney disease, stage 4 (severe)
CPT/HCPCS: 36415; 85025; 87086

== ENCOUNTER → 2024-08-27 13:23 | Outpatient (BNVA) | payer OTHER, SELFPAY | PROVIDERS: PCP Nurse Practitioner Family; Visit Provider Specialist | DX: M17.12 Unilateral primary osteoarthritis, left knee (principal) | CPT/HCPCS: 20610; 73560; 73565; 99214; J1100; J2795; J3301; J9999 ==

== ENCOUNTER → 2024-09-13 11:14 | Outpatient (BNVA) | payer OTHER, SELFPAY | PROVIDERS: PCP Nurse Practitioner Family; Visit Provider Podiatrist Foot & Ankle Surgery | DX: E11.42 Type 2 diabetes mellitus with diabetic polyneuropathy (principal); B35.1 Tinea unguium; I73.9 Peripheral vascular disease, unspecified; G62.9 Polyneuropathy, unspecified | CPT/HCPCS: 11721 ==

== ENCOUNTER → 2024-10-10 09:40 | Outpatient (BNVA) | payer OTHER, SELFPAY | PROVIDERS: PCP Nurse Practitioner Family; Visit Provider Internal Medicine Cardiovascular Disease | DX: I11.0 Hypertensive heart disease with heart failure (principal); I50.9 Heart failure, unspecified; Z01.818 Encounter for other preprocedural examination; I48.91 Unspecified atrial fibrillation; Z79.01 Long term (current) use of anticoagulants; I47.10 Supraventricular tachycardia, unspecified; I25.5 Ischemic cardiomyopathy; E78.2 Mixed hyperlipidemia; Z95.1 Presence of aortocoronary bypass graft; Z98.890 Other specified postprocedural states; F17.210 Nicotine dependence, cigarettes, uncomplicated; R07.9 Chest pain, unspecified | CPT/HCPCS: 99214 ==

== ENCOUNTER 2024-11-05 08:46 | Outpatient (CLI) | payer OTHER, SELFPAY ==
[2024-11-05 09:02] VITALS: BMI 23.4
--- NOTE | 2024-11-05 09:15 | ECG_ITS ---
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 Interpretive Statements Procedure: Patient's resting blood pressure was 109/64 with a heart rate of 60 bpm. Resting EKG showed normal sinus rhythm with an old inferior infarction, possible anterior lateral infarction and nonspecific T wave abnormality. The Lexiscan was infused over a period of 20 seconds. A total of 0.4 mg of Lexiscan was infused. The stress phase was continued for a total of 5 minutes. Sestamibi was injected 20 seconds after the Lexiscan infusion. At the end of the stress phase the blood pressure was 116/69 with a heart rate of 66 bpm. The patient had no symptoms or EKG findings of inducible ischemia. After recovery, blood pressure was 112/71 with a heart rate of 64 bpm. Conclusion: 1. Normal EKG response to Lexiscan infusion 2. No Lexiscan induced chest pain or cardiac arrhythmia. 3. Normal blood pressure and heart rate response. 4. Nuclear myocardial perfusion scan pending; see separate report. Electronically Signed On 11-06-2024 23:31:36 CDT by Joshua Ventura M.D. [email or web address]
--- NOTE | 2024-11-05 09:15 | NMCV_ITS ---
NM tay perf SPECT r/s* [id number] Ghassan Kline Age: 79 Gender: M : 1945 Exam Date: 11/05/2024 09:57 Ordering Phys: Joshua Ventura MD ([email or web address]) Technologist: RENEE Juárez Exam Location: [facility] Indications: CP STRESS TEST Please see separate stress test report in [facility] for full findings IMAGE PROTOCOL Rest/Stress 1 Lexiscan Day Radiopharmaceutical Dose (mCi) Administration Site Administered by Rest: Tc-99m 10.5 IV Danielle Nadia, BARREL ROLLER Sestamibi Stress:Tc-99m 32.7 IV Danielle Nadia, BARREL ROLLER Sestamibi Rest: 05-Nov-2024 60 Discovery 630 Stress: 05-Nov-2024 30 Discovery 630 0.4mg Lexiscan. Supine position only as patient was unable to lay prone. SPECT RESULTS Technical Quality: Good Raw Data Analysis: Normal Image Corrections: No attenuation or motion correction applied Summed Stress Score: 4 Summed Rest Score: 5 Summed Difference Score: 0 PERFUSION FINDINGS There is a large area of fixed perfusion defect seen in the apical lateral and inferolateral [place]. 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 No evidence of ischemia. FUNCTIONAL RESULTS (calculated via Gated SPECT) Stress Image LV EF (%): 71 Stress EDV (mL):103 TID: 0.98 Stress ESV (mL):30 FUNCTIONAL FINDINGS: There is normal left ventricular systolic function. IMPRESSIONS 1. 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 No evidence of ischemia. 2. LV systolic function is normal Turner Jones MD (Electronically Signed) Final Date: 05 November 2024 16:33 S
[2024-11-05 11:19] VITALS: BP 112/71; PULSE 68
== END 2024-11-05 08:47 | disposition home or self-care (01) ==
PROVIDERS: PCP Nurse Practitioner Family; Visit Provider Internal Medicine Cardiovascular Disease
DX: R07.9 Chest pain, unspecified (principal)
CPT/HCPCS: 36415; 78452; 93017; 96374; A9500; J2785

== ENCOUNTER → 2024-11-09 10:48 | Outpatient (BNVA) | payer OTHER, SELFPAY | PROVIDERS: PCP Family Medicine Geriatric Medicine; Visit Provider Specialist | DX: M17.12 Unilateral primary osteoarthritis, left knee (principal) | CPT/HCPCS: 20610; J1100; J2795; J3301; J9999 ==